=== PATIENT | female | born 1940 | race Caucasian/White ===

== ENCOUNTER 2019-09-14 18:00 | Inpatient (IN) | payer OTHER ==
[~2019-09-14] VITALS: Ht 160 cm; Wt 98.7 kg
[2019-09-14] MEDS ORDERED: PANTOPRAZOLE 40 MG/10 ML VIAL INJ IV ONE (19:00)
[2019-09-14] MEDS ORDERED: SODIUM CHLORIDE 0.9% 1,000 ML IV ONE (19:00)
[2019-09-14] MEDS ORDERED: PANTOPRAZOLE 40mg/50ML NS AE 50 ML IV ONE (19:00)
[2019-09-14 19:06] LABS: Basophils # (auto) 0.1 10 ^3/uL (0-0.2); Basophils % (auto) 0.4 % (0.0-2.0); Eosinophils # (auto) 0.1 10 ^3/uL (0-0.8); Eosinophils % (auto) 0.5 % (0.0-7.0); Hematocrit 44.8 % (36.0-46.0); Lymphocytes # (auto) 1.4 10 ^3/uL (0.4-5.4); Lymphocytes % (auto) 9.2 % (10.0-50.0); Mean Corpuscular Hemoglobin 29.8 pg (28.0-32.0); Mean Corpuscular Hgb Conc. 33.4 g/dL (32.0-36.0); Mean Corpuscular Volume 89.2 fL (80.0-100.0); Monocytes # (auto) 0.9 10 ^3/uL (0-1.3); Monocytes % (auto) 5.8 % (0.0-12.0); Neutrophils # (auto) 13.2 10 ^3/uL (1.6-8.6); Neutrophils % (auto) 84.1 % (37.0-80.0); Nucleated Red Blood Cells % 0.1 %; Platelet Count (auto) 211 10^3/uL (140-450); Red Blood Cells 5.02 10^6/uL (4.0-5.20); Red Cell Distribution Width 13.1 % (11.8-14.3); White Blood Cell 15.7 10^3/uL (4.4-10.8)
[2019-09-14 19:20] LABS: Albumin 3.8 g/dL (3.4-5.0); Calcium 9.3 mg/dL (8.5-10.1); Potassium 3.9 mmol/L (3.5-5.1)
[2019-09-14 19:23] LABS: BUN/Creatinine Ratio 20.3; Bilirubin, Total 2.1 mg/dL (0.2-1.0)
[2019-09-14] MEDS ORDERED: IOHEXOL 300 MG/ML 100ML BOTTLE IJ ONE (21:20)
[2019-09-14 22:22] LABS: INR 1.07 (0.9-1.15); Partial Thromboplastin Time 28.8 sec (23.64-32.05)
[2019-09-15] MEDS ORDERED: MORPHINE SULFATE 4 MG/ML SYR/VIAL IV ONE (08:00)
[2019-09-15] MEDS ORDERED: ONDANSETRON HCL 4 MG/2 ML VIAL IV ONE (08:00)
[2019-09-15 08:46] LABS: Urine Bacteria NONE SEEN /hpf (None Seen); Urine Blood Negative /uL (Negative); Urine Hyaline Cast FEW /lpf (0 - 2); Urine WBC 9 /hpf (0 - 5)
[2019-09-15 08:48] LABS: Urine Specific Gravity > 1.050 (1.001-1.035)
[2019-09-15] MEDS ORDERED: NITROGLYCERIN 0.4 MG SL TAB SL PRN (10:00)
[2019-09-15] MEDS ORDERED: ACETAMINOPHEN 325 MG TAB PO PRN (10:00)
[2019-09-15] MEDS ORDERED: DOCUSATE SOD 100 MG CAP PO PRN (10:00)
[2019-09-15] MEDS ORDERED: MORPHINE SULF INJ 2 MG/ML SYRINGE 1ML IV PRN ×2 (10:00)
[2019-09-15] MEDS ORDERED: LORazepam 0.5 MG TAB PO PRN (10:00)
[2019-09-15] MEDS ORDERED: ONDANSETRON HCL 4 MG/2 ML VIAL IV PRN (10:00)
[2019-09-15] MEDS ORDERED: HYDROcodone-ACET 5/325MG TAB PO PRN (10:00)
[2019-09-15] MEDS: PANTOPRAZOLE 40 MG/10 ML VIAL INJ IV SCH ×2 (10:00→21:02)
[2019-09-15] MEDS ORDERED: ALUM & MAG HYDROX-SIMETH LIQ(MAALOX) 30 ML PO PRN (10:00)
[2019-09-15] MEDS: SOD CHL 0.45% 1,000 ML IV SCH ×2 (10:31→19:55)
[2019-09-15] MEDS ORDERED: metroNIDAZOLE 500MG/100ML 100 ML IV ONE (12:15)
[2019-09-15] MEDS ORDERED: DEXTROSE (50%) 50ML SYRG IV PRN (12:30)
[2019-09-15 12:47] LABS: Cholesterol 145 mg/dL (< 200)
[2019-09-15 12:51] LABS: HDL Cholesterol 34 mg/dL (40-59); LDL Cholesterol 99 mg/dL (< 100); Triglycerides 148 mg/dL (< 150)
[2019-09-15 13:20] VITALS: BP 121/37
[2019-09-15] MEDS ORDERED: metroNIDAZOLE 500MG/100ML 100 ML IV SCH (14:00)
[2019-09-15] MEDS: IPRATROPIUM BROM 0.5 MG/2.5ML INH SOL NEB SCH ×3 (14:56→22:00)
[2019-09-15] MEDS: InsuLIN REG 1unit/0.01ml Soln (100units/ml) SC SCH ×2 (17:00→20:53)
[2019-09-15] MEDS: ACCU-CHEK COMFORT CURVE STRIP VI SCH ×2 (17:28→20:53)
[2019-09-15] MEDS: PYRIDOSTIGMINE BROMIDE 60 MG TAB PO SCH ×2 (18:00→21:19)
--- NOTE | 2019-09-15 18:00 | NUR ---
Respiratory note: SCHED MED NEB TX HELD UNTIL COVID RESULTS ARE AVAILABLE. PT SHOWS NO S/S OF SOB OR RESPIRATORY DISTRESS WILL CONTINUE TO MONITOR.
[2019-09-15] MEDS: FUROSEMIDE 20 MG/2 ML VIAL IV SCH (18:14)
[2019-09-15] MEDS: SOTALOL HCL 80 MG TAB PO SCH (21:10)
[2019-09-15] MEDS ORDERED: APIXABAN 5 MG TAB PO SCH (22:00)
[2019-09-16] MEDS: IPRATROPIUM BROM 0.5 MG/2.5ML INH SOL NEB SCH ×6 (02:00→22:00)
[2019-09-16] MEDS: FUROSEMIDE 20 MG/2 ML VIAL IV SCH (06:00)
[2019-09-16] MEDS: PYRIDOSTIGMINE BROMIDE 60 MG TAB PO SCH ×4 (06:00→22:24)
[2019-09-16] MEDS: ACCU-CHEK COMFORT CURVE STRIP VI SCH ×4 (06:08→22:25)
[2019-09-16] MEDS: SOD CHL 0.45% 1,000 ML IV SCH (06:08)
[2019-09-16] MEDS: InsuLIN REG 1unit/0.01ml Soln (100units/ml) SC SCH ×4 (06:09→22:26)
[2019-09-16 07:17] LABS: INR 1.13 (0.9-1.15); Partial Thromboplastin Time 29.2 sec (23.64-32.05)
[2019-09-16 07:20] LABS: Albumin 3.1 g/dL (3.4-5.0); Anion Gap 5 (5-15); Blood Urea Nitrogen 12 mg/dL (7-18); Calcium 8.7 mg/dL (8.5-10.1); Carbon Dioxide 30 mmol/L (21-32); Chloride 102 mmol/L (98-107); Glucose 114 mg/dL (74-106); Magnesium 2.1 mg/dL (1.6-2.6); Potassium 3.9 mmol/L (3.5-5.1); Sodium 137 mmol/L (136-145)
[2019-09-16 07:28] LABS: Alanine Aminotransferase 23 U/L (13-56); Alkaline Phosphatase 62 U/L (45-117); Aspartate Aminotransferase 20 U/L (15-37); Bilirubin, Total 2.1 mg/dL (0.2-1.0); GFR African American 117 mL/min; GFR Non-African American 97 mL/min; Phosphorus 2.1 mg/dL (2.5-4.90); Total Protein 6.8 g/dL (6.4-8.2)
[2019-09-16 07:32] LABS: Basophils # (auto) 0.1 10 ^3/uL (0-0.2); Basophils % (auto) 0.5 % (0.0-2.0); Eosinophils # (auto) 0.1 10 ^3/uL (0-0.8); Eosinophils % (auto) 1.2 % (0.0-7.0); Hematocrit 39.3 % (36.0-46.0); Hemoglobin 13.1 g/dL (12.2-16.2); Lymphocytes # (auto) 1.8 10 ^3/uL (0.4-5.4); Lymphocytes % (auto) 17.1 % (10.0-50.0); Mean Corpuscular Hemoglobin 30.3 pg (28.0-32.0); Mean Corpuscular Hgb Conc. 33.4 g/dL (32.0-36.0); Mean Corpuscular Volume 90.7 fL (80.0-100.0); Monocytes # (auto) 1.1 10 ^3/uL (0-1.3); Monocytes % (auto) 10.6 % (0.0-12.0); Neutrophils # (auto) 7.6 10 ^3/uL (1.6-8.6); Neutrophils % (auto) 70.6 % (37.0-80.0); Nucleated Red Blood Cells % 0.1 %; Platelet Count (auto) 217 10^3/uL (140-450); Red Blood Cells 4.33 10^6/uL (4.0-5.20); White Blood Cell 10.7 10^3/uL (4.4-10.8)
[2019-09-16] MEDS ORDERED: LIDOCAINE VISCOUS 2% 15ML UD ONE (08:45)
[2019-09-16] MEDS ORDERED: SODIUM CHLORIDE LOCK 10 ML ONE (08:45)
[2019-09-16] MEDS ORDERED: MIDAZOLAM HCL 5 MG/ML-1ML VIAL ONE (08:45)
[2019-09-16] MEDS ORDERED: fentaNYL CITRATE 100 MCG/2 ML VL ONE (08:46)
[2019-09-16] MEDS ORDERED: diphenhdrAMINE HCL 50 MG/1 ML VL ONE (08:46)
--- NOTE | 2019-09-16 08:55 | NUR ---
Telemetry admit from ER [place] admitted to Telemetry unit after SBAR received. Patient oriented to CHANDRIKA SCOTTRN primary RN, unit,277 room,B bed, and unit policies regarding patient care and visiting hours. Patient now on continuous telemetry monitoring, tele box #50 and telemetry reading on arrival to unit is sr 90. Patient placed on bedside oxygen, weighed by bedscale and encouraged to call if they need something. All questions and concerns addressed, patient verbalized understanding. Note:
[2019-09-16] MEDS ORDERED: cefTRIAXone 1GM/50ML D5W 50 ML IV SCH (09:00)
[2019-09-16 09:22] VITALS: BP 94/58
[2019-09-16 09:30] VITALS: BP 128/52
--- NOTE | 2019-09-16 09:35 | NUR ---
Patient taken down to OR. V/S WNL no S/S of distress noted.
[2019-09-16] MEDS: PANTOPRAZOLE 40 MG TAB PO SCH ×2 (10:00→22:24)
--- NOTE | 2019-09-16 10:00 | NUR ---
Respiratory note: Scheduled medneb tx held, pt at procedure at this time. Will return for next scheduled tx.
--- NOTE | 2019-09-16 10:35 | NUR ---
Patient back from OR. V/S taken and WNL. No S/S of distress noted. Patient denies pain at this time. 98.8 temp 128/52 bp, rr 20, 94 hr,93% O2 sats
[2019-09-16] MEDS: SOTALOL HCL 80 MG TAB PO SCH ×2 (11:43→22:24)
--- NOTE | 2019-09-16 11:44 | NUR ---
Patient refusing all po medications at this time. per patient swallowing pills right now hurts to much and doesnt want it at this time. patient educated on importance of medication, patient verbalized understanding, patient still refused.
[2019-09-16 13:00] VITALS: BP 151/58
--- NOTE | 2019-09-16 14:20 | NUR ---
Lagos catheter dc'd Order to discontinue lagos catheter. Lagos dc'd with clean technique following deflation of balloon. Patient tolerated well with no complaints of pain. Continue care. Addendum: 09/16/19 at 1425 by CHANDRIKA SCOTT RN RN wrong patient
[2019-09-16 17:18] VITALS: BP 121/52
--- NOTE | 2019-09-16 18:00 | NUR ---
Medication refused Patient refusing 1800 medication. Per patient "my throat still hurts, I dont want any pills right now". Patient educated on benefits and risk of not taking medication, patient verbalized understanding and patient still refused.
--- NOTE | 2019-09-16 19:30 | NUR ---
Opening Shift Note Assumed care of patient AA&OX4. No S/S of distress/SOB or pain. Pt on 2L NC. Commode at bedside. Bed in lowest locked position, safety precautions in place, call light within reach. Instructed on POC and to call for assist PRN, will continue to monitor for changes Q1hr and PRN. Signed: 09/16/19 at 2123 by CHADD BLANC <Co-Signature Required> Co-Signed: 09/16/19 at 2123 by Joellen Lay RN RN
[2019-09-16 22:00] VITALS: BP 138/67
--- NOTE | 2019-09-16 23:38 | NUR ---
PT REFUSED MED NEB TX AT THIS TIME. PT DENIES ANY RESPIRATORY DISTRESS. NO SHORTNESS OF BREATH NOTED. PT HAD ACCIDENTALLY REMOVED OXYGEN. NC REPLACED AT THIS TIME. SPO2 92% ON 3L NC, HR 100. PT REFUSING 0200 MED NEB TX. WILL RETURN AT 0200 TO CHECK ON PT.
[2019-09-17] MEDS: IPRATROPIUM BROM 0.5 MG/2.5ML INH SOL NEB SCH ×4 (02:00→14:27)
[2019-09-17 05:00] VITALS: BP 138/49
--- NOTE | 2019-09-17 05:15 | NUR ---
PATIENT TEMP ELEVATED 100.0 COOLING MEASURE INITIATED. BLANKETS REMOVED AND ICE PACKS PLACED UNDER ARMS BILATERALLY. WILL RECHECK TEMPERATURE.
--- NOTE | 2019-09-17 05:45 | NUR ---
RECHECKED PATIENT TEMP 98.2 PATIENT RESTING IN BED, WILL CONTINUE TO MONITOR.
[2019-09-17 05:49] LABS: Hematocrit 38.9 % (36.0-46.0); Hemoglobin 13.2 g/dL (12.2-16.2)
[2019-09-17] MEDS: InsuLIN REG 1unit/0.01ml Soln (100units/ml) SC SCH ×3 (06:19→17:00)
[2019-09-17] MEDS: PYRIDOSTIGMINE BROMIDE 60 MG TAB PO SCH ×2 (06:19→14:48)
[2019-09-17] MEDS: ACCU-CHEK COMFORT CURVE STRIP VI SCH ×3 (06:21→17:00)
[2019-09-17 09:00] VITALS: BP 128/87
[2019-09-17] MEDS: SOTALOL HCL 80 MG TAB PO SCH (10:35)
[2019-09-17] MEDS: PANTOPRAZOLE 40 MG TAB PO SCH (10:35)
[2019-09-17] MEDS ORDERED: PANT40TA2 PO (12:39)
[2019-09-17] MEDS ORDERED: SUCR1TAB22 PO (12:39)
[2019-09-17] MEDS ORDERED: SUCRALFATE 1 GM TAB PO ONE (12:45)
--- NOTE | 2019-09-17 16:33 | NUR ---
09/17/19 Faxed to [facility] order for [facility] for safety, Pt, medication management, vitals for when patient is discharged Addendum: 09/18/19 at 1051 by Cara Manuel RN, CM disregard wrong patient Addendum: 09/18/19 at 1056 by Cara Manuel RN, CM disregard addendum above right patient
[2019-09-17 16:45] VITALS: BP 112/88
--- NOTE | 2019-09-17 17:11 | NUR ---
PATIENT DISCHARGING HOME WITH FAMILY. TELEMETRY BOX REMOVED AND RETURNED TO TELEMETRY DEPARTMENT. ALL IV ACCESS DISCONTINUED. ALL DISCHARGE INSTRUCTIONS GIVEN. ALL DISCHARGE PAPERWORK SIGNED.
== END 2019-09-17 17:15 | disposition home health service (06) | DRG 378 ==
LOC: EDBD 18:00 → ER 18:00 → TELE 18:01 → TELE-WESTW 09-16 08:42
PROVIDERS: ADMIT Hospitalist; ATTEND Internal Medicine
PROC: 0DB68ZX Excision of Stomach, Via Natural or Artificial Opening Endoscopic, Diagnostic (ICD-10-PCS; 2019-09-16)
PROC: 0DB98ZX Excision of Duodenum, Via Natural or Artificial Opening Endoscopic, Diagnostic (ICD-10-PCS; principal; 2019-09-16 09:50)
DX: K26.4 Chronic or unspecified duodenal ulcer with hemorrhage (principal); K86.1 Other chronic pancreatitis; R65.10 Systemic inflammatory response syndrome (SIRS) of non-infectious origin without acute organ dysfunction; I48.20 Chronic atrial fibrillation, unspecified; K29.81 Duodenitis with bleeding; I48.91 Unspecified atrial fibrillation; F32.9 Major depressive disorder, single episode, unspecified; G70.00 Myasthenia gravis without (acute) exacerbation; K21.9 Gastro-esophageal reflux disease without esophagitis; K44.9 Diaphragmatic hernia without obstruction or gangrene; K76.0 Fatty (change of) liver, not elsewhere classified; J44.9 Chronic obstructive pulmonary disease, unspecified; R13.10 Dysphagia, unspecified; M41.9 Scoliosis, unspecified; M47.9 Spondylosis, unspecified; E66.9 Obesity, unspecified; E11.40 Type 2 diabetes mellitus with diabetic neuropathy, unspecified; Z88.2 Allergy status to sulfonamides; Z90.49 Acquired absence of other specified parts of digestive tract; Z90.710 Acquired absence of both cervix and uterus; Z79.01 Long term (current) use of anticoagulants; Z98.49 Cataract extraction status, unspecified eye; Z80.8 Family history of malignant neoplasm of other organs or systems; Z82.49 Family history of ischemic heart disease and other diseases of the circulatory system; Z11.59 Encounter for screening for other viral diseases; Z68.36 Body mass index [BMI] 36.0-36.9, adult; K29.71 Gastritis, unspecified, with bleeding
CPT/HCPCS: 36415; 43239; 71045; 74177; 80053; 80061; 81001; 82150; 82962; 83036; 83605; 83690; 83735; 84100; 84443; 84484; 85014; 85018; 85025; 85610; 85730; 87040; 93005; 93306; 94640; 96365; 96375; C9113; G0378; J1815; J2250; J2405; J3490

== ENCOUNTER 2020-05-07 17:54 | Inpatient (IN) | payer OTHER ==
[~2020-05-07] VITALS: Ht 160 cm; Wt 72.0 kg
[~2020-05-07 17:54] MED LIST: PANT40TA2 PO; SUCR1TAB22 PO
[2020-05-07] MEDS ORDERED: DOPamine 1600MCG/ML D5W 250 ML IV SCH (18:30)
[2020-05-07 19:22] LABS: Basophils # (auto) 0.1 10 ^3/uL (0-0.2); Basophils % (auto) 0.6 % (0.0-2.0); Eosinophils # (auto) 0.2 10 ^3/uL (0-0.8); Eosinophils % (auto) 1.7 % (0.0-7.0); Hematocrit 38.2 % (36.0-46.0); Hemoglobin 12.8 g/dL (12.2-16.2); Lymphocytes # (auto) 4.5 10 ^3/uL (0.4-5.4); Lymphocytes % (auto) 47.5 % (10.0-50.0); Mean Corpuscular Hgb Conc. 33.6 g/dL (32.0-36.0); Mean Corpuscular Volume 86.4 fL (80.0-100.0); Monocytes % (auto) 10.3 % (0.0-12.0); Neutrophils # (auto) 3.8 10 ^3/uL (1.6-8.6); Neutrophils % (auto) 39.9 % (37.0-80.0); Platelet Count (auto) 261 10^3/uL (140-450); Red Blood Cells 4.42 10^6/uL (4.0-5.20); Red Cell Distribution Width 14.7 % (11.8-14.3); White Blood Cell 9.5 10^3/uL (4.4-10.8)
[2020-05-07 19:28] LABS: Anion Gap 8 (5-15); Blood Urea Nitrogen 17 mg/dL (7-18); Calcium 8.3 mg/dL (8.5-10.1); Carbon Dioxide 25 mmol/L (21-32); Chloride 107 mmol/L (98-107); Glucose 108 mg/dL (74-106); Magnesium 1.7 mg/dL (1.6-2.6); Potassium 4.7 mmol/L (3.5-5.1); Sodium 140 mmol/L (136-145)
[2020-05-07 19:31] LABS: Alanine Aminotransferase 13 U/L (13-56); Aspartate Aminotransferase 17 U/L (15-37); BUN/Creatinine Ratio 21.8; GFR African American 91 mL/min; GFR Non-African American 75 mL/min
[2020-05-07 19:35] LABS: Alkaline Phosphatase 75 U/L (45-117); Bilirubin, Total 0.7 mg/dL (0.2-1.0); Total Protein 6.9 g/dL (6.4-8.2)
[2020-05-07 19:42] LABS: INR 2.53 (0.9-1.15); Partial Thromboplastin Time 44.5 sec (23.0-31.2)
[2020-05-07] MEDS ORDERED: ONDANSETRON HCL 4 MG/2 ML VIAL ONE (19:42)
[2020-05-07] MEDS ORDERED: ONDANSETRON HCL 4 MG/2 ML VIAL IV ONE (19:45)
[2020-05-07] MEDS ORDERED: SODIUM CHLORIDE 0.9% 1,000 ML IV ONE (21:35)
[2020-05-07] MEDS ORDERED: ATROPINE SULFATE 1 MG/1 ML VIAL ONE (21:42)
[2020-05-07] MEDS ORDERED: ATROPINE SULF 1 MG/10ml SYR IV ONE (21:45)
[2020-05-07] MEDS ORDERED: NOREPINEPHRINE 8 MG/250ML KIT 250 ML IV ONE (21:50)
[2020-05-07] MEDS ORDERED: NOREPINEPHRINE 8 MG/250ML KIT 250 ML IV SCH (22:00)
[2020-05-07] MEDS ORDERED: LIDOCAINE 2%HCL (LOCAL ANESTH.) INJ 20ML MDV ONE (23:01)
[2020-05-07] MEDS ORDERED: phytonadione 1 ML ONE (23:27)
[2020-05-07] MEDS: SOD CHL 0.45% 1,000 ML IV SCH (23:30)
[2020-05-07] MEDS ORDERED: ONDANSETRON HCL 4 MG/2 ML VIAL IV PRN (23:30)
[2020-05-07] MEDS ORDERED: HYDROcodone-ACET 5/325MG TAB PO PRN (23:30)
[2020-05-07] MEDS ORDERED: PHYTONADIONE (VIT K)10 MG/ML 1ML VIAL IV ONE ×2 (23:30)
[2020-05-07] MEDS ORDERED: MORPHINE SULF INJ 2 MG/ML SYRINGE 1ML IV PRN (23:30)
[2020-05-07] MEDS ORDERED: NITROGLYCERIN 0.4 MG SL TAB SL PRN (23:30)
[2020-05-07] MEDS ORDERED: DEXTROSE (50%) 50ML SYRG IV PRN (23:45)
[2020-05-08] VITALS (38 sets, daily range): BP systolic 89–156; BP diastolic 24–73
[2020-05-08] MEDS: ACETAMINOPHEN 325 MG TAB PO PRN ×2 (02:06→21:25)
[2020-05-08 05:28] LABS: Basophils # (auto) 0.1 10 ^3/uL (0-0.2); Basophils % (auto) 0.8 % (0.0-2.0); Eosinophils # (auto) 0 10 ^3/uL (0-0.8); Eosinophils % (auto) 0.4 % (0.0-7.0); Hematocrit 34.8 % (36.0-46.0); Hemoglobin 11.7 g/dL (12.2-16.2); Lymphocytes # (auto) 3.4 10 ^3/uL (0.4-5.4); Lymphocytes % (auto) 48.8 % (10.0-50.0); Mean Corpuscular Hgb Conc. 33.6 g/dL (32.0-36.0); Mean Corpuscular Volume 86.2 fL (80.0-100.0); Monocytes # (auto) 0.8 10 ^3/uL (0-1.3); Monocytes % (auto) 10.8 % (0.0-12.0); Neutrophils # (auto) 2.7 10 ^3/uL (1.6-8.6); Neutrophils % (auto) 39.2 % (37.0-80.0); Platelet Count (auto) 227 10^3/uL (140-450); Red Blood Cells 4.04 10^6/uL (4.0-5.20); Red Cell Distribution Width 14.8 % (11.8-14.3)
[2020-05-08 05:45] LABS: Albumin 2.7 g/dL (3.4-5.0); Calcium 8.3 mg/dL (8.5-10.1); Potassium 4.4 mmol/L (3.5-5.1)
[2020-05-08 05:46] LABS: INR 1.62 (0.9-1.15)
[2020-05-08 05:48] LABS: BUN/Creatinine Ratio 24.7; Bilirubin, Total 1.1 mg/dL (0.2-1.0); Total Protein 6.1 g/dL (6.4-8.2)
[2020-05-08] MEDS: ACCU-CHEK COMFORT CURVE STRIP VI SCH ×4 (07:00→21:26)
[2020-05-08] MEDS: InsuLIN REG 1unit/0.01ml Soln (100units/ml) SC SCH ×4 (07:00→21:25)
[2020-05-08] MEDS ORDERED: ASCORBIC ACID 500 MG TAB PO SCH (10:00)
[2020-05-08] MEDS ORDERED: MULTIPLE VITAMIN TAB PO SCH (10:00)
[2020-05-08] MEDS ORDERED: ZINC SULFATE 220mg CAP or TAB PO SCH (10:00)
[2020-05-08] MEDS: FAMOTIDINE 20 MG TAB PO SCH (10:00)
[2020-05-08] MEDS ORDERED: VANCOMYCIN HCL 1000 MG VL ONE (11:03)
[2020-05-08] MEDS ORDERED: fentaNYL CITRATE 100 MCG/2 ML VL ONE (11:03)
[2020-05-08] MEDS ORDERED: LIDOCAINE 2%HCL (LOCAL ANESTH.) INJ 20ML MDV ONE ×2 (11:03→11:24)
[2020-05-08] MEDS ORDERED: MIDAZOLAM HCL 1MG/1ML-2 ML VIAL ONE (11:03)
[2020-05-08] MEDS ORDERED: VANCOMYCIN 1GM/250ML 250 ML IV ONE (11:04)
[2020-05-08] MEDS ORDERED: IODIXANOL 320MG/ML 100ML BTL IV ONE (11:24)
[2020-05-08] MEDS: SOD CHL 0.45% 1,000 ML IV SCH (12:50)
[2020-05-09] MEDS: SOD CHL 0.45% 1,000 ML IV SCH (02:10)
[2020-05-09 04:59] VITALS: BP 140/73
[2020-05-09] MEDS: ACCU-CHEK COMFORT CURVE STRIP VI SCH ×4 (06:36→21:17)
[2020-05-09] MEDS: InsuLIN REG 1unit/0.01ml Soln (100units/ml) SC SCH ×4 (06:37→21:18)
[2020-05-09 07:46] LABS: INR 1.14 (0.9-1.15)
[2020-05-09 08:00] VITALS: BP 145/78
[2020-05-09] MEDS: FAMOTIDINE 20 MG TAB PO SCH (09:55)
[2020-05-09 12:00] VITALS: BP 119/56
[2020-05-09] MEDS: DOCUSATE SOD 100 MG CAP PO PRN (12:12)
[2020-05-09 16:00] VITALS: BP 109/76
[2020-05-09] MEDS: ACETAMINOPHEN 325 MG TAB PO PRN (21:18)
[2020-05-09 23:20] VITALS: BP 147/62
[2020-05-10 04:56] VITALS: BP 117/62
[2020-05-10 06:33] LABS: INR 1.08 (0.9-1.15)
[2020-05-10] MEDS: ACCU-CHEK COMFORT CURVE STRIP VI SCH ×2 (06:33→11:54)
[2020-05-10] MEDS: InsuLIN REG 1unit/0.01ml Soln (100units/ml) SC SCH ×2 (06:33→11:30)
[2020-05-10 08:30] VITALS: BP 133/76
[2020-05-10] MEDS: FAMOTIDINE 20 MG TAB PO SCH (10:46)
[2020-05-10] MEDS: DOCUSATE SOD 100 MG CAP PO PRN ×2 (10:46→22:38)
[2020-05-10] MEDS ORDERED: METOPROLOL TARTRATE 50 MG TAB PO ONE (12:15)
[2020-05-10] MEDS ORDERED: PYRIDOSTIGMINE BROMIDE 60 MG TAB PO ONE (12:15)
[2020-05-10 12:30] VITALS: BP 113/60
[2020-05-10 14:51] LABS: Urine Bacteria FEW /hpf (None Seen); Urine Blood Negative /uL (Negative); Urine Mucus FEW (None Seen); Urine Specific Gravity 1.017 (1.001-1.035); Urine WBC 22 /hpf (0 - 5)
[2020-05-10 17:00] VITALS: BP 112/51
[2020-05-10] MEDS ORDERED: WARFARIN SODIUM 5 MG TAB PO ONE (17:00)
[2020-05-10] MEDS: PYRIDOSTIGMINE BROMIDE 60 MG TAB PO SCH ×2 (17:52→22:35)
[2020-05-10] MEDS ORDERED: CLOP75TA28 PO (18:09)
[2020-05-10] MEDS ORDERED: WARF2.5T39 PO (18:09)
[2020-05-10] MEDS ORDERED: PYRI30TA PO (18:09)
[2020-05-10] MEDS ORDERED: FAMO20TA10 PO (18:09)
[2020-05-10] MEDS ORDERED: MIRT-66 PO (18:09)
[2020-05-10] MEDS ORDERED: FLE50T PO (18:09)
[2020-05-10 22:00] VITALS: BP 128/66
[2020-05-10] MEDS: METOPROLOL TARTRATE 50 MG TAB PO SCH (22:35)
[2020-05-10] MEDS: ACETAMINOPHEN 325 MG TAB PO PRN (22:39)
[2020-05-11 05:00] VITALS: BP 106/62
[2020-05-11] MEDS: PYRIDOSTIGMINE BROMIDE 60 MG TAB PO SCH ×4 (05:31→22:03)
[2020-05-11 06:28] LABS: INR 1.1 (0.9-1.15)
[2020-05-11 06:32] LABS: Potassium 3.6 mmol/L (3.5-5.1)
[2020-05-11 06:37] LABS: BUN/Creatinine Ratio 18.8; Calcium 8.8 mg/dL (8.5-10.1)
[2020-05-11 07:00] LABS: Hematocrit 40.6 % (36.0-46.0); Hemoglobin 13.2 g/dL (12.2-16.2); Mean Corpuscular Hemoglobin 28.7 pg (28.0-32.0); Mean Corpuscular Hgb Conc. 32.4 g/dL (32.0-36.0); Mean Corpuscular Volume 88.7 fL (80.0-100.0); Platelet Count (auto) 198 10^3/uL (140-450); Red Blood Cells 4.57 10^6/uL (4.0-5.20); Red Cell Distribution Width 14.7 % (11.8-14.3); White Blood Cell 5.9 10^3/uL (4.4-10.8)
[2020-05-11 07:02] LABS: Band Neutrophils % (manual) 0; Basophils % (manual) 0 (0.0-2.0); Blast Cells 0; Metamyelocytes % 0; Myelocytes % 0; Promyelocytes % 0; Reactive Lymphocytes 0
[2020-05-11 08:30] VITALS: BP 144/67
[2020-05-11] MEDS: FAMOTIDINE 20 MG TAB PO SCH (09:13)
[2020-05-11] MEDS: METOPROLOL TARTRATE 50 MG TAB PO SCH ×2 (09:13→21:46)
[2020-05-11 10:25] LABS: Eosinophils % (manual) 4 (0-7); Lymphocytes % (manual) 64 (10.0-50.0); Monocytes % (manual) 5 (0-12)
[2020-05-11] MEDS ORDERED: FLECAINIDE ACETATE 50 MG TAB PO ONE (11:00)
[2020-05-11] MEDS ORDERED: POTASSIUM CHL 20 Meq TABLET PO ONE (11:00)
[2020-05-11] MEDS ORDERED: cefTRIAXone 1GM/50ML D5W 50 ML IV ONE (11:00)
[2020-05-11 12:30] VITALS: BP 124/60
[2020-05-11 16:39] VITALS: BP 107/47
[2020-05-11] MEDS ORDERED: WARFARIN SODIUM 2 MG TAB PO ONE (17:00)
[2020-05-11 22:01] VITALS: BP 117/49
[2020-05-11] MEDS: FLECAINIDE ACETATE 50 MG TAB PO SCH (22:02)
[2020-05-11] MEDS: ACETAMINOPHEN 325 MG TAB PO PRN (22:06)
[2020-05-12 05:18] VITALS: BP 126/64
[2020-05-12 05:56] LABS: INR 1.17 (0.9-1.15); Partial Thromboplastin Time 29.9 sec (23.0-31.2)
[2020-05-12] MEDS: PYRIDOSTIGMINE BROMIDE 60 MG TAB PO SCH ×4 (06:04→22:14)
[2020-05-12 06:09] LABS: Calcium 8.5 mg/dL (8.5-10.1); Potassium 3.7 mmol/L (3.5-5.1)
[2020-05-12] MEDS: cefTRIAXone 1GM/50ML D5W 50 ML IV SCH (08:04)
[2020-05-12 09:00] VITALS: BP 140/52
[2020-05-12] MEDS: FAMOTIDINE 20 MG TAB PO SCH (09:09)
[2020-05-12] MEDS: METOPROLOL TARTRATE 50 MG TAB PO SCH ×2 (09:11→22:14)
[2020-05-12] MEDS: FLECAINIDE ACETATE 50 MG TAB PO SCH ×2 (09:11→22:14)
[2020-05-12 13:00] VITALS: BP 107/59
[2020-05-12 16:48] VITALS: BP 100/65
[2020-05-12] MEDS ORDERED: WARFARIN SODIUM 2 MG TAB PO ONE (17:00)
[2020-05-12 22:00] VITALS: BP 123/55
[2020-05-12] MEDS: ACETAMINOPHEN 325 MG TAB PO PRN (22:18)
[2020-05-13 05:00] VITALS: BP 112/64
[2020-05-13] MEDS: PYRIDOSTIGMINE BROMIDE 60 MG TAB PO SCH ×4 (05:35→22:00)
[2020-05-13 05:54] LABS: Basophils # (auto) 0.1 10 ^3/uL (0-0.2); Basophils % (auto) 1.4 % (0.0-2.0); Eosinophils # (auto) 0.3 10 ^3/uL (0-0.8); Eosinophils % (auto) 5.5 % (0.0-7.0); Hematocrit 37.7 % (36.0-46.0); Hemoglobin 13.1 g/dL (12.2-16.2); Lymphocytes # (auto) 3.2 10 ^3/uL (0.4-5.4); Lymphocytes % (auto) 52.6 % (10.0-50.0); Mean Corpuscular Hemoglobin 29.7 pg (28.0-32.0); Mean Corpuscular Hgb Conc. 34.7 g/dL (32.0-36.0); Mean Corpuscular Volume 85.6 fL (80.0-100.0); Monocytes # (auto) 0.8 10 ^3/uL (0-1.3); Monocytes % (auto) 12.9 % (0.0-12.0); Neutrophils # (auto) 1.7 10 ^3/uL (1.6-8.6); Neutrophils % (auto) 27.6 % (37.0-80.0); Nucleated Red Blood Cells % 0.3 %; Platelet Count (auto) 190 10^3/uL (140-450); Red Cell Distribution Width 14.6 % (11.8-14.3); White Blood Cell 6.1 10^3/uL (4.4-10.8)
[2020-05-13 06:08] LABS: INR 1.26 (0.9-1.15)
[2020-05-13 09:00] VITALS: BP 132/74
[2020-05-13] MEDS: cefTRIAXone 1GM/50ML D5W 50 ML IV SCH (09:52)
[2020-05-13] MEDS: FLECAINIDE ACETATE 50 MG TAB PO SCH ×2 (09:53→22:00)
[2020-05-13] MEDS: FAMOTIDINE 20 MG TAB PO SCH (09:54)
[2020-05-13] MEDS: METOPROLOL TARTRATE 50 MG TAB PO SCH ×3 (09:55→21:57)
[2020-05-13 13:00] VITALS: BP 115/58
[2020-05-13 16:43] VITALS: BP 124/64
[2020-05-13] MEDS ORDERED: WARFARIN SODIUM 2 MG TAB PO ONE (17:00)
[2020-05-13] MEDS: ACETAMINOPHEN 325 MG TAB PO PRN (22:03)
[2020-05-14 00:50] VITALS: BP 128/70
[2020-05-14 01:08] VITALS: BP 113/43
[2020-05-14 01:11] VITALS: BP 113/43
== END 2020-05-14 01:45 | disposition short-term general hospital (02) | DRG 229 ==
LOC: EDBD 17:54 → ER 17:54 → TELE 23:29 → ICU CENTRL 05-08 01:00 → DOU IN ICU 05-08 02:41 → TELE-WESTW 05-08 12:56
PROVIDERS: ADMIT Nurse Practitioner Family; ATTEND Internal Medicine
PROC: 5A1223Z Performance of Cardiac Pacing, Continuous (ICD-10-PCS; principal; 2020-05-07)
PROC: 02PA3NZ Removal of Intracardiac Pacemaker from Heart, Percutaneous Approach (ICD-10-PCS; 2020-05-07)
PROC: 0JH606Z Insertion of Pacemaker, Dual Chamber into Chest Subcutaneous Tissue and Fascia, Open Approach (ICD-10-PCS; 2020-05-07)
PROC: 02H63JZ Insertion of Pacemaker Lead into Right Atrium, Percutaneous Approach (ICD-10-PCS; 2020-05-07)
PROC: 02HK3JZ Insertion of Pacemaker Lead into Right Ventricle, Percutaneous Approach (ICD-10-PCS; 2020-05-07)
PROC: 06HM33Z Insertion of Infusion Device into Right Femoral Vein, Percutaneous Approach (ICD-10-PCS; 2020-05-07)
PROC: B51B1ZA Fluoroscopy of Right Lower Extremity Veins using Low Osmolar Contrast, Guidance (ICD-10-PCS; 2020-05-07)
PROC: B5171ZZ Fluoroscopy of Left Subclavian Vein using Low Osmolar Contrast (ICD-10-PCS; 2020-05-07)
DX: I44.2 Atrioventricular block, complete (principal); D68.69 Other thrombophilia; N39.0 Urinary tract infection, site not specified; I48.0 Paroxysmal atrial fibrillation; G70.00 Myasthenia gravis without (acute) exacerbation; I10 Essential (primary) hypertension; E11.9 Type 2 diabetes mellitus without complications; K21.9 Gastro-esophageal reflux disease without esophagitis; R00.1 Bradycardia, unspecified; R00.0 Tachycardia, unspecified; Z20.822 Contact with and (suspected) exposure to COVID-19; Z80.0 Family history of malignant neoplasm of digestive organs; Z82.49 Family history of ischemic heart disease and other diseases of the circulatory system; Z86.73 Personal history of transient ischemic attack (TIA), and cerebral infarction without residual deficits; Z90.710 Acquired absence of both cervix and uterus; Z95.5 Presence of coronary angioplasty implant and graft; Z90.49 Acquired absence of other specified parts of digestive tract
CPT/HCPCS: 33208; 33210; 36415; 70450; 71045; 75710; 80048; 80053; 81001; 82962; 83036; 83735; 83880; 84443; 84484; 85007; 85025; 85027; 85610; 85730; 86850; 86900; 86901; 87081; 87426; 93005; 93306; 96365; 96366; 96367; 96375; 99152; 99291; C1751; C1785; G0378; J0461; J0696; J2250; J2405; J3430; Q9967

== ENCOUNTER 2022-09-04 10:59 | Emergency (ER) | payer OTHER ==
[~2022-09-04] VITALS: Ht 165.1 cm; Wt 100.0 kg
[~2022-09-04 10:59] MED LIST changes: +CLOP75TA28 PO; +FAMO20TA10 PO; +FLE50T PO; +MIRT-94 PO; +PYRI30TA PO; -SUCR1TAB22 PO; +WARF-110 PO
[2022-09-04 11:39] LABS: Basophils # (auto) 0.1 10 ^3/uL (0-0.2); Basophils % (auto) 0.5 % (0.0-2.0); Eosinophils # (auto) 0 10 ^3/uL (0-0.8); Eosinophils % (auto) 0.3 % (0.0-7.0); Hematocrit 37.7 % (36.0-46.0); Hemoglobin 12.6 g/dL (12.2-16.2); Lymphocytes # (auto) 1.4 10 ^3/uL (0.4-5.4); Lymphocytes % (auto) 12.3 % (10.0-50.0); Mean Corpuscular Hemoglobin 30.1 pg (28.0-32.0); Mean Corpuscular Hgb Conc. 33.5 g/dL (32.0-36.0); Mean Corpuscular Volume 89.8 fL (80.0-100.0); Monocytes # (auto) 1.3 10 ^3/uL (0-1.3); Monocytes % (auto) 11.7 % (0.0-12.0); Neutrophils # (auto) 8.4 10 ^3/uL (1.6-8.6); Neutrophils % (auto) 75.2 % (37.0-80.0); Red Cell Distribution Width 13.2 % (11.8-14.3); White Blood Cell 11.1 10^3/uL (4.4-10.8)
[2022-09-04 11:58] LABS: INR 2.8 (0.9-1.15)
[2022-09-04] MEDS ORDERED: fentaNYL CITRATE 100 MCG/2 ML VL IV ONE (13:30)
[2022-09-04] MEDS ORDERED: levoFLOXacin 500MG 100 ML IV ONE (13:30)
[2022-09-04] MEDS ORDERED: metroNIDAZOLE 500MG/100ML 100 ML IV ONE (13:30)
[2022-09-04] MEDS ORDERED: SODIUM CHLORIDE 0.9% 2,000 ML IV ONE (13:30)
[2022-09-04 15:38] LABS: Potassium 3.7 mmol/L (3.5-5.1); Sodium 141 mmol/L (136-145)
[2022-09-04 15:39] LABS: Alkaline Phosphatase 47 U/L (45-117); Anion Gap 7 (5-15); Aspartate Aminotransferase 17 U/L (15-37); BUN/Creatinine Ratio 14.3 (10.0-20.0); Blood Urea Nitrogen 12 mg/dL (7-18); Carbon Dioxide 25 mmol/L (21-32); Chloride 109 mmol/L (98-107); GFR African American 83 mL/min; GFR Non-African American 69 mL/min; Glucose 131 mg/dL (74-106)
[2022-09-04 15:40] LABS: Alanine Aminotransferase 14 U/L (13-56); Albumin 3.2 g/dL (3.4-5.0); Bilirubin, Total 1.7 mg/dL (0.2-1.0); Calcium 8.5 mg/dL (8.5-10.1); Total Protein 6.5 g/dL (6.4-8.2)
[2022-09-04 21:43] VITALS: BP 140/58
== END 2022-09-04 22:27 | disposition short-term general hospital (02) ==
LOC: ER 10:59 → EDBD 10:59 → ER 22:10
DX: R60.9 Edema, unspecified (principal); K57.92 Diverticulitis of intestine, part unspecified, without perforation or abscess without bleeding; R06.02 Shortness of breath; I10 Essential (primary) hypertension; E11.9 Type 2 diabetes mellitus without complications; K21.9 Gastro-esophageal reflux disease without esophagitis; E78.5 Hyperlipidemia, unspecified; I48.91 Unspecified atrial fibrillation; Z86.73 Personal history of transient ischemic attack (TIA), and cerebral infarction without residual deficits; Z90.710 Acquired absence of both cervix and uterus; Z90.49 Acquired absence of other specified parts of digestive tract; Z90.89 Acquired absence of other organs; Z98.890 Other specified postprocedural states; Z88.2 Allergy status to sulfonamides; Z79.899 Other long term (current) drug therapy
CPT/HCPCS: 36415; 71045; 72100; 74176; 80053; 83880; 84484; 85025; 85610; 85730; 93005

== ENCOUNTER 2023-06-24 23:10 | Emergency (ER) | payer OTHER ==
[~2023-06-24] VITALS: Ht 157.5 cm; Wt 77.2 kg
[2023-06-24 23:33] LABS: Basophils # (auto) 0.1 10 ^3/uL (0-0.2); Basophils % (auto) 1.4 % (0.0-2.0); Eosinophils # (auto) 0.3 10 ^3/uL (0-0.8); Eosinophils % (auto) 3.1 % (0.0-7.0); Hematocrit 39.7 % (36.0-46.0); Hemoglobin 12.7 g/dL (12.2-16.2); Lymphocytes # (auto) 2.4 10 ^3/uL (0.4-5.4); Lymphocytes % (auto) 28.8 % (10.0-50.0); Mean Corpuscular Hemoglobin 28.3 pg (28.0-32.0); Mean Corpuscular Hgb Conc. 31.9 g/dL (32.0-36.0); Mean Corpuscular Volume 88.8 fL (80.0-100.0); Monocytes # (auto) 0.8 10 ^3/uL (0-1.3); Monocytes % (auto) 9.4 % (0.0-12.0); Neutrophils # (auto) 4.7 10 ^3/uL (1.6-8.6); Neutrophils % (auto) 57.3 % (37.0-80.0); Red Blood Cells 4.48 10^6/uL (4.0-5.20); Red Cell Distribution Width 13.9 % (11.8-14.3); White Blood Cell 8.2 10^3/uL (4.4-10.8)
[2023-06-24 23:51] LABS: Alanine Aminotransferase 13 U/L (7-40); Alkaline Phosphatase 82 U/L (46-116); Anion Gap 5 (5-15); Aspartate Aminotransferase 24 U/L (13-40); BUN/Creatinine Ratio 12.5 (10.0-20.0); Blood Urea Nitrogen 11 mg/dL (9-23); Calcium 9.8 mg/dL (8.7-10.4); Carbon Dioxide 28 mmol/L (20-30); Chloride 106 mmol/L (98-107); Glucose 114 mg/dL (74-106); Potassium 4.1 mmol/L (3.5-5.1); Sodium 139 mmol/L (136-145)
[2023-06-24 23:52] LABS: Albumin 4.5 g/dL (3.2-4.8); Total Protein 7.4 g/dL (5.7-8.2)
[2023-06-25] MEDS: NITROGLYCERIN 2% OINT 1GM PKG TD ONE (03:34)
[2023-06-25] MEDS: FUROSEMIDE 40 MG/4 ML VIAL IV ONE (04:04)
[2023-06-25 08:29] VITALS: BP 124/71; TEMP 97.8
[2023-06-25 08:36] VITALS: PULSE 102; RESP 18; O2SAT 95
== END 2023-06-25 09:00 | disposition short-term general hospital (02) ==
LOC: ER 23:10
DX: I11.0 Hypertensive heart disease with heart failure (principal); I50.9 Heart failure, unspecified; K21.9 Gastro-esophageal reflux disease without esophagitis; E78.5 Hyperlipidemia, unspecified; Z86.73 Personal history of transient ischemic attack (TIA), and cerebral infarction without residual deficits; Z88.2 Allergy status to sulfonamides
CPT/HCPCS: 36415; 71045; 80053; 83880; 84484; 85025; 93005; 96374; 99285; J1940

== ENCOUNTER 2023-12-19 02:23 | Emergency (ER) | payer OTHER ==
[~2023-12-19] VITALS: Ht 165.1 cm; Wt 190.0 kg
[2023-12-19 03:04] LABS: Basophils # (auto) 0.1 10 ^3/uL (0-0.2); Basophils % (auto) 0.9 % (0.0-2.0); Eosinophils # (auto) 0.3 10 ^3/uL (0-0.8); Eosinophils % (auto) 4.3 % (0.0-7.0); Hematocrit 30.7 % (36.0-46.0); Hemoglobin 10.2 g/dL (12.2-16.2); Lymphocytes # (auto) 2.3 10 ^3/uL (0.4-5.4); Lymphocytes % (auto) 31.9 % (10.0-50.0); Mean Corpuscular Hemoglobin 29.8 pg (28.0-32.0); Mean Corpuscular Hgb Conc. 33.2 g/dL (32.0-36.0); Mean Corpuscular Volume 89.8 fL (80.0-100.0); Monocytes # (auto) 0.8 10 ^3/uL (0-1.3); Monocytes % (auto) 11.4 % (0.0-12.0); Neutrophils # (auto) 3.6 10 ^3/uL (1.6-8.6); Neutrophils % (auto) 51.5 % (37.0-80.0); Platelet Count (auto) 232 10^3/uL (140-450); Red Blood Cells 3.42 10^6/uL (4.0-5.20); Red Cell Distribution Width 14.7 % (11.8-14.3); White Blood Cell 7.1 10^3/uL (4.4-10.8)
[2023-12-19 03:06] LABS: Alanine Aminotransferase 12 U/L (7-40); Albumin 4.3 g/dL (3.2-4.8); Alkaline Phosphatase 82 U/L (46-116); Anion Gap 4 (5-15); Aspartate Aminotransferase 13 U/L (13-40); BUN/Creatinine Ratio 16.7 (10.0-20.0); Blood Urea Nitrogen 15 mg/dL (9-23); Calcium 9.7 mg/dL (8.7-10.4); Carbon Dioxide 26 mmol/L (20-31); Chloride 111 mmol/L (98-107); Glucose 164 mg/dL (74-106); Potassium 4.1 mmol/L (3.5-5.1); Sodium 141 mmol/L (136-145)
[2023-12-19 03:07] LABS: Bilirubin, Total 0.6 mg/dL (0.2-1.0); Total Protein 6.8 g/dL (5.7-8.2)
[2023-12-19 03:36] VITALS: TEMP 97.6
[2023-12-19 03:59] LABS: Urine Bacteria None Seen /hpf (None Seen)
[2023-12-19 04:17] VITALS: PULSE 82; RESP 14; O2SAT 98
[2023-12-19 04:20] LABS: Urine Blood Negative /uL (Negative); Urine Clarity Clear (Clear); Urine Color Light-Yellow (Yellow); Urine Protein, UAD Negative (Negative); Urine Specific Gravity 1.013 (1.001-1.035); Urine Urobilinogen Normal (Negative); Urine WBC 20 /hpf (0 - 5)
[2023-12-19] MEDS ORDERED: LEVO500T91 PO (05:17)
[2023-12-19 07:39] VITALS: BP 124/39; PULSE 78; RESP 17; O2SAT 92
== END 2023-12-19 09:01 | disposition home or self-care (01) ==
LOC: ER 02:23 → EDBD 02:23 → ER 09:01
DX: R07.9 Chest pain, unspecified (principal); N39.0 Urinary tract infection, site not specified; R00.2 Palpitations; K21.9 Gastro-esophageal reflux disease without esophagitis; E11.9 Type 2 diabetes mellitus without complications; E78.5 Hyperlipidemia, unspecified; I10 Essential (primary) hypertension; I48.91 Unspecified atrial fibrillation; Z86.73 Personal history of transient ischemic attack (TIA), and cerebral infarction without residual deficits; Z79.01 Long term (current) use of anticoagulants; Z79.02 Long term (current) use of antithrombotics/antiplatelets; Z88.2 Allergy status to sulfonamides; Z90.49 Acquired absence of other specified parts of digestive tract; Z90.710 Acquired absence of both cervix and uterus; Z95.0 Presence of cardiac pacemaker
CPT/HCPCS: 36415; 71045; 80053; 81001; 83735; 83880; 84484; 85025; 93005

== ENCOUNTER 2024-07-21 14:57 | Emergency (ER) | payer OTHER ==
[~2024-07-21] VITALS: Ht 160 cm; Wt 75.0 kg
[~2024-07-21 14:57] MED LIST changes: +LEVO500T91 PO
--- NOTE | 2024-07-21 15:14 | ECG ---
[facility] Test Date: 2024-07-21 Test Time: 15:09:20 Pat Name: MORENA LANE Department: ED Room: Gender: F Aquatic Instructor: NIRAJ : 1940 Requested By: MEEK SALGUERO Order Number: [id number] Reading MD: Measurements Intervals [place] Rate: 70 P: 43 SC: 204 QRS: -61 QRSD: 184 T: 93 QT: 522 QTc: 564 Interpretive Statements Atrial-ventricular dual-paced complexes No further analysis attempted due to paced rhythm Please click the below link to view image of tracing.
[2024-07-21] MEDS: SODIUM CHLORIDE 0.9% 500 ML IV ONE (15:30)
--- NOTE | 2024-07-21 15:37 | ED.PDOC ---
History of Present Illness HPI Comments This is an 83-year-old female who comes in with chief complaint of generalized weakness over the past two weeks. The patient has had a decreased appetite and has been having a significant amount of diarrhea. She is also complaining of some epigastric pain which she rates as a 6/10. There has been no fever or chills. The patient went to the [facility] and at the clinic her blood pressure was low so they called 911. The blood pressure was 88 systolic so the patient had an IV Hep-Lock established and was given normal saline at a 500 cc bolus. EN route, the patient had an Accu-Chek of 127. She denies any chest pain with the abdominal pain. For the nausea, the patient was given Zofran 4 mg IV push. When she arrived, she is stating that the nausea has resolved. Chief Complaint: General Weakness Time Seen by MD: 15:01 Primary Care Provider: FERN Reviewed Notes: Nurses Notes, Aging Box Hand Notes, Medications, Allergies (Allergies listed above) Allergies: Coded Allergies: Sulfa Antibiotics (Verified Allergy, Unknown, 09/04/22) Home Meds Active Scripts Levofloxacin Hemihydrate (LEVAQUIN 500 MG) 500 Mg Tab, 1 TAB PO DAILY, #7 TAB Prov:SAMANTHA NAVAS MD 12/19/23 Pantoprazole Sodium Sesquihydr (Protonix) 40 Mg Tab, 40 MG PO BID, #60 TAB Prov:USMAN UNDERWOOD MD 09/17/19 Reported Medications Pyridostigmine Cushing (Pyridostigmine Cushing) 30 Mg Tab, 60 MG PO 4 TIMES A DAY, TAB 05/10/20 Flecainide Acetate (TAMBOCOR TABLET) 50 Mg Tb, 50 MG PO BID, TAB 05/10/20 Warfarin Sodium (Warfarin Sodium) 2.5 Mg Tab, 2.5 MG PO DAILY for 30 Days, MG 05/10/20 Mirtazapine (REMERON) 30 Mg Tab, 15 MG PO HS, TAB 05/10/20 Clopidogrel Bisulfate (Plavix) 75 Mg Tab, 75 MG PO DAILY, TAB 05/10/20 Famotidine (PEPCID TABLET) 20 Mg Tb, 20 MG PO BID, TAB 05/10/20 Information Source: Patient, Emergency Med Personnel Mode of Arrival: EMS Severity: Moderate Timing: Days Duration: Since onset Prehospital treatment: 12 Lead EKG, Accucheck (127), Security Support Analyst, IVF, Other (Normal saline bolus. Zofran 4 mg IV push) Location: Epigastric type abdominal pain with the diarrhea nausea Past Medical History PAST MEDICAL HISTORY: AFIB, Cancer (Previous history of cervical cancer), CVA, DM, GERD, High Lipids, HTN, IL, UTI'S Past Medical History (Other): Myasthenia gravis, neuropathy Surgical History: Cholecystectomy, Hysterectomy, Pacemaker, PTCA, Thyroidectomy Surgical History (Other): Surgery of the thymus gland TOWER AIR TRAFFIC CONTROL SPECIALIST History: No Pertinent TOWER AIR TRAFFIC CONTROL SPECIALIST History Family History Family History: Reviewed,noncontributory to illness Social History Smoker: Non-Smoker Alcohol: Denies ETOH Use Drugs: Denies Drug Use Lives In: Home Constitutional: reports: weakness; denies: chills, diaphoresis, fatigue, fever, malaise, sweats, others EENTM: denies: blurred vision, double vision, ear bleeding, ear discharge, ear drainage, ear pain, ear ringing, eye pain, eye redness, hearing loss, mouth pain, mouth swelling, nasal discharge, nose bleeding, nose congestion, nose pain, photophobia, tearing, throat pain, throat swelling, voice changes, others Respiratory: denies: cough, hemoptysis, orthopnea, SOB at rest, shortness of breath, SOB with excertion, stridor, wheezing, others Cardiovascular: denies: chest pain, dizzy spells, diaphoresis, Dyspnea on exertion, edema, irregular heart beat, left arm pain, lightheadedness, palpitations, PND, syncope, others Gastrointestinal: reports: abdominal pain, diarrhea, nausea, poor appetite; denies: abdomen distended, blood streaked bowels, constipated, dysphagia, difficulty swallowing, hematemesis, melena, poor fluid intake, rectal bleeding, rectal pain, vomiting, others Genitourinary: denies: abnormal vagina bleeding, burning, dyspareunia, dysuria, flank pain, frequency, hematuria, incontinence, pain, , vagina discharge, urgency, others Neurological: denies: dizziness, fainting, headache, left sided numbness, left sided weakness, numbness, paresthesia, pre-existing deficit, right sided numbness, right sided weakness, seizure, speech problems, tingling, tremors, weakness, others Musculoskeletal: denies: back pain, gout, joint pain, joint swelling, muscle pain, muscle stiffness, neck pain, others Integumetry: denies: bruises, change in color, change in hair/nails, dryness, laceration, lesions, lumps, rash, wounds, others Allergic/Immunocompromised: denies: Difficulty Healing, Frequent Infections, Hives, Itching, others Hematologic/Lymphatic: denies: anemia, blood clots, easy bleeding, easy bruising, swollen glands, others Endocrine: denies: excessive hunger, excessive sweating, excessive thirst, excessive urination, flushing, intolerance to cold, intolerance to heat, unexplained weight gain, unexplained weight loss, others Psychiatric: denies: anxiety, bipolar disorder, depression, hopeless, panic disorder, schizophrenia, sleepless, suicidal, others Physical Exam General Appearance: Moderate Distress, Obese HEENT: Pale Conjuntivae (L), Pale Conjuntivae (R), Pharynx Normal, TMs Normal Neck: Full Range of Motion, Non-Tender, Normal, Normal Inspection Respiratory: Chest Non-Tender, Lungs Clear, No Accessory Muscle Use, No Respiratory Distress, Normal Breath Sounds Cardiovascular: No Edema, No JVD, No Murmur, No Gallop, Normal Peripheral Pulses, Regular Rate/Rhythm Breast Exam: Deferred Gastrointestinal: Epigastric, No Organomegaly, No Pulsatile Mass, Normal Bowel Sounds, Soft, Tenderness Genitalia: Deferred Pelvic: Deferred Rectal: Deferred Extremities: No calf tenderness, Normal capillary refill, Normal inspection, Normal range of motion, Non-tender, No pedal edema Musculoskeletal : Apperance: Normal Neurologic: Alert, propeller mechanic II-XII nml as Tested, Motor Weakness, Normal Affect, Normal Mood, No Sensory Deficits Cerebellar Function: Normal Reflexes: Normal Skin: Dry, Normal Color, Warm Lymphatic: No Adenopathy Was a procedure done? Was a procedure done?: No EKG EKG : Pulse Rate (adult): 70 Cardiac Rhythm: Paced Block: None Differential Dx Considerations may include: Generalized weakness, electrolyte imbalance, dehydration X-Ray, Labs, Meds, VS Vital Signs Date Time Temp Pulse Resp B/P (MAP) Pulse Ox O2 Delivery O2 Flow Rate FiO2 07/21/24 18:00 80 16 138/42 (74) 96 07/21/24 16:08 82 16 96 Nasal Cannula* 2 28 07/21/24 16:08 98.7 82 16 125/36 (65) 96 98.7 07/21/24 15:37 70 07/21/24 15:12 98.7 73 16 118/49 (72) 96 98.7 07/21/24 15:09 70 07/21/24 14:57 98.7 73 16 118/49 (72) 93 98.7 Lab Test 07/21/24 17:08 07/21/24 15:50 Range/Units Troponin I High Sensitivity 4 4 </=34 ng/L White Blood Count 6.8 4.4-10.8 10^3/uL Red Blood Count 4.61 4.0-5.20 10^6/uL Hemoglobin 10.9 L 12.2-16.2 g/dL Hematocrit 34.5 L 36.0-46.0 % Mean Corpuscular Volume 74.7 L 80.0-100.0 fL Mean Corpuscular Hemoglobin 23.6 L 28.0-32.0 pg Mean Corpuscular Hemoglobin Concent 31.6 L 32.0-36.0 g/dL Red Cell Distribution Width 18.1 H 11.8-14.3 % Platelet Count 288 140-450 10^3/uL Mean Platelet Volume 7.5 6.9-10.8 fL Neutrophils (%) (Auto) 37.0-80.0 % Lymphocytes (%) (Auto) 10.0-50.0 % Monocytes (%) (Auto) 0.0-12.0 % Basophils (%) (Auto) 0.0-2.0 % Neutrophils # (Auto) 1.6-8.6 10 ^3/uL Lymphocytes # (Auto) 0.4-5.4 10 ^3/uL Monocytes # (Auto) 0-1.3 10 ^3/uL Differential Total Cells Counted 100.0 100 Neutrophils % (Manual) 51 37.0-80.0 Band Neutrophils % (Manual) 15 Lymphocytes % (Manual) 25 10.0-50.0 Monocytes % (Manual) 8 0-12 Eosinophils % (Manual) 1 0-7 Basophils % (Manual) 0 0.0-2.0 Metamyelocytes % (manual) 0 Myelocytes % (Manual) 0 Promyelocytes % (Manual) 0 Blast Cells % (Manual) 0 Reactive Lymphocytes 0 Platelet Estimate Adequate Microcytosis Slight Sodium Level 141 136-145 mmol/L Potassium Level 4.5 3.5-5.1 mmol/L Chloride Level 107 98-107 mmol/L Carbon Dioxide Level 25 20-31 mmol/L Anion Gap 9 5-15 Blood Urea Nitrogen 17 9-23 mg/dL Creatinine 0.97 0.550-1.02 mg/dL Glomerular Filtration Rate Calc 57 >90 mL/min BUN/Creatinine Ratio 17.5 10.0-20.0 Serum Glucose 146 H 74-106 mg/dL Lactic Acid Level 1.5 0.4-2.0 mmol/L Calcium Level 8.9 8.7-10.4 mg/dL Current Medications Medications (Trade) Dose Ordered Sig/Lesly Route Start Time Stop Time Status Last Admin Sodium Chloride 500 ml @ 500 mls/hr Q1H ONCE IV 07/21/24 15:15 07/21/24 16:14 DC 07/21/24 15:30 IV Hep-Lock was established. The patient is being bolused with normal saline The patient's CBC shows a hemoglobin of 10.9 and hematocrit of 34.5 The chemistry panel is within normal limits except for mild hyperglycemia at 146 The lactic acid level is negative The CAT scan of the abdomen and pelvis is within normal limits The chest x-ray is negative We did contact [facility] because the patient remained symptomatic They are going to transfer the patient to their facility The patient was deemed stable for transfer The authorization #[id number] Images Reviewed?: Images reviewed and evaluated by me Time of 1ST Reevaluation: 15:35 Reevaluation 1ST: Unchanged Patient Education/Counseling: Diagnosis, Treatment, Prognosis Family Education/Counseling: No Family Present Sepsis Sepsis Reasesment Focused Exam Orders: Laboratory Tests 07/21/24 15:50: Lactic Acid Level 1.5 Departure 1 Departure Time of Disposition: 19:49 Impression: Primary Impression: Generalized weakness Additional Impression: Dehydration Disposition: 51 HOSPICE/MEDICAL FACILITY Condition: Fair Critical Care Note Critical Care Time?: Yes (35 min-critical care time only) Stability Stability form required: Yes Stable for transfer: Intended for transfer (Health plan request transfer), To designated facility Heart Score Heart Score: Heart Score Response (Comments) Value History Moderate Suspicious 1 EKG Normal 0 Age >65 2 Risk Factors >3 or Hx ASHD 2 Troponin N/A 0 Total 5 MEEK SALGUERO MD July 21, 2024 15:37
--- NOTE | 2024-07-21 15:56 | DVH ---
INDICATION: weakness TECHNIQUE: Frontal view of the chest. COMPARISON: XY CHEST PORTABLE on DOS: 12/19/23, XY CHEST PORTABLE on DOS: 06/24/23, XY CHEST PORTABLE on DOS: 09/04/22, CHEST PORTABLE on DOS: 05/10/20, CHEST PORTABLE on DOS: 05/07/20 FINDINGS: Findings. The heart and mediastinal contours are grossly unremarkable. Left-sided pacemaker with lead s in right atrium and right ventricle. Sternal wires seen median sternotomy. Surgical clips in the nicole perior mediastinal region. There is no evidence of pleural disease. The lungs are clear. The bony structures of the chest are intact without fracture. IMPRESSION: 1. No evidence of acute disease. 2. Status post median sternotomy 3. Unchanged from prior study
[2024-07-21 16:07] LABS: Hemoglobin 10.9 g/dL (12.2-16.2); White Blood Cell 6.8 10^3/uL (4.4-10.8)
[2024-07-21 16:08] VITALS: PULSE 82; RESP 16; O2SAT 96
[2024-07-21 16:08] LABS: Hematocrit 34.5 % (36.0-46.0); Mean Corpuscular Hemoglobin 23.6 pg (28.0-32.0); Mean Corpuscular Hgb Conc. 31.6 g/dL (32.0-36.0); Mean Corpuscular Volume 74.7 fL (80.0-100.0); Platelet Count (auto) 288 10^3/uL (140-450); Red Blood Cells 4.61 10^6/uL (4.0-5.20); Red Cell Distribution Width 18.1 % (11.8-14.3)
--- NOTE | 2024-07-21 16:08 | DVH ---
Exam: CT CT AB PEL WO CON-NO ORAL OR IV History: pain Comparison Study: CT CT AB PEL WO CON-NO ORAL OR IV on DOS: 09/04/22 TECHNIQUE: Multidetector CT of the abdomen was performed from lung bases to pubic symphysis. Imaging was performed without IV contrast. Axial, coronal and sagittal multiplanar reformats were obtained fr om the axial data set by the technologist. Radiation Dose Information: CT Dose: CTDI volume is 14.96 mGy. Dose-length product is 796.26 mGy*cm FINDINGS: Evaluation of solid organs is limited due to lack of intravenous contrast use. Findings: Lung Bases: No acute or significant lung base finding. Normal heart size. No pleural or pericardial effusion. Liver: The liver is normal in size. No focal lesions. Gallbladder and Biliary Tree: Gallbladder has been surgically removed. Spleen: Unremarkable Pancreas: The pancreas is grossly normal in appearance. Adrenal Glands: Unremarkable Kidneys: Kidneys are grossly normal without calculi or hydronephrosis. Bladder: Grossly unremarkable for degree of distention. Bowel: The stomach is grossly normal in appearance. Small bowel and colon are normal in caliber and d istribution. The appendix is not visualized; however, no secondary findings of acute appendicitis id entified. Ascites: Absent Lymphadenopathy: No mesenteric, retroperitoneal or periportal lymphadenopathy. Abdominal Wall and Mesentery: Unremarkable. Vasculature: The visualized abdominal aorta is normal in size and caliber. Evaluation of abdominal a nd pelvic vessels is limited due to lack of intravenous contrast. Pelvic Organs: Unremarkable Musculoskeletal: No aggressive focal bony lesions, acute fractures or dislocation. Soft tissues: Unremarkable IMPRESSION: 1. No infiltrates or effusions. 2. Bilateral renal cysts 3. Gallbladder has been surgically removed. 4. Bony spondylosis and degenerative disc changes throughout the lumbar spine with a levoscoliosis in the lumbar spine dextroscoliosis in the thoracic spine. Radiation optimization: All CT scans at this facility use at least one of these dose optimization alisha hniques: automated exposure control mA and/or kV adjustment per patient size (includes targeted exam s where dose is matched to clinical indication) or iterative reconstruction.
[2024-07-21 16:12] LABS: Basophils % (manual) 0 (0.0-2.0); Blast Cells 0; Metamyelocytes % 0; Myelocytes % 0; Promyelocytes % 0; Reactive Lymphocytes 0
[2024-07-21 16:14] LABS: Potassium 4.5 mmol/L (3.5-5.1); Sodium 141 mmol/L (136-145)
[2024-07-21 16:15] LABS: Anion Gap 9 (5-15); Carbon Dioxide 25 mmol/L (20-31)
[2024-07-21 16:16] LABS: Calcium 8.9 mg/dL (8.7-10.4)
[2024-07-21 16:18] LABS: Chloride 107 mmol/L (98-107)
[2024-07-21 16:21] LABS: BUN/Creatinine Ratio 17.5 (10.0-20.0); Blood Urea Nitrogen 17 mg/dL (9-23); Glucose 146 mg/dL (74-106)
[2024-07-21 16:24] LABS: Band Neutrophils % (manual) 15; Eosinophils % (manual) 1 (0-7); Lymphocytes % (manual) 25 (10.0-50.0); Monocytes % (manual) 8 (0-12); Platelet Estimate Adequate
[2024-07-21 19:44] VITALS: PULSE 78; RESP 18; O2SAT 96
[2024-07-21 21:19] VITALS: BP 139/37; PULSE 71; RESP 24; TEMP 98.8; O2SAT 99
== END 2024-07-21 21:19 | disposition short-term general hospital (02) ==
LOC: EDBD 14:57 → ER 15:06
DX: R53.1 Weakness (principal); E86.0 Dehydration; I48.91 Unspecified atrial fibrillation; I10 Essential (primary) hypertension; E11.9 Type 2 diabetes mellitus without complications; Z79.899 Other long term (current) drug therapy; Z86.73 Personal history of transient ischemic attack (TIA), and cerebral infarction without residual deficits; Z88.2 Allergy status to sulfonamides; Z98.890 Other specified postprocedural states; Z95.0 Presence of cardiac pacemaker; Z90.710 Acquired absence of both cervix and uterus
CPT/HCPCS: 36415; 71045; 74176; 80048; 82947; 83605; 84484; 85007; 85027; 87040; 93005

== ENCOUNTER 2024-08-14 19:46 | Emergency (ER) | payer OTHER ==
[~2024-08-14] VITALS: Ht 157.5 cm; Wt 86.2 kg
--- NOTE | 2024-08-14 20:08 | ED.PDOC ---
History of Present Illness HPI Comments 83-year-old female who came to ER via EMS for generalized weakness. Patient has history of hypertension, diabetes, AFib, mi, CHF, myasthenia gravis. Has been having episodes of generalized weakness for the past few weeks. Was seen here 3 weeks ago for similar complaints, and was transferred to [facility]. Discharged after revealing unremarkable results. Patient still with episodes of weakness. Ambulates with a walker. Earlier today, her legs felt weak and it gave way, as she fell on her buttocks. Denies any head trauma or loss of consciousn ess. Denies any acute chest pains. Chief Complaint: General Weakness Time Seen by MD: 20:07 Primary Care Provider: BANNOCK Khadijah Notes: Pump Technician Notes Allergies: Coded Allergies: Sulfa Antibiotics (Verified Allergy, Unknown, 09/04/22) Home Meds Active Scripts Levofloxacin Hemihydrate (LEVAQUIN 500 MG) 500 Mg Tab, 1 TAB PO DAILY, #7 TAB Prov:SAMANTHA NAVAS MD 12/19/23 Pantoprazole Sodium Sesquihydr (Protonix) 40 Mg Tab, 40 MG PO BID, #60 TAB Prov:USMAN UNDERWOOD MD 09/17/19 Reported Medications Pyridostigmine [place] (Pyridostigmine [place]) 30 Mg Tab, 60 MG PO 4 TIMES A D AY, TAB 05/10/20 Flecainide Acetate (TAMBOCOR TABLET) 50 Mg Tb, 50 MG PO BID, TAB 05/10/20 Warfarin Sodium (Warfarin Sodium) 2.5 Mg Tab, 2.5 MG PO DAILY for 30 Days, MG 05/10/20 Mirtazapine (REMERON) 30 Mg Tab, 15 MG PO HS, TAB 05/10/20 Clopidogrel Bisulfate (Plavix) 75 Mg Tab, 75 MG PO DAILY, TAB 05/10/20 Famotidine (PEPCID TABLET) 20 Mg Tb, 20 MG PO BID, TAB 05/10/20 Information Source: Patient Mode of Arrival: EMS Severity: Moderate Timing: Weeks Duration: Intermittent Review of Systems REVIEW OF SYSTEMS: No fever, no chills, or fatigue HEENT: No sore throat, no earache, no congestion, no neck pain. Cardiac: No chest pain. No palpitations. Lungs: No shortness of breath, no cough. GI: No nausea, no vomiting, no diarrhea, no constipation, no abdominal pain : No dysuria, frequency, or urgency. No hematuria. Musculoskeletal: No joint pain , no joint swelling, no extremity edema. Skin: No rash, no itching. Neuro: No headache, no dizziness, (+) leg weakness Vital Signs Vital Signs Date Time Temp Pulse Resp B/P (MAP) Pulse Ox O2 Delivery O2 Flow Rate FiO2 08/15/24 01:51 98.4 87 16 158/64 (95) 95 98.4 08/15/24 01:40 Room Air* 0 21 Physical Exam General: Awake, alert and oriented. No acute distress. Skin: Skin in warm, dry and intact. Appropriate color for ethnicity. Nailbeds pink with no cyanosis. HEENT: The head is normocephalic and atraumatic. Conjunctivae are clear without exudates or hemorrhage. Sclera is non-icteric. EOM are intact. No signs of nystagmus. Eyelids are normal in appearance without swelling or lesions. Oral mucosa is pink and moist Neck: The neck is supple with normal range of motion. No JVD. Cardiac: Heart rate and rhythm are normal. Respiratory: No signs of respiratory distress. Abdominal: Abdomen is soft, non-tender without distention. Bowel sounds are present and normoactive in all four quadrants. Extremities: 2+ pitting bilateral lower extremity edema Neurological: The patient is awake, alert and oriented to person, place, and time with normal speech. Speech is clear. There is no facial asymmetry. Patient is unable to lift either leg on the exam bed. Psychiatric: Appropriate mood and affect. Good judgement and insight. No visual or auditory hallucinations. Past Medical History PAST MEDICAL HISTORY: AFIB, Cancer (cervical), CVA, DM, GERD, High Lipids, HTN, NC, UTI'S Past Medical History (Other): Myasthenia gravis Surgical History: CABG, Cholecystectomy, Hysterectomy, Pacemaker, PTCA, Thyroidectomy EP TECHNOLOGIST History: No Pertinent EP TECHNOLOGIST History Family History Family History: Reviewed,noncontributory to illness Social History Smoker: Non-Smoker Alcohol: Denies ETOH Use Drugs: Denies Drug Use Lives In: Home Was a procedure done? Was a procedure done?: No Differential Dx Considerations may include: Anemia, electrolyte imbalance, weakness, congestive heart failure X-Ray, Labs, Meds, VS Vital Signs Date Time Temp Pulse Resp B/P (MAP) Pulse Ox O2 Delivery O2 Flow Rate FiO2 08/15/24 01:51 98.4 87 16 158/64 (95) 95 98.4 08/15/24 01:40 95 Room Air* 0 21 08/14/24 20:00 98.7 75 14 117/65 (82) 98 98.7 Lab Test 08/15/24 00:18 08/14/24 21:06 08/14/24 20:13 Range/Units Prothrombin Time 50.1 H 9.3-11.8 sec Prothrombin Time INR 5.61 *H 0.9-1.15 Troponin I High Sensitivity 4 < 3 L </=34 ng/L White Blood Count 10.6 4.4-10.8 10^3/uL Red Blood Count 4.47 4.0-5.20 10^6/uL Hemoglobin 10.7 L 12.2-16.2 g/dL Hematocrit 33.2 L 36.0-46.0 % Mean Corpuscular Volume 74.3 L 80.0-100.0 fL Mean Corpuscular Hemoglobin 23.9 L 28.0-32.0 pg Mean Corpuscular Hemoglobin Concent 32.2 32.0-36.0 g/dL Red Cell Distribution Width 18.7 H 11.8-14.3 % Platelet Count 356 140-450 10^3/uL Mean Platelet Volume 7.2 6.9-10.8 fL Neutrophils (%) (Auto) 76.9 37.0-80.0 % Lymphocytes (%) (Auto) 9.8 L 10.0-50.0 % Monocytes (%) (Auto) 12.6 H 0.0-12.0 % Eosinophils (%) (Auto) 0.3 0.0-7.0 % Basophils (%) (Auto) 0.4 0.0-2.0 % Neutrophils # (Auto) 8.1 1.6-8.6 10 ^3/uL Lymphocytes # (Auto) 1.0 0.4-5.4 10 ^3/uL Monocytes # (Auto) 1.3 0-1.3 10 ^3/uL Eosinophils # (Auto) 0 0-0.8 10 ^3/uL Basophils # (Auto) 0 0-0.2 10 ^3/uL Nucleated Red Blood Cells 0.0 % Sodium Level 138 136-145 mmol/L Potassium Level 4.3 3.5-5.1 mmol/L Chloride Level 103 98-107 mmol/L Carbon Dioxide Level 26 20-31 mmol/L Anion Gap 9 5-15 Blood Urea Nitrogen 9 9-23 mg/dL Creatinine 1.01 0.550-1.02 mg/dL Glomerular Filtration Rate Calc 55 >90 mL/min BUN/Creatinine Ratio 8.9 L 10.0-20.0 Serum Glucose 131 H 74-106 mg/dL Lactic Acid Level 1.7 0.4-2.0 mmol/L Calcium Level 8.4 L 8.7-10.4 mg/dL Magnesium Level 1.7 1.6-2.6 mg/dL Creatine Kinase 27 L 34-145 U/L B-Type Natriuretic Peptide 161.19 0-100 pg/mL Lipase 39 12-53 U/L Thyroid Stimulating Hormone (TSH) 0.37 L 0.55-4.78 uIU/mL Time of 1ST Reevaluation: 20:01 Reevaluation 1ST: Unchanged Patient Education/Counseling: Other (Need for transfer) Family Education/Counseling: No Family Present SEPSIS Sepsis Screen Physician Orders Rapid Influenza A&B (08/14/24 19:57) Urinalysis (08/14/24 19:57) Imaging Transfer Request (08/15/24 00:12) Electrocardigram (08/15/24 00:12) Chest Xray 1 View (08/15/24 00:13) Vital Signs Date Time Temp Pulse Resp B/P (MAP) Pulse Ox O2 Delivery O2 Flow Rate FiO2 08/15/24 01:51 98.4 87 16 158/64 (95) 95 98.4 08/15/24 01:40 95 Room Air* 0 21 08/14/24 20:00 98.7 75 14 117/65 (82) 98 98.7 Laboratory Tests Test 08/14/24 20:13 Lactic Acid Level 1.7 mmol/L (0.4-2.0) White Blood Count 10.6 10^3/uL (4.4-10.8) Departure 1 Departure Time of Disposition: 01:54 Impression: Primary Impression: Generalized weakness Additional Impressions: Inability to walk Supratherapeutic INR Disposition: 02 SHORT TERM HOSPITAL Condition: Stable Comments Patient transferred to [place] for further treatment, evaluation and monitoring. Critical Care Note Critical Care Time?: No Stability Stability form required: No Heart Score Heart Score: Heart Score Response (Comments) Value History N/A 0 EKG N/A 0 Age N/A 0 Risk Factors N/A 0 Troponin N/A 0 Total 0 I personally scribed for WOJCIECH ABDI MD ([email or web address]) on 08/14/24 at 20:08. Electronically submitted by Rei Valdez ([email or web address]). WOJCIECH ABDI MD Aug 14, 2024 20:08
[2024-08-14 20:27] LABS: Basophils # (auto) 0 10 ^3/uL (0-0.2); Basophils % (auto) 0.4 % (0.0-2.0); Eosinophils # (auto) 0 10 ^3/uL (0-0.8); Eosinophils % (auto) 0.3 % (0.0-7.0); Hemoglobin 10.7 g/dL (12.2-16.2); Lymphocytes % (auto) 9.8 % (10.0-50.0)
[2024-08-14 20:30] LABS: Hematocrit 33.2 % (36.0-46.0); Mean Corpuscular Hemoglobin 23.9 pg (28.0-32.0); Mean Corpuscular Hgb Conc. 32.2 g/dL (32.0-36.0); Mean Corpuscular Volume 74.3 fL (80.0-100.0); Monocytes # (auto) 1.3 10 ^3/uL (0-1.3); Monocytes % (auto) 12.6 % (0.0-12.0); Neutrophils # (auto) 8.1 10 ^3/uL (1.6-8.6); Neutrophils % (auto) 76.9 % (37.0-80.0); Platelet Count (auto) 356 10^3/uL (140-450); Red Blood Cells 4.47 10^6/uL (4.0-5.20); Red Cell Distribution Width 18.7 % (11.8-14.3); White Blood Cell 10.6 10^3/uL (4.4-10.8)
[2024-08-14 20:43] LABS: Chloride 103 mmol/L (98-107); Potassium 4.3 mmol/L (3.5-5.1); Sodium 138 mmol/L (136-145)
[2024-08-14 20:44] LABS: Anion Gap 9 (5-15); Carbon Dioxide 26 mmol/L (20-31)
[2024-08-14 20:49] LABS: BUN/Creatinine Ratio 8.9 (10.0-20.0); Blood Urea Nitrogen 9 mg/dL (9-23); Lipase 39 U/L (12-53)
[2024-08-14 20:50] LABS: Magnesium 1.7 mg/dL (1.6-2.6)
[2024-08-14 20:54] LABS: Calcium 8.4 mg/dL (8.7-10.4); Creatine Kinase IFCC 27 U/L (34-145); Glucose 131 mg/dL (74-106)
[2024-08-15 00:49] LABS: Prothrombin Time 50.1 sec (9.3-11.8)
[2024-08-15 00:53] LABS: INR 5.61 (0.9-1.15)
[2024-08-15 01:40] VITALS: O2SAT 95
[2024-08-15 01:51] VITALS: BP 158/64; PULSE 87; RESP 16; TEMP 98.4; O2SAT 95
== END 2024-08-15 00:29 | disposition short-term general hospital (02) ==
LOC: ER 19:46 → EDBD 19:46 → ER 08-15 00:29
DX: R53.1 Weakness (principal); R26.2 Difficulty in walking, not elsewhere classified; R79.1 Abnormal coagulation profile; G70.00 Myasthenia gravis without (acute) exacerbation; E11.9 Type 2 diabetes mellitus without complications; I11.0 Hypertensive heart disease with heart failure; I25.2 Old myocardial infarction; I48.91 Unspecified atrial fibrillation; I50.9 Heart failure, unspecified; Z79.01 Long term (current) use of anticoagulants; Z79.02 Long term (current) use of antithrombotics/antiplatelets; Z79.899 Other long term (current) drug therapy; Z86.73 Personal history of transient ischemic attack (TIA), and cerebral infarction without residual deficits; Z87.440 Personal history of urinary (tract) infections; Z88.2 Allergy status to sulfonamides; Z90.49 Acquired absence of other specified parts of digestive tract; Z90.710 Acquired absence of both cervix and uterus; Z95.0 Presence of cardiac pacemaker; Z95.1 Presence of aortocoronary bypass graft
CPT/HCPCS: 36415; 80048; 82550; 83605; 83690; 83735; 83880; 84443; 84484; 85025; 85610

== ENCOUNTER 2024-12-28 15:07 | Inpatient (IN) | payer OTHER ==
[~2024-12-28] VITALS: Ht 152.4 cm; Wt 74.5 kg
--- NOTE | 2024-12-28 15:20 | ECG ---
[facility] Test Date: 2024-12-28 Test Time: 15:13:44 Pat Name: MORENA LANE Department: [facility] ED Room: 0277T Gender: F Roller [place]: kendall : 1940 Requested By: MEEK SALGUERO Order Number: [id number] Reading MD: Dre Lowe Measurements Intervals Binger Rate: 75 P: 52 ME: 53 QRS: -47 QRSD: 170 T: 98 QT: 499 QTc: 558 Interpretive Statements Atrial-sensed ventricular-paced complexes No further analysis attempted due to paced rhythm Electronically Signed On 12-30-2024 13:37:09 PST by Dre Lowe Please click the below link to view image of tracing.
[2024-12-28] MEDS: methylPREDNISolone SOD SUCC 125 MG/2 ML VL IV ONE (15:30)
[2024-12-28 15:48] VITALS: PULSE 87; RESP 22; O2SAT 92
[2024-12-28 15:54] LABS: Hematocrit 40.7 % (36.0-46.0); Hemoglobin 13.6 g/dL (12.2-16.2); Mean Corpuscular Hemoglobin 29.2 pg (28.0-32.0); Mean Corpuscular Volume 87.6 fL (80.0-100.0); Nucleated Red Blood Cells % 0.2 %
--- NOTE | 2024-12-28 15:54 | DVH ---
CHEST RADIOGRAPH Indication: sob Technique: Single frontal view of the chest was obtained Comparison: XY CHEST PORTABLE on DOS: 07/21/24, XY CHEST PORTABLE on DOS: 12/19/23, XY CHEST PORTABLE on DOS: 06/24/23 FINDINGS: Lines and Tubes: Dual-chamber pacemaker in place with pulse generator over the left chest unchanged f rom 07/21/2024. Lungs: Increased airspace disease right lower lobe suggesting pneumonia. Pleura: No effusion. No pneumothorax. Cardiomediastinal contours: Stable in size. Calcified mitral annulus. Bones: No acute osseous abnormality. IMPRESSION: 1. Interval development of a interstitial Airspace disease right lower lobe. May represent pneumonia correlate clinically
--- NOTE | 2024-12-28 16:01 | ED.PDOC ---
SOB-HPI HPI Comments This is an 84-year-old female who comes in with chief complaint of shortness for breath. Patient has had a cough for the past five days with green phlegm. The patient states that she has also had a fever somewhat off and on. She has had chest pain which she describes as aching in nature and rated as a 6/10. She d enies any nausea, vomiting or diarrhea. The patient went to the local urgent care at [place] and they went ahead and called 911. The patient was given a hand-held nebulizer x1 by the paramedics with some improvement. The patient's oxygen saturation at the clinic was 87% on room air. The patient was then placed on 2 L nasal cannula and transported to our facility. The rhythm was a paced rhythm because the patient does have a history of pacemaker. Upon arrival, the patient is able to give us her medical history and is speaking in full sentences after receiving the oxygen. Chief Complaint: Shortness of Breath Time Seen by MD: 15:18 Primary Care Provider: OLIVEBRIDGE Reviewed notes: Nurses Notes, Material Damage Appraiser Notes, Medications, Allergies (Allergies to sulfa) Information Source: Patient, Emergency Med Personnel Mode of Arrival: EMS Severity: Moderate Timing: Days (Cough started five days ago) Duration: Since onset Context: At Rest PE Risk Factors: None History of: None Prehospital treatment: None Modifying Factors: Inhaler Associated Signs and Symptoms: Fever, Cough, Chest Pain, Leg Swelling Quality: Aching Radiation: No Radiation If cough with SOB: Productive, Green Past Medical History PAST MEDICAL HISTORY: AFIB, Cancer, CVA, DM, GERD, High Lipids, HTN, SC, UTI'S Surgical History: Appendectomy, CABG, Cholecystectomy, Hysterectomy, Pacemaker, PTCA, Thyroidectomy, Tonsillectomy Surgical History (Other): Cataract surgery, thymus surgery CORPORATE DEVELOPMENT ASSOCIATE History: No Pertinent CORPORATE DEVELOPMENT ASSOCIATE History Family History Family History: Reviewed,noncontributory to illness Social History Smoker: Non-Smoker Alcohol: Denies ETOH Use Drugs: Denies Drug Use Lives In: Home Constitutional: reports: fever; denies: chills, diaphoresis, fatigue, malaise, sweats, weakness, others EENTM: denies: blurred vision, double vision, ear bleeding, ear discharge, ear drainage, ear pain, ear ringing, eye pain, eye redness, hearing loss, mouth pain, mouth swelling, nasal discharge, nose bleeding, nose congestion, nose pain, photophobia, tearing, throat pain, throat swelling, voice changes, others Respiratory: reports: cough; denies: hemoptysis, orthopnea, SOB at rest, shortness of breath, SOB with excertion, stridor, wheezing, others Cardiovascular: reports: chest pain; denies: dizzy spells, diaphoresis, Dyspnea on exertion, edema, irregular heart beat, left arm pain, lightheadedness, palpitations, PND, syncope, others Gastrointestinal: denies: abdomen distended, abdominal pain, blood streaked bowels, constipated, diarrhea, dysphagia, difficulty swallowing, hematemesis, melena, nausea, poor appetite, poor fluid intake, rectal bleeding, rectal pain, vomiting, others Genitourinary: denies: abnormal vagina bleeding, burning, dyspareunia, dysuria, flank pain, frequency, hematuria, incontinence, pain, , vagina discharge, urgency, others Neurological: denies: dizziness, fainting, headache, left sided numbness, left sided weakness, numbness, paresthesia, pre-existing deficit, right sided numbness, right sided weakness, seizure, speech problems, tingling, tremors, weakness, others Musculoskeletal: denies: back pain, gout, joint pain, joint swelling, muscle pain, muscle stiffness, neck pain, others Integumetry: denies: bruises, change in color, change in hair/nails, dryness, laceration, lesions, lumps, rash, wounds, others Allergic/Immunocompromised: denies: Difficulty Healing, Frequent Infections, Hives, Itching, others Hematologic/Lymphatic: denies: anemia, blood clots, easy bleeding, easy bruising, swollen glands, others Endocrine: denies: excessive hunger, excessive sweating, excessive thirst, excessive urination, flushing, intolerance to cold, intolerance to heat, unexplained weight gain, unexplained weight loss, others Psychiatric: denies: anxiety, bipolar disorder, depression, hopeless, panic disorder, schizophrenia, sleepless, suicidal, others Physical Exam General Appearance: Moderate Distress HEENT: Normal ENT Inspection, Pharynx Normal, TMs Normal Neck: Full Range of Motion, Non-Tender, Normal, Normal Inspection Respiratory: Chest Non-Tender, Decreased Breath Sounds, No Accessory Muscle Use, Respiratory Distress Cardiovascular: No Edema, No JVD, No Murmur, No Gallop, Other (Pacemaker to the left chest) Breast Exam: Deferred Gastrointestinal: No Organomegaly, Non Tender, No Pulsatile Mass, Normal Bowel Sounds, Soft Genitalia: Deferred Pelvic: Deferred Rectal: Deferred Extremities: No calf tenderness, Normal capillary refill, Pedal edema Musculoskeletal : Apperance: Normal Neurologic: Alert, geriatric nursing assistant II-XII nml as Tested, Motor Weakness, Normal Affect, Normal Mood, No Sensory Deficits Cerebellar Function: Normal Reflexes: Normal Skin: Dry, Normal Color, Warm Lymphatic: No Adenopathy EKG EKG : Pulse Rate (adult): 75 Cardiac Rhythm: Paced Block: None ST: Nonsp Was a procedure done? Was a procedure done?: No Differential Dx Differential Diagnosis: Asthma, Bronchitis, CHF, COPD, Pneumonia X-Ray, Labs, Meds, VS Vital Signs Date Time Temp Pulse Resp B/P (MAP) Pulse Ox O2 Delivery O2 Flow Rate FiO2 12/28/24 18:00 100.1 83 20 137/57 (83) 94 100.1 12/28/24 16:01 75 12/28/24 16:00 88 12/28/24 15:48 100.9 83 20 118/75 (89) 91 100.9 12/28/24 15:48 87 22 92 Nasal Cannula* 2 28 12/28/24 15:13 75 12/28/24 15:10 99.5 69 18 143/68 97 99.5 Lab Test 12/28/24 16:44 12/28/24 15:40 Range/Units Troponin I High Sensitivity 8 6 </=34 ng/L White Blood Count 7.8 4.4-10.8 10^3/uL Red Blood Count 4.65 4.0-5.20 10^6/uL Hemoglobin 13.6 12.2-16.2 g/dL Hematocrit 40.7 36.0-46.0 % Mean Corpuscular Volume 87.6 80.0-100.0 fL Mean Corpuscular Hemoglobin 29.2 28.0-32.0 pg Mean Corpuscular Hemoglobin Concent 33.3 32.0-36.0 g/dL Red Cell Distribution Width 15.4 H 11.8-14.3 % Platelet Count 190 140-450 10^3/uL Mean Platelet Volume 7.7 6.9-10.8 fL Neutrophils (%) (Auto) 55.8 37.0-80.0 % Lymphocytes (%) (Auto) 29.9 10.0-50.0 % Monocytes (%) (Auto) 13.1 H 0.0-12.0 % Eosinophils (%) (Auto) 0.9 0.0-7.0 % Basophils (%) (Auto) 0.3 0.0-2.0 % Neutrophils # (Auto) 4.3 1.6-8.6 10 ^3/uL Lymphocytes # (Auto) 2.3 0.4-5.4 10 ^3/uL Monocytes # (Auto) 1.0 0-1.3 10 ^3/uL Eosinophils # (Auto) 0.1 0-0.8 10 ^3/uL Basophils # (Auto) 0 0-0.2 10 ^3/uL Nucleated Red Blood Cells 0.2 % Sodium Level 142 136-145 mmol/L Potassium Level 3.7 3.5-5.1 mmol/L Chloride Level 105 98-107 mmol/L Carbon Dioxide Level 26 20-31 mmol/L Anion Gap 11 5-15 Blood Urea Nitrogen 14 9-23 mg/dL Creatinine 0.83 0.550-1.02 mg/dL Glomerular Filtration Rate Calc 69 >90 mL/min BUN/Creatinine Ratio 16.9 10.0-20.0 Serum Glucose 100 74-106 mg/dL Lactic Acid Level 1.8 0.4-2.0 mmol/L Calcium Level 9.2 8.7-10.4 mg/dL B-Type Natriuretic Peptide 313.50 0-100 pg/mL Current Medications Medications (Trade) Dose Ordered Sig/Lesly Route Start Time Stop Time Status Last Admin Methylprednisolone Sodium Succinate (Solu Medrol) 125 mg ONCE ONCE IV 12/28/24 15:30 12/28/24 15:31 DC 12/28/24 15:30 IV Hep-Lock was established. Chest XR indicates: 1. Interval development of a interstitial Airspace disease right lower lobe. May represent pneumonia correlate clinically At this time the patient was given Solu-Medrol 125 mg IV push The patient had blood cultures x2 drawn. The patient has a lactic acid of 1.8 After blood cultures, the patient was started on vancomycin and Rocephin The patient's CBC is within normal limits The chemistry panel is within normal limits The patient is being admitted to the hospitalist at this time The patient is being given a breathing treatment of albuterol and Atrovent. Images Reviewed?: Images reviewed and evaluated by me Time of 1ST Reevaluation: 16:01 Reevaluation 1ST: Unchanged Patient Education/Counseling: Diagnosis, Treatment, Prognosis Family Education/Counseling: No Family Present SEPSIS Sepsis Screen Date sepsis recognized/suspect: Dec 28, 2024 Time Sepsis recognized/suspect: 1509 Recent Procedure: No On Antibiotic Therapy: No Respiratory Rate >20: No Heart Rate >90: No Temp<36 C (96.8 F) or >38.3 C: No SBP <90 or MAP <65 mmHG: No New Acute Mental Status Change: No Is the patient on CPAP, BIPAP,: No Physician Orders Urinalysis (12/28/24 15:19) Chest Portable (12/28/24 15:19) Heplock Iv (12/28/24 15:19) Pulse Oximetry (12/28/24 15:19) Oxygen (12/28/24 15:19) Manager Policy (12/28/24 15:19) Blood Pressure (12/28/24 15:19) Blood Culture (12/28/24 15:19) Troponin-I Hs (12/28/24 18:19) Med Neb Initial Treatment (12/28/24 18:43) Atrovent (12/28/24 18:45) Albuterol Medneb (Ventolin Medneb) (12/28/24 18:45) Vancomycin (12/28/24 18:45) Ceftriaxone Ivpb Rocephin (12/28/24 18:45) Vital Signs Date Time Temp Pulse Resp B/P (MAP) Pulse Ox O2 Delivery O2 Flow Rate FiO2 12/28/24 18:00 100.1 83 20 137/57 (83) 94 100.1 12/28/24 16:01 75 12/28/24 16:00 88 12/28/24 15:48 100.9 83 20 118/75 (89) 91 100.9 12/28/24 15:48 87 22 92 Nasal Cannula* 2 28 12/28/24 15:13 75 12/28/24 15:10 99.5 69 18 143/68 97 99.5 Laboratory Tests Test 12/28/24 15:40 Lactic Acid Level 1.8 mmol/L (0.4-2.0) White Blood Count 7.8 10^3/uL (4.4-10.8) Medications Medications Dose Ordered Sig/Lesly Route Start Time Stop Time Status Last Admin Dose Admin Methylprednisolone Sodium Succinate 125 mg ONCE ONCE IV 12/28/24 15:30 12/28/24 15:31 DC 12/28/24 15:30 Departure 1 Departure Time of Disposition: 18:54 Impression: Primary Impression: Myasthenia gravis Additional Impression: Right lower lobe pneumonia Qualified Codes: J18.9 - Pneumonia, unspecified organism Disposition: ADMITTED INPATIENT Admit to: Tele Condition: Fair Critical Care Note Critical Care Time?: Yes (45 min-critical care time only) Stability Stability form required: Yes Unstable for transfer: Telemetry monitoring (Telemetry monitoring required), ED Physician Assesment (Clinical assesment) Heart Score Heart Score: Heart Score Response (Comments) Value History N/A 0 EKG N/A 0 Age N/A 0 Risk Factors N/A 0 Troponin N/A 0 Total 0 I personally scribed for MEEK SALGUERO MD ([email or web address]) on 12/28/24 at 16:17. Electronically submitted by Aureliano Aguilar ([email or web address]). MEEK SALGUERO MD Dec 28, 2024 16:01
[2024-12-28 16:10] LABS: Anion Gap 11 (5-15); Calcium 9.2 mg/dL (8.7-10.4); Carbon Dioxide 26 mmol/L (20-31)
[2024-12-28 16:15] LABS: BUN/Creatinine Ratio 16.9 (10.0-20.0); Blood Urea Nitrogen 14 mg/dL (9-23); Glucose 100 mg/dL (74-106)
[2024-12-28 16:16] LABS: Chloride 105 mmol/L (98-107); Potassium 3.7 mmol/L (3.5-5.1); Sodium 142 mmol/L (136-145)
[2024-12-28] MEDS: VANCOMYCIN 1GM/250ML KIT 250 ML IV ONE (18:45)
[2024-12-28] MEDS: ALBUTEROL SULF 2.5 MG/0.5ML(0.5%) NEB SOLN HHN ONE (19:04)
[2024-12-28] MEDS: IPRATROPIUM BROM 0.5 MG/2.5ML INH SOL HHN ONE (19:04)
[2024-12-28] MEDS: ACETAMINOPHEN 325 MG TAB PO ONE (19:36)
[2024-12-28 19:40] LABS: Base Excess -1.5 mmol/L (-2.0-3.0)
[2024-12-28] MEDS: FUROSEMIDE 40 MG/4 ML VIAL IV ONE (21:00)
[2024-12-28] MEDS ORDERED: VANCOMYCIN PER PHARMACY 0 MG IV SCH (21:00)
--- NOTE | 2024-12-28 21:29 | DVHHPRES ---
History of Present Illness Resident Creating Document: DENYS BARNEY History of Present Illness Patient is a 84-year-old female with past medical history of MG, AFIB, uterine cancer, CVA, DM, GERD, High Lipids, HTN, MN, UTI, presented to [facility] ED with complaint of chest pain and shortness breath. Patient states that 4 days ago, she developed a severe cough with green sputum and associated chest pain. The chest pain is described as a constant, aching pain, substernal, rated 8/10 in intensity. Coughing exacerbates the chest pain, which radiates to her back with no relieving factors. The symptoms are associated with shortness of breath and fever. She reports coughing up green and black-colored sputum today morning. She has been taking Tylenol and cough syrup for cough and chest pain, and using a nebulizer for shortness of breath, but reports that these have not been effective. The patient went to the local urgent care at [place] and they went ahead and called 911. The patient's oxygen saturation at the clinic was 87% on room air. The patient was then placed on 2 L nasal cannula and transported to our facility. On evaluation in the ED, patient is febrile, tachycardic, tachypnea, hypotensive (125/49 mmHg), with an oxygen saturation of 94% on 2 L nasal cannula. Initial labs show troponin 6, lactic acid 1.8 and BNP 313.50. Chest X-ray shows interval development of a interstitial airspace disease right lower lobe. The patient was placed Gonsalves catheter, started on breathing treatment, IV antibiotics and IV fluids. Patient is admitted for further evaluation and management. Past Medical History MG, AFIB, uterine cancer, CVA, DM, GERD, High Lipids, HTN, MN, UTI Past Surgical History Appendectomy, CABG, Cholecystectomy, Hysterectomy, Pacemaker, PTCA, Thyroidectomy, Tonsillectomy, Cataract surgery, thymus surgery Family History: None Past Social History Smoke: > 25 years, 1.5 pack a day. quick 35 years ago. Alcohol: Denies. Drugs: Denies. Review of Systems Review of Systems Eyes: No Pain, No Vision change, No Conjunctivae inflammation, No Eyelid inflammation, No Other, No Redness ENT: No Ear pain, No Ear discharge, No Nose pain, No Nose discharge, No Nose congestion, No Mouth pain, No Mouth swelling, No Throat pain, No Throat swelling, No Other Cardiovascular: Chest Pain, No Palpitations, No Orthopnea, No Paroxysmal No Dyspnea, Edema, No Lt Headedness, No Other Respiratory: Cough, No Dry, Shortness of breath, No SOB with exertion, No Wheezing, No Hemoptysis, No Pleuritic Pain, Sputum, No Other Gastrointestinal: No Nausea, No Vomiting, No Abdominal Pain, No Diarrhea, No Constipation, No Melena, No Hematochezia, No Other Genitourinary: No Dysuria, No Frequency, Urinary Incontinence, No Hematuria, No Retention, No Other Musculoskeletal: No other, No neck pain, No shoulder pain, No arm pain, back pain, No hand pain, No leg pain, No foot pain Skin: No Rash, No Lesions, No Jaundice, No Bruising, No Other Allergies: Coded Allergies: Carisoprodol (Verified Allergy, Unknown, 12/28/24) Ciprofloxacin (Verified Allergy, Unknown, 12/28/24) Codeine (Verified Allergy, Unknown, 12/28/24) Diazepam (Verified Allergy, Unknown, 12/28/24) Hydrochlorothiazide/Triamterene (Verified Allergy, Unknown, 12/28/24) Iodine (Verified Allergy, Unknown, 12/28/24) NSAIDs (Verified Allergy, Unknown, 12/28/24) Statins (Verified Allergy, Unknown, 12/28/24) Sulfa Antibiotics (Verified Allergy, Unknown, 09/04/22) Trazodone (Verified Allergy, Unknown, 12/28/24) Exam Vital Signs Vital Signs Date Time Temp Pulse Resp B/P (MAP) Pulse Ox O2 Delivery O2 Flow Rate FiO2 12/28/24 20:00 99.3 101 17 125/49 (74) 95 99.3 12/28/24 19:05 Nasal Cannula* 4 36 Exam General Appearance: Cooperative. Well developed. Well nourished. NAD Head Exam: Normal inspection Neck Exam: Normal inspection. Non-tender. Normal alignment Pulmonary/Respiratory: Chest non-tender. decreased bilateral breath sounds, bilateral crackles, no wheezing. Cardiovascular/Chest: Regular rate and rhythm. No murmurs. No JVD. Peripheral Pulses: 2+ Radial (R). 2+ Radial (L). 2+ Pedal (R). 2+ Pedal (L) Abdominal Exam: Normal bowel sounds. Soft. normal abdomen, no visible veins, Nontender. No hepatospenomegaly. No masses Genitourinary Exam: Gonsalves catheter in place, draining clear yellow urine. No signs of urethral irritation or discharge. Ankle Exam: Negative ankle edema Lower extremities: Lower extremity +2 pitting edema Neuro/Mental Status: A&O x4. Coherent. Thoughts/Psych: Normal thought pattern. Appropriate mood and affect. Good judgement and insight Skin Exam: Normal inspection. Normal color. Warm. Dry Labs/Xrays Labs Test 12/28/24 19:26 12/28/24 18:50 12/28/24 15:40 Range/Units Blood Gas Specimen Type Arterial Blood Gas Sample Site Left radial Blood Gas Patient Temperature 37.0 Arterial Blood Date Drawn [id number] Arterial Blood pH 7.460 H 7.350-7.450 Arterial Blood Partial Pressure CO2 30.7 L 32.0-45.0 mmHg Arterial Blood Partial Pressure O2 87.6 83.0-108.0 mmHg Arterial Blood HCO3 21.3 21.0-28.0 mmol/L Arterial Blood Oxygen Saturation 96.1 94.0-98.0 % Arterial Blood Base Excess -1.5 -2.0-3.0 mmol/L Arterial Blood Oxyhemoglobin 94.8 94.0-98.0 % Arterial Blood Carboxyhemoglobin 1.1 0.5-1.5 % Arterial Blood Methemoglobin 0.3 0.0-1.5 % Kevin Test Modified Blood Gas Total Hemoglobin 13.30 12.0-16.0 g/dL Blood Gas Modality Nasal cannula FiO2 % 36.0 Troponin I High Sensitivity 8 </=34 ng/L White Blood Count 7.8 4.4-10.8 10^3/uL Red Blood Count 4.65 4.0-5.20 10^6/uL Hemoglobin 13.6 12.2-16.2 g/dL Hematocrit 40.7 36.0-46.0 % Mean Corpuscular Volume 87.6 80.0-100.0 fL Mean Corpuscular Hemoglobin 29.2 28.0-32.0 pg Mean Corpuscular Hemoglobin Concent 33.3 32.0-36.0 g/dL Red Cell Distribution Width 15.4 H 11.8-14.3 % Platelet Count 190 140-450 10^3/uL Mean Platelet Volume 7.7 6.9-10.8 fL Neutrophils (%) (Auto) 55.8 37.0-80.0 % Lymphocytes (%) (Auto) 29.9 10.0-50.0 % Monocytes (%) (Auto) 13.1 H 0.0-12.0 % Eosinophils (%) (Auto) 0.9 0.0-7.0 % Basophils (%) (Auto) 0.3 0.0-2.0 % Neutrophils # (Auto) 4.3 1.6-8.6 10 ^3/uL Lymphocytes # (Auto) 2.3 0.4-5.4 10 ^3/uL Monocytes # (Auto) 1.0 0-1.3 10 ^3/uL Eosinophils # (Auto) 0.1 0-0.8 10 ^3/uL Basophils # (Auto) 0 0-0.2 10 ^3/uL Nucleated Red Blood Cells 0.2 % Sodium Level 142 136-145 mmol/L Potassium Level 3.7 3.5-5.1 mmol/L Chloride Level 105 98-107 mmol/L Carbon Dioxide Level 26 20-31 mmol/L Anion Gap 11 5-15 Blood Urea Nitrogen 14 9-23 mg/dL Creatinine 0.83 0.550-1.02 mg/dL Glomerular Filtration Rate Calc 69 >90 mL/min BUN/Creatinine Ratio 16.9 10.0-20.0 Serum Glucose 100 74-106 mg/dL Lactic Acid Level 1.8 0.4-2.0 mmol/L Calcium Level 9.2 8.7-10.4 mg/dL B-Type Natriuretic Peptide 313.50 0-100 pg/mL SEPSIS Sepsis Screen Date sepsis recognized/suspect: Dec 28, 2024 Time Sepsis recognized/suspect: 1533 Recent Procedure: No On Antibiotic Therapy: No Respiratory Rate >20: Yes Heart Rate >90: No Temp<36 C (96.8 F) or >38.3 C: No SBP <90 or MAP <65 mmHG: No New Acute Mental Status Change: No Is the patient on CPAP, BIPAP,: No Physician Orders Urinalysis (12/28/24 15:19) Chest Portable (12/28/24 15:19) Heplock Iv (12/28/24 15:19) Pulse Oximetry (12/28/24 15:19) Oxygen (12/28/24 15:19) Storeroom Keeper (12/28/24 15:19) Blood Pressure (12/28/24 15:19) Blood Culture (12/28/24 15:19) Med Neb Initial Treatment (12/28/24 18:43) Abg W/ Co-Ox (12/28/24 19:10) Admit (12/28/24 20:51) Allergies (12/28/24 20:51) Code Status (12/28/24:51) Sodium Chloride Lock (Saline Lock Ns) (12/28/24 22:00) Oxygen Per Hour (12/28/24 20:51) Hydrocodone-Acet 5/325mg Tab ([place] 5/32 (12/28/24 21:00) Complete Blood Count (12/29/24 04:00) Comprehensive Metabolic Panel (12/29/24 04:00) Cardiac Diet-2gna,Lofat,Lochol (12/29/24 Breakfast) Condition: Fair (12/28/24 20:51) Oxygen By Nasal Cannula (12/28/24 20:51) Stat Ekg For Chest Pain (12/28/24 20:51) Notify Md Of Changes From Base (12/28/24 20:51) Front Office Clerk For 24 Hours (12/28/24 20:51) Emergency Dysrhythmia Protocol (12/28/24 20:51) Rhythm Strips Once Every Shift (12/28/24 20:51) Levalbuterol Hcl (Xopenex Medneb) (12/28/24 22:00) Ipratropium Medneb (Atrovent Medneb) (12/28/24 22:00) Med Neb Initial Treatment (12/28/24 20:51) Respiratory Culture W/ Gs (12/28/24 20:51) Magnesium (12/28/24 20:51) Hepatic Panel (12/28/24 20:51) Thyroid Stimulating Hormone (12/28/24 20:51) Lactic Acid W/ Reflex Order (12/29/24 04:00) Covid19 Antigen Tayler (12/28/24 ) Rapid Influenza A&B (12/28/24 20:51) Echo 2d Mode Cardiac Dop (12/28/24 20:51) Vancomycin (12/28/24 21:00) Clopidogrel Bisulfate (Plavix) (12/29/24 10:00) Pantoprazole Tablet (Protonix Tablet) (12/28/24 22:00) PTPTT (12/28/24 20:51) Lactic Acid W/ Reflex Order (12/28/24 20:51) Warfarin Per Rx Protocol (Coumadin Per R (12/28/24 21:00) Cefepime 1 Gm (12/28/24 22:00) Furosemide Injection (Lasix Injection) (12/28/24 21:00) Maintain Fluid Restrictions QSHIFT (12/28/24 20:51) Strict I & O QSHIFT (12/28/24 20:51) Vital Signs Date Time Temp Pulse Resp B/P (MAP) Pulse Ox O2 Delivery O2 Flow Rate FiO2 12/28/24 20:00 99.3 101 17 125/49 (74) 95 99.3 12/28/24 19:05 21 94 Nasal Cannula* 4 36 12/28/24 18:00 100.1 83 20 137/57 (83) 94 100.1 12/28/24 16:01 75 12/28/24 16:00 88 12/28/24 15:48 100.9 83 20 118/75 (89) 91 100.9 12/28/24 15:48 87 22 92 Nasal Cannula* 2 28 12/28/24 15:13 75 12/28/24 15:10 99.5 69 18 143/68 97 99.5 Laboratory Tests Test 12/28/24 15:40 Lactic Acid Level 1.8 mmol/L (0.4-2.0) White Blood Count 7.8 10^3/uL (4.4-10.8) Medications Medications Dose Ordered Sig/Lesly Route Start Time Stop Time Status Last Admin Dose Admin Acetaminophen 325 mg ONCE ONCE PO 12/28/24 19:30 12/28/24 19:31 DC 12/28/24 19:36 325 MG Albuterol 10 mg ONCE ONCE HHN 12/28/24 18:45 12/28/24 18:46 DC 12/28/24 19:04 10 MG Ceftriaxone Sodium 50 ml @ 100 mls/hr ONCE ONCE IV 12/28/24 18:45 12/28/24 19:14 DC 12/28/24 18:52 100 MLS/HR Ipratropium [place] 1 mg ONCE ONCE N 12/28/24 18:45 12/28/24 18:46 DC 12/28/24 19:04 1 MG Methylprednisolone Sodium Succinate 125 mg ONCE ONCE IV 12/28/24 15:30 12/28/24 15:31 DC 12/28/24 15:30 125 MG Vancomycin HCl 250 ml @ 250 mls/hr ONCE ONCE IV 12/28/24 18:45 12/28/24 19:44 DC 12/28/24 18:45 250 MLS/HR Assessment/Plan Assessment/Plan Sepsis due to pneumonia Right lower lobe pneumonia likely due to Gram +/- bacteria acute on chronic Diastolic CHF exacerbation Respiratory alkalosis, partially compensated Lactic acid: 1.8 > 2.9 > 3.5 BNP 313.50 Chest X-ray: Interval development of a interstitial Airspace disease right lower lobe. May represent pneumonia correlate clinically Echocardiogram ordered Echocardiogram (09/15/19): Left ventricular systolic function appears to be preserved. EF is about 60% with normal RV function. COVID 19 Antigen tayler -tive Rapid influenza A & B -tive Blood culture TSH 0.68 IV NS 250 MLS/HR ONE Lasix 40 MG IV once (patient refused, educated on risks and benefit) Cefepime 1 GM IV q8h Levalbuterol 1.25 MG NEB q4h Ipratropium Medneb 0.5 MG NEB q3h Vancomycin IV per pharmacy pain management with [place] 1 TAB PO q4h PRN Myasthenia gravis Severe urinary incontinence like due to above Gonsalves catheter Pyridostigmine 60 mg PO q6h History of AFib on Warfarin per pharmacy PT/PTT, INR elevated History of CVA On Plavix Diet: Cardiac PUD prophylaxis: protonix 40mg Goals of care: Full code, discussed for >30 minutes on 12/28/24 Plan discussed with patient Plan discussed with Dr. Mckay Plan discussed with: Patient My Orders Orders - DENYS BARNEY Procedure Category Date Status Time Admit ADMIT 12/28/24 Verified 20:51 Allergies ROSENDO 12/28/24 Verified 20:51 Code Status CODE 12/28/24 Verified 20:51 Sodium Chloride Lock PHA 12/28/24 Verified (Saline Lock Ns) 22:00 Oxygen Per Hour RT 12/28/24 Verified 20:51 Hydrocodone-Acet PHA 12/28/24 Verified 5/325mg Tab ([place] 21:00 Complete Blood Count LAB 12/29/24 Verified 04:00 Comprehensive LAB 12/29/24 Verified Metabolic Panel 04:00 Cardiac DIET 12/29/24 Verified Diet-2gna,Lofat,Lochol Breakfast Condition: Fair [facility] 12/28/24 Verified 20:51 Oxygen By Nasal RT 12/28/24 Verified Cannula 20:51 Stat Ekg For Chest ROSENDO 12/28/24 Verified Pain 20:51 Notify Md Of Changes [facility] 12/28/24 Verified From Base 20:51 Front Office Clerk For [facility] 12/28/24 Verified 24 Hours 20:51 Emergency Dysrhythmia [facility] 12/28/24 Verified Protocol 20:51 Rhythm Strips Once [facility] 12/28/24 Verified Every Shift 20:51 Levalbuterol Hcl PHA 12/28/24 Verified (Xopenex Medneb) 22:00 Ipratropium Medneb PHA 12/28/24 Verified (Atrovent Medneb) 22:00 Med Neb Initial RT 12/28/24 Verified Treatment 20:51 Respiratory Culture RUDY 12/28/24 Verified W/ Gs 20:51 Magnesium LAB 12/28/24 Verified 20:51 Hepatic Panel LAB 12/28/24 Verified 20:51 Thyroid Stimulating LAB 12/28/24 Verified Hormone 20:51 Lactic Acid W/ Reflex LAB 12/29/24 Verified Order 04:00 Covid19 Antigen [place]ler LAB 12/28/24 Verified Rapid Influenza A&B LAB 12/28/24 Verified 20:51 Echo 2d Mode Cardiac US 12/28/24 Verified DOP 20:51 Vancomycin PHA 12/28/24 Verified 21:00 Clopidogrel Bisulfate PHA 12/29/24 Verified (Plavix) 10:00 Pantoprazole Tablet PHA 12/28/24 Verified (Protonix Tablet) 22:00 PTPTT LAB 12/28/24 Verified 20:51 Lactic Acid W/ Reflex LAB 12/28/24 Verified Order 20:51 Warfarin Per Rx PHA 12/28/24 Verified Protocol (Coumadin 21:00 Cefepime 1 Gm PHA 12/28/24 Verified 22:00 Furosemide Injection PHA 12/28/24 Verified (Lasix Injection) 21:00 Maintain Fluid ROSENDO 12/28/24 Verified Restrictions 20:51 Strict I & O [facility] 12/28/24 Verified 20:51 Date of Service: Dec 28, 2024 Billing Provider: PANCHO MCKAY MD Common Visit Codes: [id number] INP/OBS CARE (HIGH) Secondary Visit Codes: [id number] CARE PLAN 30 MINUTES DENYS BARNEY RESIDENT Dec 28, 2024 21:29 MARY TAYLOR RESIDENT Dec 29, 2024 06:05
[2024-12-28 21:36] VITALS: BP 125/49; PULSE 101; RESP 17; TEMP 99.3; O2SAT 95
[2024-12-28 21:56] LABS: Albumin 4.6 g/dL (3.2-4.8); Alkaline Phosphatase 70.0 U/L (46-116); Magnesium 2.0 mg/dL (1.6-2.6); Total Protein 8.1 g/dL (5.7-8.2)
[2024-12-28 21:57] LABS: Alanine Aminotransferase 88.0 U/L (7-40); Bilirubin, Total 1.4 mg/dL (0.2-1.0)
[2024-12-28 21:59] VITALS: O2SAT 94
[2024-12-28 22:09] LABS: COVID19 ANTIGEN SOFIA FIA NEGATIVE (NEGATIVE)
[2024-12-28] MEDS: SODIUM CHLOR 0.9% PF (SALINE LOCK) 10ML VIAL/SYR IV SCH (22:10)
[2024-12-28] MEDS: PANTOPRAZOLE 40 MG TAB PO SCH (22:16)
[2024-12-28] MEDS: CEFEPIME 1GM/50ML 50 ML IV SCH (22:16)
[2024-12-28 22:27] LABS: INR 2.94 (0.9-1.15); Partial Thromboplastin Time 47.8 SEC (24.5-34.5); Prothrombin Time 28.0 sec (9.3-11.8)
[2024-12-28] MEDS: LEVALBUTEROL HCL 1.25 MG/3 ML NEB NEB SCH (22:27)
[2024-12-28] MEDS: IPRATROPIUM BROM 0.5 MG/2.5ML INH SOL NEB SCH (22:27)
[2024-12-28 22:28] VITALS: PULSE 89; RESP 14; O2SAT 91
[2024-12-28 22:28] LABS: Bilirubin, Direct 0.6 mg/dL (<0.3)
[2024-12-28 22:29] LABS: Lactic Acid w/Reflex 2.9 mmol/L (0.4-2.0)
[2024-12-28 22:36] VITALS: PULSE 89; RESP 22; O2SAT 98
[2024-12-29] VITALS (20 sets, daily range): BP systolic 130–149; BP diastolic 62–79; PULSE 74–96; RESP 14–20; TEMP 96.8–98.1; O2SAT 89–100
[2024-12-29] MEDS: SODIUM CHLORIDE 0.9% 250 ML IV ONE (00:45)
[2024-12-29] MEDS: HYDROcodone-ACET 5/325MG TAB PO PRN (04:08)
[2024-12-29] MEDS: FUROSEMIDE 40 MG/4 ML VIAL IV ONE (06:33)
[2024-12-29 06:51] LABS: Hematocrit 37.3 % (36.0-46.0); Hemoglobin 12.3 g/dL (12.2-16.2); Mean Corpuscular Hemoglobin 28.8 pg (28.0-32.0); Mean Corpuscular Volume 87.0 fL (80.0-100.0); Nucleated Red Blood Cells % 0.1 %
[2024-12-29 07:02] LABS: Lactic Acid w/Reflex 2.4 mmol/L (0.4-2.0)
[2024-12-29 07:22] LABS: Albumin 3.8 g/dL (3.2-4.8); Alkaline Phosphatase 57 U/L (46-116); Anion Gap 11 (5-15); BUN/Creatinine Ratio 14.5 (10.0-20.0); Bilirubin, Total 0.9 mg/dL (0.2-1.0); Blood Urea Nitrogen 11 mg/dL (9-23); Calcium 8.8 mg/dL (8.7-10.4); Carbon Dioxide 25 mmol/L (20-31); Chloride 107 mmol/L (98-107); Potassium 3.7 mmol/L (3.5-5.1); Sodium 143 mmol/L (136-145); Total Protein 6.8 g/dL (5.7-8.2)
[2024-12-29 07:24] LABS: Alanine Aminotransferase 98 U/L (7-40); Glucose 163 mg/dL (74-106)
[2024-12-29] MEDS: CLOPIDOGREL BISULFATE 75 MG TAB PO SCH (10:39)
--- NOTE | 2024-12-29 11:41 | DVHPN2 ---
Progress Note Date Seen: Dec 29, 2024 Medical Necessity Reason Pt with a Central, PICC or Fol: No Subjective Patient reports: No new complaints Review of Systems: HEENT:Normal, CVS:Normal, RESPIRATORY:Normal, GI:Normal, :Normal, MSK:Normal, NEURO:Normal Objective vital signs Vital Sign Date Time Temp Pulse Resp B/P (MAP) Pulse Ox O2 Delivery O2 Flow Rate FiO2 12/29/24 11: 85 18 100 12/29/24 11:26 Nasal Cannula 2.0 12/29/24 11:26 28 12/29/24 09:00 96.8 134/64 (87) 96.8 Total Intake and Output 12/28/24 12/28/24 12/29/24 15:00 23:00 07:00 Intake Total 300 ml 1050 ml Output Total 260 ml Balance 300 ml 790 ml medications Current Medications Medications Dose Ordered Sig/Lesly Route Start Time Stop Time Status Last Admin Dose Admin Sodium Chloride 10 ml Q8HR IV 12/28/24 22:00 12/29/24 06:33 10 ML Acetaminophen/ Hydrocodone Bitart 1 tab Q4HP PRN PO 12/28/24 21:00 12/29/24 04:08 1 TAB Levalbuterol HCl 1.25 mg Q4HWA [facility] 12/28/24 22:00 12/29/24 11:20 1.25 MG Ipratropium [place] 0.5 mg Q4HWA [facility] 12/28/24 22:00 12/29/24 11:20 0.5 MG Vancomycin HCl 0 ml @ 0 mls/hr PER PHARMACY IV 12/28/24 21:00 Clopidogrel Bisulfate 75 mg DAILY PO 12/29/24 10:00 12/29/24 10:39 75 MG Pantoprazole Sodium 40 mg BID PO 12/28/24 22:00 12/29/24 10:39 40 MG Warfarin Sodium RX PROTOCOL PER PHARMACY PO 12/28/24 21:00 Cefepime HCl 50 ml @ 12.5 mls/hr Q8HR IV 12/28/24 22:00 12/29/24 06:33 12.5 MLS/HR Pyridostigmine [place] 60 mg Q6HR PO 12/29/24 06:00 Vancomycin HCl 100 ml @ 200 mls/hr Q12H IV 12/29/24 12:00 Examination: GENERAL:Normal, HEENT:Normal, NECK:Normal, LUNGS:Normal, LUNGS:Abnormal (on oxygen), CVS:Normal, ABDOMEN:Normal, MSK:Normal, MSK:Abnormal (edema+), SKIN:Normal, NEURO:Normal, :Normal laboratory and microbiology Laboratory Tests 12/29/24 05:26 Test 12/29/24 05:26 Range/Units Serum Glucose 163 H 74-106 mg/dL Problem List/Assessment/Plan Problem List/Assessment/Plan #1 acute resp failure: cont oxygen #2 right pneumonia- gram positive/neg with sepsis: iv antibiotics #3 myasthenia gravis s/p thymectomy: cont meds #4 a fib with secondary hypercoagulable state: cont meds, coumadin #5 copd with exacerbation: cont meds, bronchodilators #6 s/p pacer #7 ? acute systolic/diastolic heart failure: echo #8 transaminitis #9 htn #10 cad s/p stent advance care planning- full code- time spent 18 mins Plan discussed with: Patient My Orders My Orders Orders - JENNIFER DANIELSON MD Procedure Category Date Status Time Ceftriaxone Ivpb PHA 12/30/24 Verified Rocephin 09:00 Date of Service: Dec 29, 2024 Billing Provider: JENNIFER DANIELSON MD Common Visit Codes: [id number] INP/OBS CARE(HIGH) Secondary Visit Codes: [id number] CARE PLAN 30 MINUTES JENNIFER DANIELSON MD Dec 29, 2024 11:41
[2024-12-29 11:48] LABS: Urine Protein, UAD Negative (Negative)
[2024-12-29 11:53] LABS: INR 3.09 (0.9-1.15); Partial Thromboplastin Time 48.2 SEC (24.5-34.5); Prothrombin Time 29.3 sec (9.3-11.8)
[2024-12-29] MEDS: VANCOMYCIN 500mg/100mL 100 ML IV SCH (14:34)
[2024-12-29] MEDS: THROAT LOZENGES(CEPASTAT) MT PRN (18:10)
--- NOTE | 2024-12-29 18:40 | DVHSR ---
APPROVED REPORT EXAM: Two-dimensional and M-mode echocardiogram with Doppler and color Doppler. Blood Pressure: 149/70 mmHg INDICATION Chest Pain RISK FACTORS Height: 5'0, Weight: 130 DIMENSIONS LVDd4.6 (3.8-5.7cm)LA (2D)6.2 (1.9-4.0cm)Aortic Root2.0 (2.0-3.7cm) LVDs2.7 (2.5-4.0cm)LA (MM) (1.9-4.0cm)Aortic Cusp Exc0.7 (1.5-2.0cm) EF (%) 72.0 (55-70%)Rt. Atrium4.3 (1.9-4.0cm)Asc. Aorta cm IVSd1.8 (0.7-1.1cm)RV (D) (1.8-2.4cm) PWd1.4 (0.7-1.1cm) Mitral Valve MitralMitral Stenosis E wavem/sMV Mean GR.11mmHg A wavem/sMV Peak GR.18mmHg E/A ratio0.02D MVAcm2 DECEL [employer] 1/2 [id number] IVRTmsDop MVA2.33cm2 Aortic Valve Aortic ValveAortic Stenosis LVOT Diameter1.7 (1.8-2.4cm)Doppler AVAcm2 Pulmonic Valve V20.98m/s Tricuspid Valve TR Velocity2.72m/s [id number] Other Information Quality : Technically LimitedRhythm : Technically limited study due to body habitus. Conclusion MODERATE DEGREE LVH AND MODERATE DEGREE LV DIASTOLIC DYSFUNCTION LV EF IS 70% MODERATELY DILATED LA MODERATELY DILATED RV AND RA VERY HEAVILY CALCIFIED MITRAL LEAFLETS HEAVILY CALCFIED AORTIC LEAFLETS MILD PULMONARY HYPERTENSION RVSP IS 38 MM OF HG NO EFFUSION
[2024-12-29] MEDS: FLECAINIDE ACETATE 50 MG TAB PO SCH (22:41)
[2024-12-29] MEDS: MIRTAZAPINE 30 MG TAB PO SCH (22:41)
[2024-12-30] VITALS (18 sets, daily range): BP systolic 119–165; BP diastolic 55–69; PULSE 59–104; RESP 16–24; TEMP 97.1–98.4; O2SAT 90–100
[2024-12-30] MEDS: ACETAMINOPHEN 325 MG TAB PO ONE (02:00)
--- NOTE | 2024-12-30 05:59 | DVH ---
CHEST RADIOGRAPH Indication: right pneumonia Technique: Single frontal view of the chest was obtained COMPARISON: XY CHEST PORTABLE on DOS: 12/28/24, XY CHEST PORTABLE on DOS: 07/21/24, XY CHEST PORTABLE on DOS: 12/19/23, XY CHEST PORTABLE on DOS: 06/24/23, XY CHEST PORTABLE on DOS: 09/04/22 FINDINGS: Lines and Tubes: Left chest wall pacemaker. Lungs: Increased multifocal airspace disease. Pleura: No effusion. No pneumothorax. Cardiomediastinal contours: Cardiomegaly. Bones: Unremarkable IMPRESSION: Increased multifocal airspace disease.
[2024-12-30 06:30] LABS: Hematocrit 39.0 % (36.0-46.0); Hemoglobin 12.9 g/dL (12.2-16.2); Mean Corpuscular Hemoglobin 28.7 pg (28.0-32.0); Mean Corpuscular Volume 87.0 fL (80.0-100.0); Nucleated Red Blood Cells % 0.1 %
[2024-12-30 06:43] LABS: Albumin 3.8 g/dL (3.2-4.8); Alkaline Phosphatase 60 U/L (46-116); Anion Gap 11 (5-15); BUN/Creatinine Ratio 12.0 (10.0-20.0); Blood Urea Nitrogen 10 mg/dL (9-23); Calcium 9.0 mg/dL (8.7-10.4); Carbon Dioxide 26 mmol/L (20-31); Chloride 105 mmol/L (98-107); Sodium 142 mmol/L (136-145); Total Protein 6.9 g/dL (5.7-8.2)
[2024-12-30 06:44] LABS: Bilirubin, Total 1.2 mg/dL (0.2-1.0)
[2024-12-30 06:52] LABS: Alanine Aminotransferase 106 U/L (7-40); Glucose 127 mg/dL (74-106); Potassium 3.3 mmol/L (3.5-5.1)
[2024-12-30 06:57] LABS: INR 3.22 (0.9-1.15); Partial Thromboplastin Time 43.3 SEC (24.5-34.5); Prothrombin Time 30.4 sec (9.3-11.8)
--- NOTE | 2024-12-30 11:12 | DVHPN2 ---
Progress Note Date Seen: Dec 30, 2024 Medical Necessity Reason Pt with a Central, PICC or Fol: No Subjective Patient reports: No new complaints Review of Systems: HEENT:Normal, CVS:Normal, RESPIRATORY:Normal, GI:Normal, :Normal, MSK:Normal, NEURO:Normal Objective vital signs Vital Sign Date Time Temp Pulse Resp B/P (MAP) Pulse Ox O2 Delivery O2 Flow Rate FiO2 12/30/24 10:12 64 20 100 12/30/24 09:00 98.2 149/66 (93) 98.2 12/30/24 06:20 Nasal Cannula 4.0 12/30/24 06:20 36 Total Intake and Output 12/29/24 12/29/24 12/30/24 15:00 23:00 07:00 Intake Total 600 ml 600 ml Output Total 2100 ml 400 ml Balance -1500 ml 200 ml medications Current Medications Medications Dose Ordered Sig/Lesly Route Start Time Stop Time Status Last Admin Dose Admin Sodium Chloride 10 ml Q8HR IV 12/28/24 22:00 12/30/24 06:28 10 ML Acetaminophen/ Hydrocodone Bitart 1 tab Q4HP PRN PO 12/28/24 21:00 12/30/24 00:17 1 TAB Levalbuterol HCl 1.25 mg Q4HWA [facility] 12/28/24 22:00 12/30/24 09:59 1.25 MG Ipratropium [place] 0.5 mg Q4HWA [facility] 12/28/24 22:00 12/30/24 10:00 0.5 MG Vancomycin HCl 0 ml @ 0 mls/hr PER PHARMACY IV 12/28/24 21:00 Clopidogrel Bisulfate 75 mg DAILY PO 12/29/24 10:00 12/30/24 08:42 75 MG Pantoprazole Sodium 40 mg BID PO 12/28/24 22:00 12/30/24 08:42 40 MG Warfarin Sodium RX PROTOCOL PER PHARMACY PO 12/28/24 21:00 Pyridostigmine [place] 60 mg Q6HR PO 12/29/24 06:00 12/30/24 06:28 60 MG Vancomycin HCl 100 ml @ 200 mls/hr Q12H IV 12/29/24 12:00 12/30/24 00:10 200 MLS/HR Ceftriaxone Sodium 50 ml @ 100 mls/hr DAILY@09 IV 12/30/24 09:00 12/30/24 08:42 100 MLS/HR Flecainide Acetate 50 mg Q12HR PO 12/29/24 22:00 12/30/24 08:43 50 MG Mirtazapine 15 mg HS PO 12/29/24 22:00 12/29/24 22:41 15 MG Throat Lozenges 1 yuli Q2HP PRN MT 12/29/24 16:30 12/30/24 06:29 1 YULI Examination: GENERAL:Normal, HEENT:Normal, NECK:Normal, LUNGS:Normal, LUNGS:Abnormal (on oxygen), CVS:Normal, ABDOMEN:Normal, MSK:Normal, MSK:Abnormal (edema++), SKIN:Normal, NEURO:Normal, :Normal laboratory and microbiology Laboratory Tests 12/30/24 05:47 Test 12/30/24 05:47 Range/Units Serum Glucose 127 H 74-106 mg/dL Microbiology Date/Time Source Procedure Growth Status 12/29/24 11:52 Sputum Gram Stain - Final Resulted 12/29/24 11:52 Sputum Respiratory Culture - Preliminary Resulted 12/28/24 16:44 Blood Blood Culture - Preliminary NO GROWTH AFTER 24 HOURS OF INCUBATION. Resulted Problem List/Assessment/Plan Problem List/Assessment/Plan #1 acute resp failure: cont oxygen #2 right pneumonia- gram positive/neg with sepsis: iv antibiotics #3 myasthenia gravis s/p thymectomy: cont meds #4 a fib with secondary hypercoagulable state: cont meds, coumadin #5 copd with exacerbation: cont meds, bronchodilators #6 s/p pacer #7 acute diastolic heart failure: echo, lasix iv #8 transaminitis #9 htn #10 cad s/p stent advance care planning- full code- time spent 18 mins Plan discussed with: Patient My Orders My Orders Orders - JENNIFER DANIELSON MD Procedure Category Date Status Time Ceftriaxone 1gm/50ml PHA 12/30/24 In Process (Rocephin) 09:00 Flecainide Tablet PHA 12/29/24 In Process (Tambocor Tablet) 22:00 Pt Request For Service PT 12/29/24 Logged 11:34 Mirtazapine Tablet PHA 12/29/24 In Process (Remeron Tablet) 22:00 Chest Portable XY 11/4/25 Resulted 06:00 Throat Lozenges PHA 12/29/24 In Process (Cepastat Lozenges) 16:30 Furosemide Injection PHA 12/30/24 Verified (Lasix Injection) 11:15 Furosemide Injection PHA 12/31/24 Verified (Lasix Injection) 10:00 Azithromycin Tablet PHA 12/31/24 Verified (Zithromax Tablet) 10:00 Potassium Er Tablet PHA 12/30/24 Verified (Klor-Con Tablet) 11:15 Basic Metabolic Panel LAB 12/31/24 Verified 06:00 Magnesium LAB 12/31/24 Verified 05:00 Date of Service: Dec 30, 2024 Billing Provider: JENNIFER DANIELSON MD Common Visit Codes: [id number] INP/OBS CARE(HIGH) JENNIFER DANIELSON MD Dec 30, 2024 11:12
[2024-12-30] MEDS: FUROSEMIDE 20 MG/2 ML VIAL IV ONE (11:15)
[2024-12-30] MEDS: FUROSEMIDE 20 MG TAB PO ONE (12:25)
[2024-12-30] MEDS: POTASSIUM CHL 20 Meq TABLET PO ONE (12:25)
[2024-12-30] MEDS: LEVALBUTEROL HCL 1.25 MG/3 ML NEB NEB SCH (18:09)
[2024-12-30] MEDS: IPRATROPIUM BROM 0.5 MG/2.5ML INH SOL NEB SCH (18:10)
[2024-12-30] MEDS: DOXYCYCLINE 100 MG TAB/CAP PO SCH (21:22)
[2024-12-31] VITALS (18 sets, daily range): BP systolic 113–168; BP diastolic 56–82; PULSE 60–105; RESP 17–22; TEMP 98–100.7; O2SAT 90–99
[2024-12-31 05:33] LABS: Chloride 105 mmol/L (98-107); Potassium 3.7 mmol/L (3.5-5.1); Sodium 143 mmol/L (136-145)
[2024-12-31 05:35] LABS: Calcium 9.2 mg/dL (8.7-10.4)
[2024-12-31 05:40] LABS: BUN/Creatinine Ratio 18.8 (10.0-20.0); Blood Urea Nitrogen 16 mg/dL (9-23); Magnesium 1.8 mg/dL (1.6-2.6)
[2024-12-31 05:43] LABS: Glucose 120 mg/dL (74-106)
[2024-12-31 05:45] LABS: INR 2.5 (0.9-1.15); Partial Thromboplastin Time 45.9 SEC (24.5-34.5); Prothrombin Time 24.2 sec (9.3-11.8)
[2024-12-31 06:18] LABS: Anion Gap 8 (5-15); Carbon Dioxide 30 mmol/L (20-31)
[2024-12-31] MEDS: FUROSEMIDE 20 MG/2 ML VIAL IV SCH (09:08)
[2024-12-31] MEDS ORDERED: AZITHROMYCIN 250 MG TAB PO SCH (10:00)
[2024-12-31] MEDS: ACETAMINOPHEN 325 MG TAB PO PRN (12:30)
[2024-12-31] MEDS: PIPERACILLIN-TAZOB 3.375GM 100 ML IV ONE (12:30)
[2024-12-31] MEDS: ACETYLCYSTEINE 20%(200MG/ML) SOL 4ML NEB SCH (14:21)
[2024-12-31] MEDS: PIPERACILLIN-TAZOB 3.375GM 100 ML IV SCH (17:00)
[2024-12-31] MEDS: WARFARIN SODIUM 2.5 MG TAB PO ONE (17:01)
[2025-01-01] VITALS (21 sets, daily range): BP systolic 112–138; BP diastolic 50–74; PULSE 56–106; RESP 16–26; TEMP 96.8–99.8; O2SAT 80–100
[2025-01-01 06:40] LABS: Hematocrit 36.1 % (36.0-46.0); Hemoglobin 12.2 g/dL (12.2-16.2); Mean Corpuscular Hemoglobin 29.2 pg (28.0-32.0); Mean Corpuscular Volume 86.4 fL (80.0-100.0); Nucleated Red Blood Cells % 0.0 %
[2025-01-01 06:49] LABS: INR 3.1 (0.9-1.15); Partial Thromboplastin Time 53.5 SEC (24.5-34.5); Prothrombin Time 29.4 sec (9.3-11.8)
[2025-01-01 06:58] LABS: Albumin 3.5 g/dL (3.2-4.8); Alkaline Phosphatase 61 U/L (46-116); Anion Gap 9 (5-15); BUN/Creatinine Ratio 22.0 (10.0-20.0); Blood Urea Nitrogen 20 mg/dL (9-23); Calcium 9.0 mg/dL (8.7-10.4); Chloride 102 mmol/L (98-107); Sodium 143 mmol/L (136-145); Total Protein 6.5 g/dL (5.7-8.2)
[2025-01-01 07:09] LABS: Potassium 3.0 mmol/L (3.5-5.1)
[2025-01-01 07:10] LABS: Alanine Aminotransferase 48 U/L (7-40); Bilirubin, Total 2.1 mg/dL (0.2-1.0); Carbon Dioxide 32 mmol/L (20-31); Glucose 154 mg/dL (74-106)
--- NOTE | 2025-01-01 12:02 | DVH ---
INDICATION: pneumonia TECHNIQUE: Single frontal view of the chest was obtained COMPARISON: XY CHEST PORTABLE on DOS: 12/30/24, US ECHO 2D MODE CARDIAC DOP on DOS: 12/29/24, XY CHEST PORTABLE on DOS: 12/28/24, XY CHEST PORTABLE on DOS: 07/21/24, XY CHEST PORTABLE on DOS: 12/19/23, XY CHEST PORTABLE on DOS: 12/30/24 FINDINGS: Lines and Tubes: Left chest wall pacemaker. Lungs: Increased multifocal airspace disease. Pleura: No effusion. No pneumothorax. Cardiomediastinal contours: Cardiomegaly. Bones: Unremarkable IMPRESSION: Increased multifocal airspace disease.
--- NOTE | 2025-01-01 15:08 | DVHPN2 ---
Progress Note Date Seen: Jan 01, 2025 Medical Necessity Reason Pt with a Central, PICC or Fol: No Subjective Patient reports: No new complaints Review of Systems: HEENT:Normal, CVS:Normal, RESPIRATORY:Normal, GI:Normal, :Normal, MSK:Normal, NEURO:Normal Objective vital signs Vital Sign Date Time Temp Pulse Resp B/P (MAP) Pulse Ox O2 Delivery O2 Flow Rate FiO2 01/01/25 14:56 62 17 97 01/01/25 14:48 Nasal Cannula 3.0 01/01/25 14:48 32 01/01/25 12:31 98.0 112/50 (70) 98.0 Total Intake and Output 12/31/24 12/31/24 01/01/25 15:00 23:00 07:00 Intake Total 150 ml 1000 ml 400 ml Output Total 2175 ml 150 ml Balance 150 ml -1175 ml 250 ml medications Current Medications Medications Dose Ordered Sig/Lesly Route Start Time Stop Time Status Last Admin Dose Admin Sodium Chloride 10 ml Q8HR IV 12/28/24 22:00 01/01/25 10:20 10 ML Acetaminophen/ Hydrocodone Bitart 1 tab Q4HP PRN PO 12/28/24 21:00 12/30/24 00:17 1 TAB Clopidogrel Bisulfate 75 mg DAILY PO 12/29/24 10:00 01/01/25 10:17 75 MG Pantoprazole Sodium 40 mg BID PO 12/28/24 22:00 01/01/25 10:16 40 MG Warfarin Sodium RX PROTOCOL PER PHARMACY PO 12/28/24 21:00 Pyridostigmine [place] 60 mg Q6HR PO 12/29/24 06:00 01/01/25 12:43 60 MG Flecainide Acet[place] 50 mg Q12HR PO 12/29/24 22:00 01/01/25 10:17 50 MG Mirtazapine 15 mg HS PO 12/29/24 22:00 12/31/24 21:34 15 MG Throat Lozenges 1 yuli Q2HP PRN MT 12/29/24 16:30 12/30/24 06:29 1 YULI Furosemide 20 mg DAILY IV 12/31/24 10:00 01/01/25 10:16 20 MG Azithromycin 500 mg DAILY PO 12/31/24 10:00 UNV Doxycycline Monohydrate 100 mg BID PO 12/30/24 22:00 01/01/25 10:16 100 MG Ipratropium [place] 0.5 mg Q4HR NEB 12/30/24 18:00 01/01/25 14:48 0.5 MG Levalbuterol HCl 1.25 mg Q4HR NEB 12/30/24 18:00 01/01/25 14:48 1.25 MG Piperacillin Sod/ Tazobactam Sod 100 ml @ 25 mls/hr Q8H IV 12/31/24 18:00 01/01/25 10:20 25 MLS/HR Guaifenesin 200 mg Q4HP PRN PO 12/31/24 11:45 01/01/25 01:59 200 MG Acetylcysteine 200 mg Q8HR NEB 12/31/24 14:00 01/01/25 14:48 200 MG Acetaminophen 650 mg Q4HP PRN PO 12/31/24 12:30 01/01/25 10:28 650 MG Examination: GENERAL:Normal, HEENT:Normal, NECK:Normal, LUNGS:Normal, LUNGS:Abnormal (on oxygen, rales), CVS:Normal, ABDOMEN:Normal, MSK:Normal, SKIN:Normal, NEURO:Normal, :Normal laboratory and microbiology Laboratory Tests 01/01/25 05:48 Test 01/01/25 05:48 Range/Units Serum Glucose 154 H 74-106 mg/dL Microbiology Date/Time Source Procedure Growth Status 12/30/24 01:36 Stool Clostridium difficile Toxin Assay - Final Complete 12/29/24 11:52 Sputum Gram Stain - Final Complete 12/29/24 11:52 Sputum Respiratory Culture - Final Complete 12/28/24 16:44 Blood Blood Culture - Preliminary NO GROWTH AFTER 72 HOURS OF INCUBATION. Resulted Problem List/Assessment/Plan Problem List/Assessment/Plan #1 acute resp failure: cont oxygen #2 right pneumonia- gram positive/neg with sepsis: iv antibiotics, ct chest #3 myasthenia gravis s/p thymectomy: cont meds #4 a fib with secondary hypercoagulable state: cont meds, coumadin #5 copd with exacerbation: cont meds, bronchodilators #6 s/p pacer #7 acute diastolic heart failure: echo, dc lasix iv #8 transaminitis #9 htn #10 cad s/p stent advance care planning- full code- time spent 18 mins Plan discussed with: Patient Dietary Evaluation Review Comments: Follow Cardiac diet, Check A1C Encourage high protein food, Monitor PO intake to meet at least 75% of her needs Wt management upon d/C Expected Outcomes/Goals: Recover from PNA, and sepsis, gradual wt loss Date of Service: Jan 01, 2025 Billing Provider: JENNIFER DANIELSON MD Common Visit Codes: [id number] INP/OBS CARE(HIGH) JENNIFER DANIELSON MD Jan 01, 2025 15:08
[2025-01-01] MEDS ORDERED: VANCOMYCIN PER PHARMACY 0 MG IV SCH (15:15)
[2025-01-01] MEDS: POTASSIUM CHL 20 Meq TABLET PO ONE (15:48)
[2025-01-01] MEDS: VANCOMYCIN 500mg/100mL 100 ML IV SCH (16:33)
--- NOTE | 2025-01-01 16:48 | DVH ---
EXAM: CT CHEST WITHOUT CONTRAST INDICATION: pneumonia TECHNIQUE: Noncontrast axial images of the chest have been obtained along with coronal and sagittal reformatted images. All CT scans at this facility use dose modulation, iterative reconstruction, and/or weight based dosing when appropriate to reduce radiation dose to as low as reasonably achievable. COMPARISON: XY CHEST PORTABLE on DOS: 01/01/25 FINDINGS: LOWER NECK: r dominant left thyroid lobe hypoattenuating lesion measuring 2.7 cm. Consider nonemergent ultrasound of the thyroid. LYMPH NODES/MEDIASTINUM: No abnormal lymph nodes by CT size criteria CARDIOVASCULAR: Normal cardiac size. No pericardial effusion. No aneurysmal dilatation of the great vessels. Coronary artery calcifications. UPPER ABDOMEN: Small incompletely characterized hypodensities within the liver, which are too small to characterize. MUSCULOSKELETAL: No acute fracture or aggressive focal osseous lesion. Multilevel degenerative change of the visualized spine. CHEST WALL: Left anterior chest cardiac device. LUNG PARENCHYMA/PLEURAL SPACE: Small right-sided pleural effusion with atelectasis. Significant areas of ground-glass of the centrilobular units with the appearance of crazy paving of bilateral upper lobes. Patchy areas of ground-glass in the right lower lobe and left lower lobe with inconspicuous per ibronchial thickening. No bronchiectasis. Cysts along change in bilateral upper lobes. IMPRESSION: 1. Significant areas of ground-glass of the centrilobular units with the appearance of crazy paving of bilateral upper lobes. 2. Patchy areas of ground-glass in the right lower lobe and left lower lobe with inconspicuous peribronchial thickening. 3. Small right-sided pleural effusion with atelectasis. 4. Overall imaging findings are nonspecific and may be seen in the setting of pulmonary alveolar proteinosis, pulmonary hemorrhage, and/or atypical infection.
[2025-01-02] VITALS (20 sets, daily range): BP systolic 114–148; BP diastolic 59–73; PULSE 60–110; RESP 16–26; TEMP 97.9–99.9; O2SAT 93–99
[2025-01-02 07:17] LABS: Hematocrit 34.7 % (36.0-46.0); Hemoglobin 11.7 g/dL (12.2-16.2); Mean Corpuscular Hemoglobin 29.5 pg (28.0-32.0); Mean Corpuscular Volume 87.3 fL (80.0-100.0); Nucleated Red Blood Cells % 0.1 %
[2025-01-02 07:24] LABS: INR 3.68 (0.9-1.15); Partial Thromboplastin Time 62.6 SEC (24.5-34.5); Prothrombin Time 34.3 sec (9.3-11.8)
[2025-01-02 07:27] LABS: Anion Gap 10 (5-15); Calcium 8.8 mg/dL (8.7-10.4); Carbon Dioxide 30 mmol/L (20-31); Chloride 102 mmol/L (98-107); Sodium 142 mmol/L (136-145)
[2025-01-02 07:28] LABS: Potassium 3.3 mmol/L (3.5-5.1)
[2025-01-02 07:33] LABS: BUN/Creatinine Ratio 24.3 (10.0-20.0); Blood Urea Nitrogen 18 mg/dL (9-23)
[2025-01-02 07:35] LABS: Glucose 114 mg/dL (74-106)
[2025-01-02] MEDS: POTASSIUM EFFERVESENT TAB 25 MEQ PO ONE (10:07)
--- NOTE | 2025-01-02 12:32 | DVHPN2 ---
Progress Note Date Seen: Jan 02, 2025 Medical Necessity Reason Pt with a Central, PICC or Fol: No Subjective Patient reports: No new complaints (Patient remained nasal cannula saturating well. Not using accessory muscle) Changes from previous H/P or p: No Changes Objective vital signs Vital Sign Date Time Temp Pulse Resp B/P (MAP) Pulse Ox O2 Delivery O2 Flow Rate FiO2 01/02/25 10:29 97 24 94 01/02/25 10:29 Nasal Cannula* 3 32 01/02/25 09:11 98.4 132/59 (83) 98.4 Total Intake and Output 01/01/25 01/01/25 01/02/25 15:00 23:00 07:00 Intake Total 100 ml 550 ml 620 ml Output Total 300 ml 250 ml Balance 100 ml 250 ml 370 ml medications Current Medications Medications Dose Ordered Sig/Lesly Route Start Time Stop Time Status Last Admin Dose Admin Sodium Chloride 10 ml Q8HR IV 12/28/24 22:00 01/02/25 05:48 10 ML Acetaminophen/ Hydrocodone Bitart 1 tab Q4HP PRN PO 12/28/24 21:00 01/02/25 04:44 1 TAB Clopidogrel Bisulfate 75 mg DAILY PO 12/29/24 10:00 01/02/25 10:07 75 MG Pantoprazole Sodium 40 mg BID PO 12/28/24 22:00 01/02/25 10:07 40 MG Warfarin Sodium RX PROTOCOL PER PHARMACY PO 12/28/24 21:00 Pyridostigmine [place] 60 mg Q6HR PO 12/29/24 06:00 01/02/25 12:24 60 MG Flecainide Acetate 50 mg Q12HR PO 12/29/24 22:00 01/02/25 10:07 50 MG Mirtazapine 15 mg HS PO 12/29/24 22:00 01/01/25 21:46 15 MG Throat Lozenges 1 yuli Q2HP PRN MT 12/29/24 16:30 12/30/24 06:29 1 YULI Azithromycin 500 mg DAILY PO 12/31/24 10:00 UNV Ipratropium [place] 0.5 mg Q4HR NEB 12/30/24 18:00 01/02/25 10:25 0.5 MG Levalbuterol HCl 1.25 mg Q4HR NEB 12/30/24 18:00 01/02/25 10:25 1.25 MG Piperacillin Sod/ Tazobactam Sod 100 ml @ 25 mls/hr Q8H IV 12/31/24 18:00 01/02/25 10:07 25 MLS/HR Guaifenesin 200 mg Q4HP PRN PO 12/31/24 11:45 01/01/25 20:41 200 MG Acetylcysteine 200 mg Q8HR NEB 12/31/24 14:00 01/02/25 07:01 200 MG Acetaminophen 650 mg Q4HP PRN PO 12/31/24 12:30 01/01/25 10:28 650 MG Vancomycin HCl 0 ml @ 0 mls/hr PER PHARMACY IV 01/01/25 15:15 Vancomycin HCl 100 ml @ 200 mls/hr Q12H IV 01/01/25 16:00 01/02/25 03:41 200 MLS/HR Examination: GENERAL:Normal, HEENT:Normal, NECK:Normal, LUNGS:Abnormal (Coarse breath sounds), CVS:Normal, ABDOMEN:Normal, MSK:Normal, SKIN:Normal, NEURO:Normal laboratory and microbiology Laboratory Tests 01/02/25 06:08 Test 01/02/25 06:08 Range/Units Serum Glucose 114 H 74-106 mg/dL Microbiology Date/Time Source Procedure Growth Status 12/30/24 01:36 Stool Clostridium difficile Toxin Assay - Final Complete 12/29/24 11:52 Sputum Gram Stain - Final Complete 12/29/24 11:52 Sputum Respiratory Culture - Final Complete 12/28/24 16:44 Blood Blood Culture - Preliminary NO GROWTH AFTER 72 HOURS OF INCUBATION. Resulted Labs and/or images reviewed: Labs reviewed by me, Image(s) reviewed by me Problem List/Assessment/Plan Problem List/Assessment/Plan #1 acute resp failure: cont oxygen #2 right pneumonia- gram positive/neg with sepsis: iv antibiotics, ct chest shows multifocal pneumonia #3 myasthenia gravis s/p thymectomy: cont meds #4 a fib with secondary hypercoagulable state: cont meds, coumadin #5 copd with exacerbation: cont meds, bronchodilators #6 s/p pacer #7 acute diastolic heart failure: echo, dc lasix iv #8 transaminitis #9 htn #10 cad s/p stent Plan discussed with: Patient My Orders My Orders Orders - CITLALY RO MD Procedure Category Date Status Time Respiratory Culture RUDY 01/02/25 Logged W/ Gs 09:42 Dietary Evaluation Review Comments: Follow Cardiac diet, Check A1C Encourage high protein food, Monitor PO intake to meet at least 75% of her needs Wt management upon d/C Expected Outcomes/Goals: Recover from PNA, and sepsis, gradual wt loss Date of Service: Jan 02, 2025 Billing Provider: CITLALY RO MD Common Visit Codes: [id number] SAME DATE (HIGH) CITLALY RO MD Jan 02, 2025 12:32
[2025-01-02] MEDS: Ensure HIGH Protein Chocolate 8oz Bottle PO SCH (18:00)
[2025-01-03] VITALS (22 sets, daily range): BP systolic 120–143; BP diastolic 59–69; PULSE 83–105; RESP 16–24; TEMP 97.5–99.1; O2SAT 87–99
[2025-01-03 03:26] LABS: Hematocrit 33.2 % (36.0-46.0); Hemoglobin 11.0 g/dL (12.2-16.2); Mean Corpuscular Hemoglobin 28.9 pg (28.0-32.0); Mean Corpuscular Volume 86.8 fL (80.0-100.0); Nucleated Red Blood Cells % 0.0 %
[2025-01-03 03:48] LABS: Chloride 101 mmol/L (98-107); Potassium 3.7 mmol/L (3.5-5.1); Sodium 141 mmol/L (136-145)
[2025-01-03 03:49] LABS: Anion Gap 9 (5-15)
[2025-01-03 03:54] LABS: BUN/Creatinine Ratio 40.6 (10.0-20.0)
[2025-01-03 03:58] LABS: Blood Urea Nitrogen 26 mg/dL (9-23); Calcium 8.6 mg/dL (8.7-10.4); Carbon Dioxide 31 mmol/L (20-31); Glucose 115 mg/dL (74-106)
--- NOTE | 2025-01-03 11:24 | DVHPN2 ---
Reviewed: H&P Changes from previous H/P or p: No Changes General: Per HPI Objective Vitals Vital Signs Date Time Temp Pulse Resp B/P (MAP) Pulse Ox O2 Delivery O2 Flow Rate FiO2 01/03/25 10:44 95 18 95 01/03/25 10:36 Nasal Cannula 3.0 01/03/25 10:36 32 01/03/25 08:35 98.0 136/68 (90) 98.0 Intake/Output Intake and Output 01/03/25 07:00 Intake Total 1740 ml Output Total 1500 ml Balance 240 ml Intake Oral 1340 ml IV Total 400 ml Output Urine Total 1500 ml # Bowel Movements 2 Exam GENERAL:Normal, HEENT:Normal, NECK:Normal, LUNGS:Abnormal (Coarse breath sounds), CVS:Normal, ABDOMEN:Normal, MSK:Normal, SKIN:Normal, NEURO:Normal Medications Current Medications Medications Dose Ordered Sig/Lesly Route Start Time Stop Time Status Last Admin Dose Admin Sodium Chloride 10 ml Q8HR IV 12/28/24 22:00 01/03/25 06:00 10 ML Acetaminophen/ Hydrocodone Bitart 1 tab Q4HP PRN PO 12/28/24 21:00 01/02/25 23:59 1 TAB Clopidogrel Bisulfate 75 mg DAILY PO 12/29/24 10:00 01/03/25 09:27 75 MG Pantoprazole Sodium 40 mg BID PO 12/28/24 22:00 01/03/25 09:28 40 MG Warfarin Sodium RX PROTOCOL PER PHARMACY PO 12/28/24 21:00 Pyridostigmine [place] 60 mg Q6HR PO 12/29/24 06:00 01/03/25 05:00 60 MG Flecainide Acetate 50 mg Q12HR PO 12/29/24 22:00 01/03/25 09:28 50 MG Mirtazapine 15 mg HS PO 12/29/24 22:00 01/02/25 21:06 15 MG Throat Lozenges 1 yuli Q2HP PRN MT 12/29/24 16:30 12/30/24 06:29 1 YULI Azithromycin 500 mg DAILY PO 12/31/24 10:00 UNV Ipratropium [place] 0.5 mg Q4HR NEB 12/30/24 18:00 01/03/25 10:36 0.5 MG Levalbuterol HCl 1.25 mg Q4HR NEB 12/30/24 18:00 01/03/25 10:36 1.25 MG Piperacillin Sod/ Tazobactam Sod 100 ml @ 25 mls/hr Q8H IV 12/31/24 18:00 01/03/25 09:35 25 MLS/HR Guaifenesin 200 mg Q4HP PRN PO 12/31/24 11:45 01/01/25 20:41 200 MG Acetylcysteine 200 mg Q8HR NEB 12/31/24 14:00 01/03/25 07:11 200 MG Acetaminophen 650 mg Q4HP PRN PO 12/31/24 12:30 01/01/25 10:28 650 MG Vancomycin HCl 0 ml @ 0 mls/hr PER PHARMACY IV 01/01/25 15:15 Vancomycin HCl 100 ml @ 200 mls/hr Q12H IV 01/01/25 16:00 01/03/25 04:00 200 MLS/HR Enteral Nutritional Formula 240 ml TIDWM PO 01/02/25 18:00 01/03/25 08:00 240 ML Laboratory Results Laboratory Tests 01/03/25 03:00 Chemistry Test 01/03/25 03:00 Calcium Level 8.6 mg/dL (8.7-10.4) L Urinalysis Test 12/29/24 11:10 Urine Color Light-yellow (Yellow) Urine Clarity Clear (Clear) Urine pH 5.0 (5.0-9.0) Urine Specific [place] 1.011 (1.001-1.035) Urine Protein Negative (Negative) Urine Ketones Negative (Negative) Urine Blood 2+ /uL (Negative) H Urine Nitrite Negative (Negative) Urine Bilirubin Negative (Negative) Urine Urobilinogen Normal mg/dL (Negative) Urine Leukocyte Esterase Negative /uL (Negative) Urine RBC 56 /hpf (0 - 4) Urine Microscopic WBC 3 /HPF (0-5) Urine Squamous Epithelial Cells None seen /hpf (<5) Urine Bacteria None seen /hpf (None Seen) Urine Mucus Few (None Seen) Urine Glucose Normal mg/dL (Normal) Microbiology Microbiology Date/Time Source Procedure Growth Status 12/30/24 01:36 Stool Clostridium difficile Toxin Assay - Final Complete 12/29/24 11:52 Sputum Gram Stain - Final Complete 12/29/24 11:52 Sputum Respiratory Culture - Final Complete 12/28/24 16:44 Blood Blood Culture - Final NO GROWTH AFTER 5 DAYS OF INCUBATION. Complete Labs and/or images reviewed: Labs reviewed by me, Image(s) reviewed by me Assessment/Plan Assessment/Plan 01/03: Patient continues to have rhonchi bilaterally, continuing vancomycin Zosyn. We will continue slow IV fluids. Continuing home meds patient has myasthenia gravis severely weak. We will continue physical therapy while she is here., We may need to add doxycycline to cover atypicals. We will continue to wait for nasal MRSA. - I had code status discussion with the patient's she wants to be DNR DNI. - this is [facility] patient she is on 6 L oxygen stable for transfer. #1 acute resp failure: cont oxygen #2 right pneumonia- gram positive/neg with sepsis: iv antibiotics, ct chest shows multifocal pneumonia #3 myasthenia gravis s/p thymectomy: cont meds #4 a fib with secondary hypercoagulable state: cont meds, coumadin #5 copd with exacerbation: cont meds, bronchodilators #6 s/p pacer #7 acute diastolic heart failure: echo, dc lasix iv #8 transaminitis #9 htn #10 cad s/p stent Tele DNR DNI Plan discussed with: Patient Date of Service: Jan 03, 2025 Billing Provider: KIRSTIN WITT MD Common Visit Codes: [id number] INP/OBS CARE(HIGH) KIRSTIN WITT MD Jan 03, 2025 11:24
[2025-01-03] MEDS: VANCOMYCIN 750MG KIT 100 ML IV SCH (16:19)
[2025-01-03 18:29] LABS: INR 3.29 (0.9-1.15); Partial Thromboplastin Time 62.0 SEC (24.5-34.5); Prothrombin Time 31.0 sec (9.3-11.8)
[2025-01-03] MEDS: methylPREDNISolone SOD SUCC 125 MG/2 ML VL IV ONE (23:25)
[2025-01-04] VITALS (21 sets, daily range): BP systolic 112–148; BP diastolic 62–85; PULSE 75–96; RESP 14–32; TEMP 97.4–99.6; O2SAT 92–99
[2025-01-04] MEDS ORDERED: methylPREDNISolone SOD SUCC 40 MG/ML VL IV ONE (06:00)
[2025-01-04 07:17] LABS: Hematocrit 36.6 % (36.0-46.0); Hemoglobin 12.2 g/dL (12.2-16.2); Mean Corpuscular Hemoglobin 29.7 pg (28.0-32.0); Mean Corpuscular Volume 89.1 fL (80.0-100.0); Nucleated Red Blood Cells % 0.1 %
[2025-01-04 08:17] LABS: Alanine Aminotransferase 34 U/L (7-40); Alkaline Phosphatase 75 U/L (46-116); BUN/Creatinine Ratio 24.2 (10.0-20.0); Blood Urea Nitrogen 16 mg/dL (9-23); Calcium 9.4 mg/dL (8.7-10.4); Carbon Dioxide 27 mmol/L (20-31); Total Protein 6.9 g/dL (5.7-8.2)
[2025-01-04 08:18] LABS: Albumin 3.5 g/dL (3.2-4.8)
[2025-01-04 08:21] LABS: Glucose 193 mg/dL (74-106)
[2025-01-04 08:22] LABS: Bilirubin, Total 1.4 mg/dL (0.2-1.0)
[2025-01-04 08:51] LABS: Anion Gap 13 (5-15); Chloride 100 mmol/L (98-107); Potassium 4.5 mmol/L (3.5-5.1); Sodium 140 mmol/L (136-145)
[2025-01-04] MEDS ORDERED: FAMOTIDINE (10MG/ML) 2ML VL IV SCH ×2 (10:00)
--- NOTE | 2025-01-04 14:45 | DVHPN2 ---
Reviewed: H&P Changes from previous H/P or p: No Changes General: Per HPI Objective Vitals Vital Signs Date Time Temp Pulse Resp B/P (MAP) Pulse Ox O2 Delivery O2 Flow Rate FiO2 01/04/25 13:00 97.7 87 16 137/75 (95) 94 97.7 01/04/25 10:00 Nasal Cannula 6.0 01/04/25 10:00 44 Intake/Output Intake and Output 01/04/25 07:00 Intake Total 800 ml Output Total 575 ml Balance 225 ml Intake Oral 400 ml IV Total 400 ml Output Urine Total 575 ml Exam GENERAL:Normal, HEENT:Normal, NECK:Normal, LUNGS:Abnormal (Coarse breath sounds), CVS:Normal, ABDOMEN:Normal, MSK:Normal, SKIN:Normal, NEURO:Normal Medications Current Medications Medications Dose Ordered Sig/Lesly Route Start Time Stop Time Status Last Admin Dose Admin Sodium Chloride 10 ml Q8HR IV 12/28/24 22:00 01/04/25 06:10 10 ML Acetaminophen/ Hydrocodone Bitart 1 tab Q4HP PRN PO 12/28/24 21:00 01/03/25 11:58 1 TAB Clopidogrel Bisulfate 75 mg DAILY PO 12/29/24 10:00 01/04/25 09:08 75 MG Pantoprazole Sodium 40 mg BID PO 12/28/24 22:00 01/04/25 09:09 40 MG Warfarin Sodium RX PROTOCOL PER PHARMACY PO 12/28/24 21:00 Pyridostigmine [place] 60 mg Q6HR PO 12/29/24 06:00 01/04/25 11:52 60 MG Flecainide Acetate 50 mg Q12HR PO 12/29/24 22:00 01/04/25 09:09 50 MG Mirtazapine 15 mg HS PO 12/29/24 22:00 01/03/25 21:27 15 MG Throat Lozenges 1 yuli Q2HP PRN MT 12/29/24 16:30 01/04/25 09:39 1 YULI Azithromycin 500 mg DAILY PO 12/31/24 10:00 UNV Ipratropium [place] 0.5 mg Q4HR NEB 12/30/24 18:00 01/04/25 14:39 0.5 MG Levalbuterol HCl 1.25 mg Q4HR NEB 12/30/24 18:00 01/04/25 14:39 1.25 MG Piperacillin Sod/ Tazobactam Sod 100 ml @ 25 mls/hr Q8H IV 12/31/24 18:00 01/04/25 09:38 25 MLS/HR Guaifenesin 200 mg Q4HP PRN PO 12/31/24 11:45 01/04/25 09:11 200 MG Acetylcysteine 200 mg Q8HR NEB 12/31/24 14:00 01/04/25 14:40 200 MG Acetaminophen 650 mg Q4HP PRN PO 12/31/24 12:30 01/01/25 10:28 650 MG Vancomycin HCl 0 ml @ 0 mls/hr PER PHARMACY IV 01/01/25 15:15 Enteral Nutritional Formula 240 ml TIDWM PO 01/02/25 18:00 01/04/25 11:57 240 ML Vancomycin HCl 100 ml @ 100 mls/hr Q12H IV 01/03/25 16:00 01/04/25 04:52 100 MLS/HR Methylprednisolone Sodium Succinate 40 mg BID IV 01/04/25 22:00 Famotidine 20 mg DAILY IV 01/04/25 10:00 Hold Laboratory Results Laboratory Tests 01/04/25 06:46 Chemistry Test 01/04/25 06:46 Albumin 3.5 g/dL (3.2-4.8) Calcium Level 9.4 mg/dL (8.7-10.4) Total Protein 6.9 g/dL (5.7-8.2) Coagulation Test 01/03/25 17:29 Prothrombin Time 31.0 sec (9.3-11.8) H Prothrombin Time INR 3.29 (0.9-1.15) H Activated Partial Thromboplast Time 62.0 SEC (24.5-34.5) H LFT Test 01/04/25 06:46 Alanine Aminotransferase (ALT) 34 U/L (7-40) Alkaline Phosphatase 75 U/L (46-116) Aspartate Amino Transferase (AST) 43 U/L (13-40) H Total Bilirubin 1.4 mg/dL (0.2-1.0) H Urinalysis Test 12/29/24 11:10 Urine Color Light-yellow (Yellow) Urine Clarity Clear (Clear) Urine pH 5.0 (5.0-9.0) Urine Specific [place] 1.011 (1.001-1.035) Urine Protein Negative (Negative) Urine Ketones Negative (Negative) Urine Blood 2+ /uL (Negative) H Urine Nitrite Negative (Negative) Urine Bilirubin Negative (Negative) Urine Urobilinogen Normal mg/dL (Negative) Urine Leukocyte Esterase Negative /uL (Negative) Urine RBC 56 /hpf (0 - 4) Urine Microscopic WBC 3 /HPF (0-5) Urine Squamous Epithelial Cells None seen /hpf (<5) Urine Bacteria None seen /hpf (None Seen) Urine Mucus Few (None Seen) Urine Glucose Normal mg/dL (Normal) Microbiology Microbiology Date/Time Source Procedure Growth Status 01/03/25 11:30 Nose MRSA Screen - Final Complete 12/30/24 01:36 Stool Clostridium difficile Toxin Assay - Final Complete 12/29/24 11:52 Sputum Gram Stain - Final Complete 12/29/24 11:52 Sputum Respiratory Culture - Final Complete 12/28/24 16:44 Blood Blood Culture - Final NO GROWTH AFTER 5 DAYS OF INCUBATION. Complete Labs and/or images reviewed: Labs reviewed by me, Image(s) reviewed by me Assessment/Plan Assessment/Plan HPI: 84-year-old female with past medical history of MG, AFIB, uterine cancer, CVA, DM, GERD, High Lipids, HTN, CO, UTI, presented to [facility] ED with complaint of chest pain and shortness breath. Patient states that 4 days ago, she developed a severe cough with green sputum and associated chest pain. The chest pain is described as a constant, aching pain, substernal, rated 8/10 in intensity. Coughing exacerbates the chest pain, which radiates to her back with no relieving factors. The symptoms are associated with shortness of breath and fever. She reports coughing up green and black-colored sputum today morning. She has been taking Tylenol and cough syrup for cough and chest pain, and using a nebulizer for shortness of breath, but reports that these have not been effective. The patient went to the local urgent care at [place] and they went ahead and called 911. The patient's oxygen saturation at the clinic was 87% on room air. The patient was then placed on 2 L nasal cannula and transported to our facility. On evaluation in the ED, patient is febrile, tachycardic, tachypnea, hypotensive (125/49 mmHg), with an oxygen saturation of 94% on 2 L nasal cannula. Initial labs show troponin 6, lactic acid 1.8 and BNP 313.50. Chest X-ray shows interval development of a interstitial airspace disease right lower lobe. The patient was placed Gonsalves catheter, started on breathing treatment, IV antibiotics and IV fluids. Patient is admitted for further evaluation and management. 01/03: Patient continues to have rhonchi bilaterally, continuing vancomycin Zosyn. We will continue slow IV fluids. Continuing home meds patient has myasthenia gravis severely weak. We will continue physical therapy while she is here., We may need to add doxycycline to cover atypicals. We will continue to wait for nasal MRSA. - I had code status discussion with the patient's she wants to be DNR DNI. - this is [facility] patient she is on 6 L oxygen stable for transfer. 01/04: Patient continues to have rhonchi right significantly more, left mostly clear. Continuing on IV antibiotics, vancomycin, Zosyn, doxycycline. Checking up on nasal MRSA. DNI DNI. Cc oxygen remains stable. Today as patient is not improving we will try incentive spirometry during daytime, and BiPAP 12/5 during all night or at least 1-2 hours nightly. Otherwise continue present management plan. Stop vancomycin as nasal MRSA is negative. #1 acute resp failure: cont oxygen #2 right pneumonia- gram positive/neg with sepsis: iv antibiotics, ct chest shows multifocal pneumonia #3 myasthenia gravis s/p thymectomy: cont meds #4 a fib with secondary hypercoagulable state: cont meds, coumadin #5 copd with exacerbation: cont meds, bronchodilators #6 s/p pacer #7 acute diastolic heart failure: echo, dc lasix iv #8 transaminitis #9 htn #10 cad s/p stent Tele DNR DNI Plan discussed with: Patient My Orders Orders - KIRSTIN WITT MD Procedure Category Date Status Time * Service Restorer Emergency CONS 01/03/25 Transmitted Consult Date of Service: Jan 04, 2025 Billing Provider: KIRSTIN WITT MD Common Visit Codes: [id number] INP/OBS CARE(HIGH) KIRSTIN WITT MD Jan 04, 2025 14:45
[2025-01-04] MEDS: methylPREDNISolone SOD SUCC 40 MG/ML VL IV SCH (21:00)
[2025-01-05] VITALS (21 sets, daily range): BP systolic 103–138; BP diastolic 50–97; PULSE 77–101; RESP 16–20; TEMP 97.1–98.5; O2SAT 94–100
[2025-01-05 06:58] LABS: Hematocrit 34.1 % (36.0-46.0); Hemoglobin 11.3 g/dL (12.2-16.2); Mean Corpuscular Hemoglobin 29.0 pg (28.0-32.0); Mean Corpuscular Volume 87.7 fL (80.0-100.0); Nucleated Red Blood Cells % 0.1 %
[2025-01-05 07:21] LABS: Alanine Aminotransferase 37 U/L (7-40); Anion Gap 10 (5-15); BUN/Creatinine Ratio 35.8 (10.0-20.0); Calcium 9.3 mg/dL (8.7-10.4); Chloride 100 mmol/L (98-107); Potassium 3.7 mmol/L (3.5-5.1); Sodium 142 mmol/L (136-145)
[2025-01-05 07:22] LABS: Total Protein 6.5 g/dL (5.7-8.2)
[2025-01-05 07:23] LABS: Albumin 3.3 g/dL (3.2-4.8)
[2025-01-05 07:28] LABS: Bilirubin, Total 1.3 mg/dL (0.2-1.0); Blood Urea Nitrogen 24 mg/dL (9-23); Carbon Dioxide 32 mmol/L (20-31); Glucose 178 mg/dL (74-106)
[2025-01-05 07:33] LABS: Alkaline Phosphatase 72 U/L (46-116)
--- NOTE | 2025-01-05 12:03 | DVHPN2 ---
Progress Note Date Seen: Jan 05, 2025 Medical Necessity Reason Pt with a Central, PICC or Fol: No Subjective Patient reports: No new complaints Review of Systems: HEENT:Normal, CVS:Normal, RESPIRATORY:Normal, GI:Normal, :Normal, MSK:Normal, NEURO:Normal Objective vital signs Vital Sign Date Time Temp Pulse Resp B/P (MAP) Pulse Ox O2 Delivery O2 Flow Rate FiO2 01/05/25 10:33 81 16 100 01/05/25 10:27 Nasal Cannula 4.0 01/05/25 10:27 36 01/05/25 09:00 97.1 103/50 (67) 97.1 Total Intake and Output 01/04/25 01/04/25 01/05/25 14:59 22:59 06:59 Intake Total 100 ml 325 ml 600 ml Output Total 220 ml 155 ml Balance 100 ml 105 ml 445 ml medications Current Medications Medications Dose Ordered Sig/Lesly Route Start Time Stop Time Status Last Admin Dose Admin Sodium Chloride 10 ml Q8HR IV 12/28/24 22:00 01/05/25 05:01 10 ML Acetaminophen/ Hydrocodone Bitart 1 tab Q4HP PRN PO 12/28/24 21:00 01/05/25 03:14 1 TAB Clopidogrel Bisulfate 75 mg DAILY PO 12/29/24 10:00 01/05/25 10:17 75 MG Pantoprazole Sodium 40 mg BID PO 12/28/24 22:00 01/05/25 10:17 40 MG Warfarin Sodium RX PROTOCOL PER PHARMACY PO 12/28/24 21:00 Pyridostigmine [place] 60 mg Q6HR PO 12/29/24 06:00 01/05/25 05:01 60 MG Flecainide Acetate 50 mg Q12HR PO 12/29/24 22:00 01/05/25 10:17 50 MG Mirtazapine 15 mg HS PO 12/29/24 22:00 01/04/25 21:00 15 MG Throat Lozenges 1 yuli Q2HP PRN MT 12/29/24 16:30 01/04/25 09:39 1 YULI Azithromycin 500 mg DAILY PO 12/31/24 10:00 UNV Ipratropium [place] 0.5 mg Q4HR NEB 12/30/24 18:00 01/05/25 10:25 0.5 MG Levalbuterol HCl 1.25 mg Q4HR NEB 12/30/24 18:00 01/05/25 10:25 1.25 MG Piperacillin Sod/ Tazobactam Sod 100 ml @ 25 mls/hr Q8H IV 12/31/24 18:00 01/05/25 10:16 25 MLS/HR Guaifenesin 200 mg Q4HP PRN PO 12/31/24 11:45 01/04/25 09:11 200 MG Acetylcysteine 200 mg Q8HR NEB 12/31/24 14:00 01/05/25 05:56 200 MG Acetaminophen 650 mg Q4HP PRN PO 12/31/24 12:30 01/01/25 10:28 650 MG Enteral Nutritional Formula 240 ml TIDWM PO 01/02/25 18:00 01/05/25 09:56 240 ML Methylprednisolone Sodium Succinate 40 mg BID IV 01/04/25 22:00 01/05/25 10:16 40 MG Famotidine 20 mg DAILY IV 01/04/25 10:00 Hold Examination: GENERAL:Normal, HEENT:Normal, NECK:Normal, LUNGS:Normal, LUNGS:Abnormal (ON OXYGEN), CVS:Normal, ABDOMEN:Normal, MSK:Normal, SKIN:Normal, NEURO:Normal, :Normal laboratory and microbiology Laboratory Tests 01/05/25 06:24 Test 01/05/25 06:24 Range/Units Serum Glucose 178 H 74-106 mg/dL Microbiology Date/Time Source Procedure Growth Status 01/03/25 11:30 Nose MRSA Screen - Final Complete 12/30/24 01:36 Stool Clostridium difficile Toxin Assay - Final Complete 12/29/24 11:52 Sputum Gram Stain - Final Complete 12/29/24 11:52 Sputum Respiratory Culture - Final Complete 12/28/24 16:44 Blood Blood Culture - Final NO GROWTH AFTER 5 DAYS OF INCUBATION. Complete Problem List/Assessment/Plan Problem List/Assessment/Plan #1 acute resp failure: cont oxygen #2 right pneumonia- gram positive/neg with sepsis: iv antibiotics, ct chest #3 myasthenia gravis s/p thymectomy: cont meds #4 a fib with secondary hypercoagulable state: cont meds, coumadin #5 copd with exacerbation: cont meds, bronchodilators #6 s/p pacer #7 acute diastolic heart failure: echo, dc lasix iv #8 transaminitis #9 htn #10 cad s/p stent advance care planning- full code- time spent 18 mins Plan discussed with: Patient My Orders My Orders Orders - JENNIFER DANIELSON MD Procedure Category Date Status Time Pantoprazole Tablet PHA 01/06/25 Verified (Protonix Tablet) 06:00 Chest Portable XY 01/06/25 Verified 06:00 Dietary Evaluation Review Comments: Follow Cardiac diet, Check A1C Encourage high protein food, Monitor PO intake to meet at least 75% of her needs Wt management upon d/C Expected Outcomes/Goals: Recover from PNA, and sepsis, gradual wt loss Date of Service: Jan 05, 2025 Billing Provider: JENNIFER DANIELSON MD Common Visit Codes: [id number] INP/OBS CARE(HIGH) JENNIFER DANIELSON MD Jan 05, 2025 12:03
[2025-01-05 16:18] LABS: INR 2.14 (0.9-1.15); Prothrombin Time 21.0 sec (9.3-11.8)
[2025-01-05] MEDS: WARFARIN SODIUM 2.5 MG TAB PO ONE (17:21)
[2025-01-06] VITALS (22 sets, daily range): BP systolic 127–147; BP diastolic 54–87; PULSE 72–91; RESP 14–20; TEMP 97.5–98.4; O2SAT 91–100
[2025-01-06] MEDS: PANTOPRAZOLE 40 MG TAB PO SCH (05:48)
--- NOTE | 2025-01-06 06:15 | DVH ---
CHEST RADIOGRAPH Indication: Reassess pneumonia Technique: Single frontal view of the chest was obtained COMPARISON: CT CHEST WITHOUT CONTRAST on DOS: 01/01/25, XY CHEST PORTABLE on DOS: 01/01/25, XY CHEST PORTABLE on DOS: 12/30/24, XY CHEST PORTABLE on DOS: 12/28/24, XY CHEST PORTABLE on DOS: 07/21/24 FINDINGS: Airspace disease within the right upper lung is less dense although persists. Cardiac silhouette is enlarged. Diffuse prominence of the pulmonary vasculature and interstitium with mild hazy ground-glass opacity throughout both lungs that appears slightly worse. IMPRESSION: Worsening pulmonary edema. Right upper lobe airspace disease appears less dense.
[2025-01-06 06:32] LABS: INR 2.18 (0.9-1.15); Prothrombin Time 21.4 sec (9.3-11.8)
--- NOTE | 2025-01-06 11:29 | DVHPN2 ---
Progress Note Date Seen: Jan 06, 2025 Medical Necessity Reason Pt with a Central, PICC or Fol: No Subjective Patient reports: No new complaints Review of Systems: HEENT:Normal, CVS:Normal, RESPIRATORY:Normal, GI:Normal, :Normal, MSK:Normal, NEURO:Normal Objective vital signs Vital Sign Date Time Temp Pulse Resp B/P (MAP) Pulse Ox O2 Delivery O2 Flow Rate FiO2 01/06/25 09:36 82 18 98 01/06/25 09:30 Nasal Cannula* 4 36 01/06/25 09:00 97.7 136/75 (95) 97.7 Total Intake and Output 01/05/25 01/05/25 01/06/25 15:00 23:00 07:00 Intake Total 480 ml 200 ml Output Total 600 ml 500 ml Balance -120 ml -300 ml medications Current Medications Medications Dose Ordered Sig/Lesly Route Start Time Stop Time Status Last Admin Dose Admin Sodium Chloride 10 ml Q8HR IV 12/28/24 22:00 01/06/25 05:49 10 ML Acetaminophen/ Hydrocodone Bitart 1 tab Q4HP PRN PO 12/28/24 21:00 01/06/25 00:11 1 TAB Clopidogrel Bisulfate 75 mg DAILY PO 12/29/24 10:00 01/06/25 10:06 75 MG Warfarin Sodium RX PROTOCOL PER PHARMACY PO 12/28/24 21:00 Pyridostigmine [place] 60 mg Q6HR PO 12/29/24 06:00 01/06/25 05:48 60 MG Flecainide Acetate 50 mg Q12HR PO 12/29/24 22:00 01/06/25 10:06 50 MG Mirtazapine 15 mg HS PO 12/29/24 22:00 01/05/25 21:14 15 MG Throat Lozenges 1 yuli Q2HP PRN MT 12/29/24 16:30 01/04/25 09:39 1 YULI Azithromycin 500 mg DAILY PO 12/31/24 10:00 UNV Ipratropium [place] 0.5 mg Q4HR NEB 12/30/24 18:00 01/06/25 09:29 0.5 MG Levalbuterol HCl 1.25 mg Q4HR NEB 12/30/24 18:00 01/06/25 09:29 1.25 MG Piperacillin Sod/ Tazobactam Sod 100 ml @ 25 mls/hr Q8H IV 12/31/24 18:00 01/06/25 10:06 25 MLS/HR Guaifenesin 200 mg Q4HP PRN PO 12/31/24 11:45 01/04/25 09:11 200 MG Acetylcysteine 200 mg Q8HR NEB 12/31/24 14:00 01/06/25 07:09 200 MG Acetaminophen 650 mg Q4HP PRN PO 12/31/24 12:30 01/01/25 10:28 650 MG Enteral Nutritional Formula 240 ml TIDWM PO 01/02/25 18:00 01/06/25 08:00 240 ML Methylprednisolone Sodium Succinate 40 mg BID IV 01/04/25 22:00 01/06/25 10:06 40 MG Pantoprazole Sodium 40 mg DAILY@0600 PO 01/06/25 06:00 01/06/25 05:48 40 MG Furosemide 40 mg DAILY PO 01/07/25 10:00 UNV Examination: GENERAL:Normal, HEENT:Normal, NECK:Normal, LUNGS:Normal, LUNGS:Abnormal (on oxygen), CVS:Normal, ABDOMEN:Normal, MSK:Normal, SKIN:Normal, NEURO:Normal, :Normal laboratory and microbiology Laboratory Tests 01/05/25 06:24 Test 01/05/25 06:24 Range/Units Serum Glucose 178 H 74-106 mg/dL Microbiology Date/Time Source Procedure Growth Status 01/03/25 11:30 Nose MRSA Screen - Final Complete 01/02/25 10:45 Sputum Gram Stain - Final Resulted 01/02/25 10:45 Sputum Respiratory Culture - Preliminary Resulted 12/30/24 01:36 Stool Clostridium difficile Toxin Assay - Final Complete 12/28/24 16:44 Blood Blood Culture - Final NO GROWTH AFTER 5 DAYS OF INCUBATION. Complete Problem List/Assessment/Plan Problem List/Assessment/Plan #1 acute resp failure: cont oxygen #2 right pneumonia- gram positive/neg with sepsis: iv antibiotics, #3 myasthenia gravis s/p thymectomy: cont meds #4 a fib with secondary hypercoagulable state: cont meds, coumadin #5 copd with exacerbation: cont meds, bronchodilators #6 s/p pacer #7 acute diastolic heart failure: echo, lasix #8 transaminitis #9 htn #10 cad s/p stent advance care planning- full code- time spent 18 mins Plan discussed with: Patient My Orders My Orders Orders - JENNIFER DANIELSON MD Procedure Category Date Status Time Pantoprazole Tablet PHA 01/06/25 In Process (Protonix Tablet) 06:00 Chest Portable XY 01/06/25 Resulted 06:00 Furosemide Tablet PHA 01/06/25 Transmitted (Lasix Tablet) 11:30 Furosemide Tablet PHA 01/07/25 Transmitted (Lasix Tablet) 10:00 Potassium Er Tablet PHA 01/06/25 Transmitted (Klor-Con Tablet) 11:30 Potassium Er Tablet PHA 01/07/25 Transmitted (Klor-Con Tablet) 10:00 Basic Metabolic Panel LAB 01/07/25 Verified 06:00 Magnesium LAB 01/07/25 Verified 05:00 Dietary Evaluation Review Comments: Follow Cardiac diet, Check A1C Encourage high protein food, Monitor PO intake to meet at least 75% of her needs Wt management upon d/C Expected Outcomes/Goals: Recover from PNA, and sepsis, gradual wt loss Date of Service: Jan 06, 2025 Billing Provider: JENNIFER DANIELSON MD Common Visit Codes: [id number] INP/OBS CARE(HIGH) JENNIFER DANIELSON MD Jan 06, 2025 11:29
[2025-01-06] MEDS: POTASSIUM CHL 20 Meq TABLET PO ONE (11:52)
[2025-01-06] MEDS: FUROSEMIDE 40 MG TAB PO ONE (11:56)
[2025-01-06] MEDS: WARFARIN SODIUM 2.5 MG TAB PO ONE (17:22)
[2025-01-06] MEDS: ACETYLCYSTEINE 20%(200MG/ML) SOL 4ML ONE (22:36)
[2025-01-07] VITALS (20 sets, daily range): BP systolic 119–142; BP diastolic 57–70; PULSE 64–82; RESP 16–20; TEMP 97.3–99; O2SAT 91–100
[2025-01-07 06:42] LABS: INR 2.53 (0.9-1.15); Prothrombin Time 24.5 sec (9.3-11.8)
[2025-01-07 06:44] LABS: Anion Gap 9 (5-15); Calcium 9.0 mg/dL (8.7-10.4); Chloride 99 mmol/L (98-107); Potassium 4.1 mmol/L (3.5-5.1); Sodium 143 mmol/L (136-145)
[2025-01-07 06:50] LABS: BUN/Creatinine Ratio 31.2 (10.0-20.0)
[2025-01-07 06:51] LABS: Blood Urea Nitrogen 24 mg/dL (9-23); Carbon Dioxide 35 mmol/L (20-31); Glucose 186 mg/dL (74-106); Magnesium 2.3 mg/dL (1.6-2.6)
[2025-01-07] MEDS: FUROSEMIDE 40 MG TAB PO SCH (11:24)
[2025-01-07] MEDS: POTASSIUM CHL 20 Meq TABLET PO SCH (11:25)
--- NOTE | 2025-01-07 11:42 | DVHPN2 ---
Progress Note Date Seen: Jan 07, 2025 Medical Necessity Reason Pt with a Central, PICC or Fol: No Subjective Patient reports: No new complaints Review of Systems: HEENT:Normal, CVS:Normal, RESPIRATORY:Normal, GI:Normal, :Normal, MSK:Normal, NEURO:Normal Objective vital signs Vital Sign Date Time Temp Pulse Resp B/P (MAP) Pulse Ox O2 Delivery O2 Flow Rate FiO2 01/07/25 11:24 138/52 01/07/25 09:54 75 16 98 01/07/25 09:49 Nasal Cannula* 4 36 01/07/25 09:00 98.7 98.7 Total Intake and Output 01/06/25 01/06/25 01/07/25 15:00 23:00 07:00 Intake Total 840 ml 100 ml Output Total 850 ml 500 ml Balance -10 ml -400 ml medications Current Medications Medications Dose Ordered Sig/Lesly Route Start Time Stop Time Status Last Admin Dose Admin Sodium Chloride 10 ml Q8HR IV 12/28/24 22:00 01/07/25 05:35 10 ML Clopidogrel Bisulfate 75 mg DAILY PO 12/29/24 10:00 01/07/25 11:25 75 MG Warfarin Sodium RX PROTOCOL PER PHARMACY PO 12/28/24 21:00 Pyridostigmine [place] 60 mg Q6HR PO 12/29/24 06:00 01/07/25 05:35 60 MG Flecainide Acetate 50 mg Q12HR PO 12/29/24 22:00 01/07/25 11:25 50 MG Mirtazapine 15 mg HS PO 12/29/24 22:00 01/06/25 22:07 15 MG Throat Lozenges 1 yuli Q2HP PRN MT 12/29/24 16:30 01/04/25 09:39 1 YULI Azithromycin 500 mg DAILY PO 12/31/24 10:00 UNV Ipratropium [place] 0.5 mg Q4HR NEB 12/30/24 18:00 01/07/25 09:48 0.5 MG Levalbuterol HCl 1.25 mg Q4HR NEB 12/30/24 18:00 01/07/25 09:49 1.25 MG Piperacillin Sod/ Tazobactam Sod 100 ml @ 25 mls/hr Q8H IV 12/31/24 18:00 01/07/25 11:27 25 MLS/HR Guaifenesin 200 mg Q4HP PRN PO 12/31/24 11:45 01/06/25 22:07 200 MG Acetylcysteine 200 mg Q8HR NEB 12/31/24 14:00 01/07/25 06:11 200 MG Acetaminophen 650 mg Q4HP PRN PO 12/31/24 12:30 01/07/25 00:50 650 MG Enteral Nutritional Formula 240 ml TIDWM PO 01/02/25 18:00 01/07/25 08:00 240 ML Methylprednisolone Sodium Succinate 40 mg BID IV 01/04/25 22:00 01/07/25 11:26 40 MG Pantoprazole Sodium 40 mg DAILY@0600 PO 01/06/25 06:00 01/07/25 05:35 40 MG Furosemide 40 mg DAILY PO 01/07/25 10:00 01/07/25 11:24 40 MG Potassium Chloride 20 meq DAILY PO 01/07/25 10:00 01/07/25 11:25 20 MEQ Nystatin 5 ml QID MT 01/07/25 12:00 Examination: GENERAL:Normal, HEENT:Normal, NECK:Normal, LUNGS:Normal, LUNGS:Abnormal (on oxygen), CVS:Normal, ABDOMEN:Normal, MSK:Normal, SKIN:Normal, NEURO:Normal, :Normal laboratory and microbiology Laboratory Tests 01/07/25 05:01 01/05/25 06:24 Test 01/07/25 05:01 Range/Units Serum Glucose 186 H 74-106 mg/dL Microbiology Date/Time Source Procedure Growth Status 01/03/25 11:30 Nose MRSA Screen - Final Complete 01/02/25 10:45 Sputum Gram Stain - Final Resulted 01/02/25 10:45 Sputum Respiratory Culture - Preliminary Resulted 12/30/24 01:36 Stool Clostridium difficile Toxin Assay - Final Complete 12/28/24 16:44 Blood Blood Culture - Final NO GROWTH AFTER 5 DAYS OF INCUBATION. Complete Problem List/Assessment/Plan Problem List/Assessment/Plan #1 acute resp failure: cont oxygen #2 right pneumonia- gram positive/neg with sepsis: iv antibiotics, #3 myasthenia gravis s/p thymectomy: cont meds #4 a fib with secondary hypercoagulable state: cont meds, coumadin #5 copd with exacerbation: cont meds, bronchodilators #6 s/p pacer #7 acute diastolic heart failure: echo, lasix #8 transaminitis #9 htn #10 cad s/p stent advance care planning- full code- time spent 18 mins Plan discussed with: Patient My Orders My Orders Orders - JENNIFER DANIELSON MD Procedure Category Date Status Time Nystatin PHA 01/07/25 In Process (Mouth-Throat) 12:00 Methylprednisolone PHA 01/07/25 Verified Sod Succ (Solu Medrol 22:00 Stool Occult Blood LAB 01/07/25 Uncollected 11:38 Complete Blood Count LAB 01/08/25 Verified 06:00 Basic Metabolic Panel LAB 01/08/25 Verified 06:00 Magnesium LAB 01/08/25 Verified 05:00 Dietary Evaluation Review Comments: Follow Cardiac diet, Check A1C Encourage high protein food, Monitor PO intake to meet at least 75% of her needs Wt management upon d/C Expected Outcomes/Goals: Recover from PNA, and sepsis, gradual wt loss Date of Service: Jan 07, 2025 Billing Provider: JENNIFER DANIELSON MD Common Visit Codes: [id number] INP/OBS CARE(HIGH) JENNIFER DANIELSON MD Jan 07, 2025 11:42
[2025-01-07] MEDS: NYSTATIN (MOUTH-THROAT) 500,000 UNITS/5 ML SUSP MT SCH (13:02)
[2025-01-07] MEDS: WARFARIN SODIUM 2.5 MG TAB PO ONE (17:32)
[2025-01-07] MEDS: methylPREDNISolone SOD SUCC 40 MG/ML VL IV SCH (21:42)
[2025-01-08] VITALS (25 sets, daily range): BP systolic 127–154; BP diastolic 55–85; PULSE 64–93; RESP 14–19; TEMP 97.1–98.1; O2SAT 68–100
[2025-01-08 06:56] LABS: Hematocrit 34.3 % (36.0-46.0); Hemoglobin 11.4 g/dL (12.2-16.2); Mean Corpuscular Hemoglobin 30.7 pg (28.0-32.0); Mean Corpuscular Volume 92.3 fL (80.0-100.0); Nucleated Red Blood Cells % 0.0 %
[2025-01-08 07:08] LABS: Potassium 3.8 mmol/L (3.5-5.1); Sodium 141 mmol/L (136-145)
[2025-01-08 07:09] LABS: Anion Gap 7 (5-15)
[2025-01-08 07:10] LABS: Calcium 8.9 mg/dL (8.7-10.4)
[2025-01-08 07:14] LABS: BUN/Creatinine Ratio 32.1 (10.0-20.0)
[2025-01-08 07:15] LABS: Blood Urea Nitrogen 25 mg/dL (9-23); Carbon Dioxide 38 mmol/L (20-31); Chloride 96 mmol/L (98-107); Glucose 175 mg/dL (74-106); Magnesium 2.2 mg/dL (1.6-2.6)
[2025-01-08 07:18] LABS: INR 3.06 (0.9-1.15); Prothrombin Time 29.0 sec (9.3-11.8)
--- NOTE | 2025-01-08 14:27 | DVHPN2 ---
Progress Note Date Seen: Jan 08, 2025 Medical Necessity Reason Pt with a Central, PICC or Fol: No Subjective Patient reports: No new complaints Review of Systems: HEENT:Normal, CVS:Normal, RESPIRATORY:Normal, GI:Normal, :Normal, MSK:Normal, NEURO:Normal Objective vital signs Vital Sign Date Time Temp Pulse Resp B/P (MAP) Pulse Ox O2 Delivery O2 Flow Rate FiO2 01/08/25 13:00 97.3 71 18 148/73 (98) 99 97.3 01/08/25 10:05 Nasal Cannula 4.0 01/08/25 09:31 36 Total Intake and Output 01/07/25 01/07/25 01/08/25 15:00 23:00 07:00 Intake Total 480 ml 380 ml Output Total 900 ml 450 ml Balance -420 ml -70 ml medications Current Medications Medications Dose Ordered Sig/Lesly Route Start Time Stop Time Status Last Admin Dose Admin Sodium Chloride 10 ml Q8HR IV 12/28/24 22:00 01/08/25 13:15 10 ML Clopidogrel Bisulfate 75 mg DAILY PO 12/29/24 10:00 01/08/25 09:55 75 MG Warfarin Sodium RX PROTOCOL PER PHARMACY PO 12/28/24 21:00 Pyridostigmine [place] 60 mg Q6HR PO 12/29/24 06:00 01/08/25 13:14 60 MG Flecainide Acetate 50 mg Q12HR PO 12/29/24 22:00 01/08/25 09:55 50 MG Mirtazapine 15 mg HS PO 12/29/24 22:00 01/07/25 21:42 15 MG Throat Lozenges 1 yuli Q2HP PRN MT 12/29/24 16:30 01/07/25 13:02 1 YULI Azithromycin 500 mg DAILY PO 12/31/24 10:00 UNV Ipratropium [place] 0.5 mg Q4HR NEB 12/30/24 18:00 01/08/25 09:28 0.5 MG Levalbuterol HCl 1.25 mg Q4HR NEB 12/30/24 18:00 01/08/25 09:28 1.25 MG Piperacillin Sod/ Tazobactam Sod 100 ml @ 25 mls/hr Q8H IV 12/31/24 18:00 01/08/25 11:45 25 MLS/HR Guaifenesin 200 mg Q4HP PRN PO 12/31/24 11:45 01/08/25 06:42 200 MG Acetylcysteine 200 mg Q8HR NEB 12/31/24 14:00 01/08/25 06:08 200 MG Acetaminophen 650 mg Q4HP PRN PO 12/31/24 12:30 01/08/25 01:29 650 MG Enteral Nutritional Formula 240 ml TIDWM PO 01/02/25 18:00 01/08/25 11:45 240 ML Pantoprazole Sodium 40 mg DAILY@0600 PO 01/06/25 06:00 01/08/25 05:06 40 MG Furosemide 40 mg DAILY PO 01/07/25 10:00 01/08/25 09:56 40 MG Potassium Chloride 20 meq DAILY PO 01/07/25 10:00 01/08/25 09:55 20 MEQ Nystatin 5 ml QID MT 01/07/25 12:00 01/08/25 13:14 5 ML Methylprednisolone Sodium Succinate 20 mg BID IV 01/07/25 22:00 01/08/25 09:54 20 MG Examination: GENERAL:Normal, HEENT:Normal, NECK:Normal, LUNGS:Normal, LUNGS:Abnormal (on oxygen), CVS:Normal, ABDOMEN:Normal, MSK:Normal, SKIN:Normal, NEURO:Normal, :Normal laboratory and microbiology Laboratory Tests 01/08/25 05:53 Test 01/08/25 05:53 Range/Units Serum Glucose 175 H 74-106 mg/dL Microbiology Date/Time Source Procedure Growth Status 01/03/25 11:30 Nose MRSA Screen - Final Complete 01/02/25 10:45 Sputum Gram Stain - Final Complete 01/02/25 10:45 Sputum Respiratory Culture - Final Complete 12/30/24 01:36 Stool Clostridium difficile Toxin Assay - Final Complete 12/28/24 16:44 Blood Blood Culture - Final NO GROWTH AFTER 5 DAYS OF INCUBATION. Complete Problem List/Assessment/Plan Problem List/Assessment/Plan #1 acute resp failure: cont oxygen #2 right pneumonia- gram positive/neg with sepsis: iv antibiotics, #3 myasthenia gravis s/p thymectomy: cont meds #4 a fib with secondary hypercoagulable state: cont meds, coumadin #5 copd with exacerbation: cont meds, bronchodilators #6 s/p pacer #7 acute diastolic heart failure: echo, lasix #8 transaminitis #9 htn #10 cad s/p stent advance care planning- full code- time spent 18 mins Plan discussed with: Patient Dietary Evaluation Review Comments: Follow Cardiac diet, Check A1C Encourage high protein food, Monitor PO intake to meet at least 75% of her needs Wt management upon d/C Expected Outcomes/Goals: Recover from PNA, and sepsis, gradual wt loss Date of Service: Jan 08, 2025 Billing Provider: JENNIFER DANIELSON MD Common Visit Codes: [id number] INP/OBS CARE(HIGH) JENNIFER DANIELSON MD Jan 08, 2025 14:27
[2025-01-09] VITALS (19 sets, daily range): BP systolic 119–167; BP diastolic 44–65; PULSE 53–81; RESP 14–18; TEMP 97.6–98; O2SAT 88–100
--- NOTE | 2025-01-09 06:06 | DVH ---
CHEST RADIOGRAPH Indication: PNEUMONIA Technique: Single frontal view of the chest was obtained COMPARISON: XY CHEST PORTABLE on DOS: 01/06/25, CT CHEST WITHOUT CONTRAST on DOS: 01/01/25, XY CHEST PORTABLE on DOS: 01/01/25, XY CHEST PORTABLE on DOS: 12/30/24, XY CHEST PORTABLE on DOS: 12/28/24 FINDINGS: Lines and Tubes: Left chest pacemaker. Lungs: Multifocal airspace disease. Slightly improved aeration. Pleura: No effusion.No pneumothorax. Cardiomediastinal contours: Cardiomegaly. Bones: Unremarkable IMPRESSION: Multifocal airspace disease, slightly improved.
[2025-01-09 06:26] LABS: INR 3.09 (0.9-1.15); Partial Thromboplastin Time 45.7 SEC (24.5-34.5); Prothrombin Time 29.3 sec (9.3-11.8)
[2025-01-09 06:28] LABS: Potassium 3.5 mmol/L (3.5-5.1); Sodium 141 mmol/L (136-145)
[2025-01-09 06:29] LABS: Anion Gap 7 (5-15)
[2025-01-09 06:34] LABS: BUN/Creatinine Ratio 21.1 (10.0-20.0); Blood Urea Nitrogen 16 mg/dL (9-23); Glucose 95 mg/dL (74-106)
[2025-01-09 06:36] LABS: Calcium 8.7 mg/dL (8.7-10.4); Carbon Dioxide 36 mmol/L (20-31); Chloride 98 mmol/L (98-107)
[2025-01-09] MEDS: FUROSEMIDE 40 MG TAB PO SCH (09:17)
[2025-01-09] MEDS: predniSONE 20 MG TAB PO SCH (09:24)
[2025-01-09] MEDS: POTASSIUM CHL 10 Meq TABLET PO SCH (09:25)
--- NOTE | 2025-01-09 14:21 | DVHPN2 ---
Subjective Patient continues to report having severe generalized weakness and shortness of breaths Reviewed: H&P Changes from previous H/P or p: No Changes General: Per HPI Objective Vitals Vital Signs Date Time Temp Pulse Resp B/P (MAP) Pulse Ox O2 Delivery O2 Flow Rate FiO2 01/09/25 13:00 97.7 65 16 128/59 (82) 96 97.7 01/09/25 10:18 Nasal Cannula 4.0 01/09/25 10:18 36 Intake/Output Intake and Output 01/09/25 07:00 Intake Total 950 ml Output Total 1950 ml Balance -1000 ml Intake Oral 850 ml IV Total 100 ml Output Urine Total 1950 ml # Bowel Movements 2 General Appearance: Alert, Oriented X3, Cooperative, mild distress HEENT: Atraumatic, PERRLA Cardiovascular: Normal S1, Normal S2 Abdomen: Soft, No tenderness, No hepatospenomegaly Musculoskeletal: Normal sensory function, Normal motor function, Other (Deconditioned) Skin: Dry, Intact Psych/Mental Status: Mental status NL, Mood NL Medications Current Medications Medications Dose Ordered Sig/Lesly Route Start Time Stop Time Status Last Admin Dose Admin Sodium Chloride 10 ml Q8HR IV 12/28/24 22:00 01/09/25 05:31 10 ML Clopidogrel Bisulfate 75 mg DAILY PO 12/29/24 10:00 01/09/25 09:18 75 MG Warfarin Sodium RX PROTOCOL PER PHARMACY PO 12/28/24 21:00 Pyridostigmine [place] 60 mg Q6HR PO 12/29/24 06:00 01/09/25 11:00 60 MG Flecainide Acetate 50 mg Q12HR PO 12/29/24 22:00 01/09/25 09:18 50 MG Mirtazapine 15 mg HS PO 12/29/24 22:00 01/08/25 21:23 15 MG Throat Lozenges 1 yuli Q2HP PRN MT 12/29/24 16:30 01/07/25 13:02 1 YULI Azithromycin 500 mg DAILY PO 12/31/24 10:00 UNV Ipratropium [place] 0.5 mg Q4HR NEB 12/30/24 18:00 01/09/25 13:49 0.5 MG Levalbuterol HCl 1.25 mg Q4HR NEB 12/30/24 18:00 01/09/25 13:49 1.25 MG Piperacillin Sod/ Tazobactam Sod 100 ml @ 25 mls/hr Q8H IV 12/31/24 18:00 01/09/25 09:24 25 MLS/HR Guaifenesin 200 mg Q4HP PRN PO 12/31/24 11:45 01/08/25 06:42 200 MG Acetylcysteine 200 mg Q8HR NEB 12/31/24 14:00 01/09/25 13:50 200 MG Acetaminophen 650 mg Q4HP PRN PO 12/31/24 12:30 01/08/25 23:43 650 MG Enteral Nutritional Formula 240 ml TIDWM PO 01/02/25 18:00 01/09/25 11:33 240 ML Pantoprazole Sodium 40 mg DAILY@0600 PO 01/06/25 06:00 01/09/25 05:31 40 MG Nystatin 5 ml QID MT 01/07/25 12:00 01/09/25 11:01 5 ML Furosemide 20 mg DAILY PO 01/09/25 10:00 01/09/25 09:17 20 MG Potassium Chloride 10 meq DAILY PO 01/09/25 10:00 01/09/25 09:25 10 MEQ Prednisone 40 mg DAILY PO 01/09/25 10:00 01/09/25 09:24 40 MG Laboratory Results Laboratory Tests 01/08/25 05:53 01/09/25 05:18 Chemistry Test 01/09/25 05:18 Calcium Level 8.7 mg/dL (8.7-10.4) Coagulation Test 01/09/25 05:18 Prothrombin Time 29.3 sec (9.3-11.8) H Prothrombin Time INR 3.09 (0.9-1.15) H Activated Partial Thromboplast Time 45.7 SEC (24.5-34.5) H Urinalysis Test 12/29/24 11:10 Urine Color Light-yellow (Yellow) Urine Clarity Clear (Clear) Urine pH 5.0 (5.0-9.0) Urine Specific [place] 1.011 (1.001-1.035) Urine Protein Negative (Negative) Urine Ketones Negative (Negative) Urine Blood 2+ /uL (Negative) H Urine Nitrite Negative (Negative) Urine Bilirubin Negative (Negative) Urine Urobilinogen Normal mg/dL (Negative) Urine Leukocyte Esterase Negative /uL (Negative) Urine RBC 56 /hpf (0 - 4) Urine Microscopic WBC 3 /HPF (0-5) Urine Squamous Epithelial Cells None seen /hpf (<5) Urine Bacteria None seen /hpf (None Seen) Urine Mucus Few (None Seen) Urine Glucose Normal mg/dL (Normal) Microbiology Microbiology Date/Time Source Procedure Growth Status 01/03/25 11:30 Nose MRSA Screen - Final Complete 01/02/25 10:45 Sputum Gram Stain - Final Complete 01/02/25 10:45 Sputum Respiratory Culture - Final Complete 12/30/24 01:36 Stool Clostridium difficile Toxin Assay - Final Complete 12/28/24 16:44 Blood Blood Culture - Final NO GROWTH AFTER 5 DAYS OF INCUBATION. Complete Labs and/or images reviewed: Labs reviewed by me, Image(s) reviewed by me Assessment/Plan Assessment/Plan Impression: -acute respiratory failure -multifocal pneumonia, probable Gram-positive/Gram-negative etiology -myasthenia gravis -AFib with controlled rate -COPD with exacerbation -history of PPI -acute diastolic heart failure -elevated LFTs -primary hypertension -coronary artery disease with previous stent placement Plan: -continue bronchodilators, mucolytics -continue IV steroids -O2 supplementation to keep saturation greater than 91% -continue anticoagulation with Coumadin -consider repeat CT scan -consider bronchoscopy -repeat labs in a.m. Total time spent with patient discussing and formulating plan of care: 35 minutes. This medical document was created using an electronic medical record system with [employer] dictation system. Although this document has been carefully reviewed, there may still be some phonetic and typographical errors. These areas are purely typographical due to imperfections of the software programs, and do not reflect any compromise in the patient's medical care. Plan discussed with: Patient, Other (RN) Date of Service: Jan 09, 2025 Billing Provider: VIRAJ VELASQUEZ NP Common Visit Codes: [id number] INP/OBS CARE(HIGH) VIRAJ VELASQUEZ NP Jan 09, 2025 14:21
[2025-01-10] VITALS (19 sets, daily range): BP systolic 115–169; BP diastolic 59–79; PULSE 65–110; RESP 16–18; TEMP 97.3–98; O2SAT 68–100
[2025-01-10 07:44] LABS: Hematocrit 38.0 % (36.0-46.0); Hemoglobin 12.4 g/dL (12.2-16.2); Mean Corpuscular Hemoglobin 29.8 pg (28.0-32.0); Mean Corpuscular Volume 91.4 fL (80.0-100.0); Nucleated Red Blood Cells % 0.1 %
[2025-01-10 07:50] LABS: Anion Gap 8 (5-15); Chloride 98 mmol/L (98-107); Sodium 142 mmol/L (136-145)
[2025-01-10 07:51] LABS: Calcium 9.1 mg/dL (8.7-10.4); Carbon Dioxide 36 mmol/L (20-31); Potassium 3.4 mmol/L (3.5-5.1)
[2025-01-10 07:56] LABS: BUN/Creatinine Ratio 20.6 (10.0-20.0); Blood Urea Nitrogen 14 mg/dL (9-23); Glucose 94 mg/dL (74-106)
[2025-01-10 11:52] LABS: INR 2.23 (0.9-1.15); Partial Thromboplastin Time 42.8 SEC (24.5-34.5); Prothrombin Time 21.8 sec (9.3-11.8)
--- NOTE | 2025-01-10 12:09 | DVHPN2 ---
Reviewed: Care Plan, H&P Changes from previous H/P or p: No Changes General: Per HPI Objective Vitals Vital Signs Date Time Temp Pulse Resp B/P (MAP) Pulse Ox O2 Delivery O2 Flow Rate FiO2 01/10/25 10:25 146/69 01/10/25 10:11 69 16 100 01/10/25 10:05 Nasal Cannula* 2 28 01/10/25 09:00 97.6 97.6 Intake/Output Intake and Output 01/10/25 07:00 Intake Total 1340 ml Output Total 1075 ml Balance 265 ml Intake Oral 1140 ml IV Total 200 ml Output Urine Total 1075 ml # Bowel Movements 1 General Appearance: Alert, Oriented X3, Cooperative, mild distress HEENT: Atraumatic, PERRLA Cardiovascular: Normal S1, Normal S2 Abdomen: Soft, No tenderness, No hepatospenomegaly Musculoskeletal: Normal sensory function, Normal motor function, Other (Deconditioned) Skin: Dry, Intact Psych/Mental Status: Mental status NL, Mood NL Medications Current Medications Medications Dose Ordered Sig/Lesly Route Start Time Stop Time Status Last Admin Dose Admin Sodium Chloride 10 ml Q8HR IV 12/28/24 22:00 01/10/25 05:11 10 ML Clopidogrel Bisulfate 75 mg DAILY PO 12/29/24 10:00 01/10/25 10:25 75 MG Warfarin Sodium RX PROTOCOL PER PHARMACY PO 12/28/24 21:00 Pyridostigmine [place] 60 mg Q6HR PO 12/29/24 06:00 01/10/25 11:40 60 MG Flecainide Acetate 50 mg Q12HR PO 12/29/24 22:00 01/10/25 10:24 50 MG Mirtazapine 15 mg HS PO 12/29/24 22:00 01/09/25 21:18 15 MG Throat Lozenges 1 yuli Q2HP PRN MT 12/29/24 16:30 01/07/25 13:02 1 YULI Azithromycin 500 mg DAILY PO 12/31/24 10:00 UNV Ipratropium [place] 0.5 mg Q4HR NEB 12/30/24 18:00 01/10/25 10:05 0.5 MG Levalbuterol HCl 1.25 mg Q4HR NEB 12/30/24 18:00 01/10/25 10:05 1.25 MG Piperacillin Sod/ Tazobactam Sod 100 ml @ 25 mls/hr Q8H IV 12/31/24 18:00 01/10/25 10:24 25 MLS/HR Guaifenesin 200 mg Q4HP PRN PO 12/31/24 11:45 01/08/25 06:42 200 MG Acetylcysteine 200 mg Q8HR NEB 12/31/24 14:00 01/10/25 06:09 200 MG Acetaminophen 650 mg Q4HP PRN PO 12/31/24 12:30 01/10/25 01:42 650 MG Enteral Nutritional Formula 240 ml TIDWM PO 01/02/25 18:00 01/10/25 08:00 240 ML Pantoprazole Sodium 40 mg DAILY@0600 PO 01/06/25 06:00 01/10/25 05:33 40 MG Nystatin 5 ml QID MT 01/07/25 12:00 01/10/25 11:40 5 ML Furosemide 20 mg DAILY PO 01/09/25 10:00 01/10/25 10:25 20 MG Potassium Chloride 10 meq DAILY PO 01/09/25 10:00 01/10/25 10:24 10 MEQ Prednisone 40 mg DAILY PO 01/09/25 10:00 01/10/25 10:25 40 MG Laboratory Results Laboratory Tests 01/10/25 05:56 Chemistry Test 01/10/25 05:56 Calcium Level 9.1 mg/dL (8.7-10.4) Coagulation Test 01/10/25 11:02 Prothrombin Time 21.8 sec (9.3-11.8) H Prothrombin Time INR 2.23 (0.9-1.15) H Activated Partial Thromboplast Time 42.8 SEC (24.5-34.5) H Urinalysis Test 12/29/24 11:10 Urine Color Light-yellow (Yellow) Urine Clarity Clear (Clear) Urine pH 5.0 (5.0-9.0) Urine Specific [place] 1.011 (1.001-1.035) Urine Protein Negative (Negative) Urine Ketones Negative (Negative) Urine Blood 2+ /uL (Negative) H Urine Nitrite Negative (Negative) Urine Bilirubin Negative (Negative) Urine Urobilinogen Normal mg/dL (Negative) Urine Leukocyte Esterase Negative /uL (Negative) Urine RBC 56 /hpf (0 - 4) Urine Microscopic WBC 3 /HPF (0-5) Urine Squamous Epithelial Cells None seen /hpf (<5) Urine Bacteria None seen /hpf (None Seen) Urine Mucus Few (None Seen) Urine Glucose Normal mg/dL (Normal) Microbiology Microbiology Date/Time Source Procedure Growth Status 01/03/25 11:30 Nose MRSA Screen - Final Complete 01/02/25 10:45 Sputum Gram Stain - Final Complete 01/02/25 10:45 Sputum Respiratory Culture - Final Complete 12/30/24 01:36 Stool Clostridium difficile Toxin Assay - Final Complete 12/28/24 16:44 Blood Blood Culture - Final NO GROWTH AFTER 5 DAYS OF INCUBATION. Complete Labs and/or images reviewed: Labs reviewed by me, Image(s) reviewed by me Assessment/Plan Assessment/Plan Covering for Dr Dos Santos acute respiratory failure -multifocal pneumonia, probable Gram-positive/Gram-negative etiology -myasthenia gravis -AFib with controlled rate -COPD with exacerbation -history of PPI -acute diastolic heart failure -elevated LFTs -primary hypertension -coronary artery disease with previous stent placement Awaiting possible bronchoscopy Plan discussed with: Patient Date of Service: Jan 10, 2025 Billing Provider: PENG BELLO MD Common Visit Codes: [id number] INP/OBS CARE(HIGH) PENG BELLO MD Jan 10, 2025 12:09
--- NOTE | 2025-01-10 12:37 | DVHINCON2 ---
Date of service: Jan 09, 2025 Referring Physician Francisco Saucedo NP Reason for Consultation Acute respiratory failure History of Present Illness History Source: Patient Exam Limitations: No limitations HPI Patient is an 84-year old lady with a history of myasthenia gravis and pacemaker who presented with failure to thrive and generalized weakness. Was seen in the emergency room where chest x-ray demonstrated multifocal airspace opacities consistent with pneumonia and she was started on IV antibiotics. Pulmonology was consulted to assist in management. Home Meds Active Scripts Pantoprazole Sodium Sesquihydr (Protonix) 40 Mg Tab, 40 MG PO BID, #60 TAB Prov:USMAN UNDERWOOD MD 09/17/19 Reported Medications Warfarin Sodium (Warfarin Sodium) 2.5 Mg Tab, 2.5 MG PO DAILY for 30 Days, MG 05/10/20 Mirtazapine (REMERON) 30 Mg Tab, 15 MG PO HS, TAB 05/10/20 Clopidogrel Bisulfate (Plavix) 75 Mg Tab, 75 MG PO DAILY, TAB 05/10/20 Famotidine (PEPCID TABLET) 20 Mg Tb, 20 MG PO BID, TAB 05/10/20 Past Medical History Cardiac: No pertinent Hx Pulmonary: No pertinent Hx Central Nervous System: Other (Myasthenia gravis ) GI: No pertinent Hx Hemotology/Oncology: No pertinent Hx Hepatobiliary: No pertinent Hx Psychiatric: No pertinent Hx Musculoskeletal: No pertinent Hx Rheumotologic: No pertinent Hx Infectious Disease: No peritnent Hx ENT: No pertinent Hx Renal/: No pertinent Hx Endocrine: No pertinent Hx Dermatology: No pertinent Hx Past Surgical History: Pacemaker Family History: Cancer, CAD, Hypertension Patient Family History: FH: NH (myocardial infarction) G8 FATHER, Onset:60 years & older FH: liver cancer G8 BROTHER, Onset:Unknown FH: pancreatic cancer G8 BROTHER, Onset:Unknown Hypertension G8 MOTHER, Onset:Unknown Unknown family medical history G8 MOTHER Smoker: No Hx (Negative) Alocohol: None Drugs: None Lives with: With family Domestic Violence: Neg Review of Systems Constitutional: Weakness Ears, Nose, & Throat: No symptom reported Eyes: No symptom reported Pulmonary/Respiratory: No symptom reported Cardiovascular: No symptom reported Gastrointestinal: No symptom reported Genitourinary: No symptom reported Musculoskeletal: No symptom reported Skin: No symptom reported Psychiatric: No symptom reported Endocrine: No symptom reported Hemotologic/Lymphatic: No symptom reported H&P Exam Vital Signs Vital Signs Date Time Temp Pulse Resp B/P (MAP) Pulse Ox O2 Delivery O2 Flow Rate FiO2 01/10/25 10:25 146/69 01/10/25 10:11 69 16 100 01/10/25 10:05 Nasal Cannula* 2 28 01/10/25 09:00 97.6 97.6 General Appeara: Well developed, Well nourished, Normal Appearance Head Exam: Normal inspection Neck Exam: Normal inspection, Non-tender, Normal alignment Eye Exam: bilateral eye Normal inspection, bilateral eye PERRL, bilateral eye EOMI Ear Exam: bilateral ear Auricle normal, bilateral ear Canal normal, bilateral ear TM normal Nasal Exam: Normal inspection Mouth: Normal Inspection Pulmonary/Respiratory: Decreased breath sounds Cardiovascular/Chest: Normal inspection, Regular rate, Normal Rhythm Peripheral Pulses: 4+ Radial (R), 4+ Radial (L), 4+ Brachial (R), 4+ Brachial (L) Abdominal Exam: Normal bowel sounds Labs/Xrays Labs Test 01/10/25 11:02 01/10/25 05:56 01/08/25 05:53 01/07/25 11:30 Range/Units Prothrombin Time 21.8 H 9.3-11.8 sec Prothrombin Time INR 2.23 H 0.9-1.15 Activated Partial Thromboplast Time 42.8 H 24.5-34.5 SEC White Blood Count 10.0 # 4.4-10.8 10^3/uL Red Blood Count 4.16 4.0-5.20 10^6/uL Hemoglobin 12.4 12.2-16.2 g/dL Hematocrit 38.0 # 36.0-46.0 % Mean Corpuscular Volume 91.4 80.0-100.0 fL Mean Corpuscular Hemoglobin 29.8 28.0-32.0 pg Mean Corpuscular Hemoglobin Concent 32.7 32.0-36.0 g/dL Red Cell Distribution Width 14.9 H 11.8-14.3 % Platelet Count 403 140-450 10^3/uL Mean Platelet Volume 7.8 6.9-10.8 fL Neutrophils (%) (Auto) 76.4 37.0-80.0 % Lymphocytes (%) (Auto) 13.9 10.0-50.0 % Monocytes (%) (Auto) 8.6 0.0-12.0 % Eosinophils (%) (Auto) 0.8 0.0-7.0 % Basophils (%) (Auto) 0.3 0.0-2.0 % Neutrophils # (Auto) 7.7 1.6-8.6 10 ^3/uL Lymphocytes # (Auto) 1.4 0.4-5.4 10 ^3/uL Monocytes # (Auto) 0.9 0-1.3 10 ^3/uL Eosinophils # (Auto) 0.1 0-0.8 10 ^3/uL Basophils # (Auto) 0 0-0.2 10 ^3/uL Nucleated Red Blood Cells 0.1 % Erythrocyte Sedimentation Rate 27 H 0-20 mm/hr Sodium Level 142 136-145 mmol/L Potassium Level 3.4 L 3.5-5.1 mmol/L Chloride Level 98 98-107 mmol/L Carbon Dioxide Level 36 H 20-31 mmol/L Anion Gap 8 5-15 Blood Urea Nitrogen 14 9-23 mg/dL Creatinine 0.68 0.550-1.02 mg/dL Glomerular Filtration Rate Calc 85 >90 mL/min BUN/Creatinine Ratio 20.6 H 10.0-20.0 Serum Glucose 94 74-106 mg/dL Calcium Level 9.1 8.7-10.4 mg/dL C-Reactive Protein High Sensitivity 0.85 <1.0 mg/dL Magnesium Level 2.2 1.6-2.6 mg/dL Stool Occult Blood Negative Negative Stool Occult Blood Sample #3 Negative Test 01/05/25 06:24 01/03/25 03:00 12/31/24 05:00 12/29/24 11:10 Range/Units Total Bilirubin 1.3 H 0.2-1.0 mg/dL Aspartate Amino Transferase (AST) 41 H 13-40 U/L Alanine Aminotransferase (ALT) 37 7-40 U/L Alkaline Phosphatase 72 46-116 U/L Total Protein 6.5 5.7-8.2 g/dL Albumin 3.3 3.2-4.8 g/dL Vancomycin Level Trough 6.5 5-10 ug/mL Lactic Acid Level 1.0 0.4-2.0 mmol/L Urine Color Light-yellow Yellow Urine Clarity Clear Clear Urine pH 5.0 5.0-9.0 Urine Specific [place] 1.011 1.001-1.035 Urine Protein Negative Negative Urine Ketones Negative Negative Urine Blood 2+ H Negative /uL Urine Nitrite Negative Negative Urine Bilirubin Negative Negative Urine Urobilinogen Normal Negative mg/dL Urine Leukocyte Esterase Negative Negative /uL Urine RBC 56 0 - 4 /hpf Urine Microscopic WBC 3 0-5 /HPF Urine Squamous Epithelial Cells None seen <5 /hpf Urine Bacteria None seen None Seen /hpf Urine Mucus Few None Seen Urine Glucose Normal Normal mg/dL Test 12/29/24 09:28 12/28/24 21:38 12/28/24 19:26 12/28/24 18:50 Range/Units Random Vancomycin Level 5.5 5-10 ug/mL Influenza Type A Antigen Negative Negative Influenza Type B Antigen Negative Negative SARS-CoV-2 Antigen (Rapid) Negative NEGATIVE Blood Gas Specimen Type Arterial Blood Gas Sample Site Left radial Blood Gas Patient Temperature 37.0 Arterial Blood Date Drawn [id number] Arterial Blood pH 7.460 H 7.350-7.450 Arterial Blood Partial Pressure CO2 30.7 L 32.0-45.0 mmHg Arterial Blood Partial Pressure O2 87.6 83.0-108.0 mmHg Arterial Blood HCO3 21.3 21.0-28.0 mmol/L Arterial Blood Oxygen Saturation 96.1 94.0-98.0 % Arterial Blood Base Excess -1.5 -2.0-3.0 mmol/L Arterial Blood Oxyhemoglobin 94.8 94.0-98.0 % Arterial Blood Carboxyhemoglobin 1.1 0.5-1.5 % Arterial Blood Methemoglobin 0.3 0.0-1.5 % Kevin Test Modified Blood Gas Total Hemoglobin 13.30 12.0-16.0 g/dL Blood Gas Modality Nasal cannula FiO2 % 36.0 Troponin I High Sensitivity 8 </=34 ng/L Test 12/28/24 15:40 Range/Units Direct Bilirubin 0.6 H <0.3 mg/dL B-Type Natriuretic Peptide 313.50 0-100 pg/mL Thyroid Stimulating Hormone (TSH) 0.68 0.55-4.78 uIU/mL Microbiology Date/Time Source Procedure Growth Status 01/03/25 11:30 Nose MRSA Screen - Final Complete 01/02/25 10:45 Sputum Gram Stain - Final Complete 01/02/25 10:45 Sputum Respiratory Culture - Final Complete 12/30/24 01:36 Stool Clostridium difficile Toxin Assay - Final Complete 12/28/24 16:44 Blood Blood Culture - Final NO GROWTH AFTER 5 DAYS OF INCUBATION. Complete Assessment/Plan Plan Impression Acute hypoxemic respiratory failure Multifocal pneumonia Hx of myasthenia gravis Sepsis Patient seen and examined Events Low oxygen requirements On 2 liters nasal cannula Vital signs stable Labs and imaging reviewed Chest x-ray shows multifocal airspace opacities CT of the chest shows ground glass opacities and small right pleural effusions Vital panel negative Management Supplemental oxygen Titrate to maintain sats 90% or above Incentive spirometry Antibiotics Obtain cultures Bronchodilators Mucomyst Chest PT Monitor renal function Monitor electrolytes Supplement as needed DVT prophylaxis Plan discussed with: Patient NICK GREENE MD Jan 10, 2025 12:37
--- NOTE | 2025-01-10 12:39 | DVHPN2 ---
Progress Note - Dictate Date Seen: Jan 10, 2025 Medical Necessity Reason Pt with a Central, PICC or Fol: No vital signs Vital Sign Date Time Temp Pulse Resp B/P (MAP) Pulse Ox O2 Delivery O2 Flow Rate FiO2 01/10/25 10:25 146/69 01/10/25 10:11 69 16 100 01/10/25 10:05 Nasal Cannula* 2 28 01/10/25 09:00 97.6 97.6 Total Intake and Output 01/09/25 01/09/25 01/10/25 15:00 23:00 07:00 Intake Total 100 ml 900 ml 340 ml Output Total 725 ml 350 ml Balance 100 ml 175 ml -10 ml medications Current Medications Medications Dose Ordered Sig/Lesly Route Start Time Stop Time Status Last Admin Dose Admin Sodium Chloride 10 ml Q8HR IV 12/28/24 22:00 01/10/25 05:11 10 ML Clopidogrel Bisulfate 75 mg DAILY PO 12/29/24 10:00 01/10/25 10:25 75 MG Warfarin Sodium RX PROTOCOL PER PHARMACY PO 12/28/24 21:00 Pyridostigmine [place] 60 mg Q6HR PO 12/29/24 06:00 01/10/25 11:40 60 MG Flecainide Acetate 50 mg Q12HR PO 12/29/24 22:00 01/10/25 10:24 50 MG Mirtazapine 15 mg HS PO 12/29/24 22:00 01/09/25 21:18 15 MG Throat Lozenges 1 yuli Q2HP PRN MT 12/29/24 16:30 01/07/25 13:02 1 YULI Azithromycin 500 mg DAILY PO 12/31/24 10:00 UNV Ipratropium [place] 0.5 mg Q4HR NEB 12/30/24 18:00 01/10/25 10:05 0.5 MG Levalbuterol HCl 1.25 mg Q4HR NEB 12/30/24 18:00 01/10/25 10:05 1.25 MG Piperacillin Sod/ Tazobactam Sod 100 ml @ 25 mls/hr Q8H IV 12/31/24 18:00 01/10/25 10:24 25 MLS/HR Guaifenesin 200 mg Q4HP PRN PO 12/31/24 11:45 01/08/25 06:42 200 MG Acetylcysteine 200 mg Q8HR NEB 12/31/24 14:00 01/10/25 06:09 200 MG Acetaminophen 650 mg Q4HP PRN PO 12/31/24 12:30 01/10/25 01:42 650 MG Enteral Nutritional Formula 240 ml TIDWM PO 01/02/25 18:00 01/10/25 08:00 240 ML Pantoprazole Sodium 40 mg DAILY@0600 PO 01/06/25 06:00 01/10/25 05:33 40 MG Nystatin 5 ml QID MT 01/07/25 12:00 01/10/25 11:40 5 ML Furosemide 20 mg DAILY PO 01/09/25 10:00 01/10/25 10:25 20 MG Potassium Chloride 10 meq DAILY PO 01/09/25 10:00 01/10/25 10:24 10 MEQ Prednisone 40 mg DAILY PO 01/09/25 10:00 01/10/25 10:25 40 MG laboratory and microbiology Laboratory Tests 01/10/25 05:56 Test 01/10/25 05:56 Range/Units Serum Glucose 94 74-106 mg/dL Assessment/Plan Impression Acute hypoxemic respiratory failure Multifocal pneumonia Hx of myasthenia gravis Sepsis Patient seen and examined Events Low oxygen requirements On 2 liters nasal cannula No acute events Labs and imaging reviewed Chest x-ray shows multifocal airspace opacities CT of the chest shows ground glass opacities and small right pleural effusions Vital panel negative Management Supplemental oxygen Titrate to maintain sats 90% or above Incentive spirometry Continue antibiotics F/u cultures Bronchodilators Mucomyst Chest PT Monitor renal function Monitor electrolytes Supplement as needed DVT prophylaxis Dietary Evaluation Review Comments: Follow Cardiac diet, Check A1C Encourage high protein food, Monitor PO intake to meet at least 75% of her needs Wt management upon d/C Expected Outcomes/Goals: Recover from PNA, and sepsis, gradual wt loss Plan discussed with: Patient NICK GREENE MD Jan 10, 2025 12:39
[2025-01-10] MEDS: WARFARIN SODIUM 2.5 MG TAB PO ONE (17:08)
[2025-01-11] VITALS (18 sets, daily range): BP systolic 128–133; BP diastolic 56–80; PULSE 63–105; RESP 14–19; TEMP 96.6–98; O2SAT 94–100
[2025-01-11 06:23] LABS: Hematocrit 36.3 % (36.0-46.0); Hemoglobin 12.1 g/dL (12.2-16.2); Mean Corpuscular Hemoglobin 29.5 pg (28.0-32.0); Mean Corpuscular Volume 88.3 fL (80.0-100.0); Nucleated Red Blood Cells % 0.0 %
[2025-01-11 06:39] LABS: INR 1.98 (0.9-1.15); Partial Thromboplastin Time 39.9 SEC (24.5-34.5); Prothrombin Time 19.6 sec (9.3-11.8)
--- NOTE | 2025-01-11 10:51 | DVHPN2 ---
Reviewed: Care Plan, H&P Changes from previous H/P or p: No Changes General: Per HPI Objective Vitals Vital Signs Date Time Temp Pulse Resp B/P (MAP) Pulse Ox O2 Delivery O2 Flow Rate FiO2 01/11/25 10:14 134/62 01/11/25 09:53 71 16 99 01/11/25 09:47 Nasal Cannula 2.0 01/11/25 09:47 28 01/11/25 09:00 97.2 97.2 Intake/Output Intake and Output 01/11/25 07:00 Intake Total 1240 ml Output Total 500 ml Balance 740 ml Intake Oral 1140 ml IV Total 100 ml Output Urine Total 500 ml # Voids 4 General Appearance: Alert, Oriented X3, Cooperative, mild distress HEENT: Atraumatic, PERRLA Cardiovascular: Normal S1, Normal S2 Abdomen: Soft, No tenderness, No hepatospenomegaly Musculoskeletal: Normal sensory function, Normal motor function, Other (Deconditioned) Skin: Dry, Intact Psych/Mental Status: Mental status NL, Mood NL Medications Current Medications Medications Dose Ordered Sig/Lesly Route Start Time Stop Time Status Last Admin Dose Admin Sodium Chloride 10 ml Q8HR IV 12/28/24 22:00 01/11/25 05:08 10 ML Clopidogrel Bisulfate 75 mg DAILY PO 12/29/24 10:00 01/11/25 10:15 75 MG Warfarin Sodium RX PROTOCOL PER PHARMACY PO 12/28/24 21:00 Pyridostigmine [place] 60 mg Q6HR PO 12/29/24 06:00 01/11/25 05:13 60 MG Flecainide Acetate 50 mg Q12HR PO 12/29/24 22:00 01/11/25 10:15 50 MG Mirtazapine 15 mg HS PO 12/29/24 22:00 01/10/25 22:52 15 MG Throat Lozenges 1 yuli Q2HP PRN MT 12/29/24 16:30 01/07/25 13:02 1 YULI Azithromycin 500 mg DAILY PO 12/31/24 10:00 UNV Ipratropium [place] 0.5 mg Q4HR NEB 12/30/24 18:00 01/11/25 09:47 0.5 MG Levalbuterol HCl 1.25 mg Q4HR NEB 12/30/24 18:00 01/11/25 09:47 1.25 MG Piperacillin Sod/ Tazobactam Sod 100 ml @ 25 mls/hr Q8H IV 12/31/24 18:00 01/11/25 10:13 25 MLS/HR Guaifenesin 200 mg Q4HP PRN PO 12/31/24 11:45 01/08/25 06:42 200 MG Acetylcysteine 200 mg Q8HR NEB 12/31/24 14:00 01/11/25 06:13 200 MG Acetaminophen 650 mg Q4HP PRN PO 12/31/24 12:30 01/11/25 00:43 650 MG Enteral Nutritional Formula 240 ml TIDWM PO 01/02/25 18:00 01/11/25 08:00 240 ML Pantoprazole Sodium 40 mg DAILY@0600 PO 01/06/25 06:00 01/11/25 05:13 40 MG Nystatin 5 ml QID MT 01/07/25 12:00 01/11/25 05:13 5 ML Furosemide 20 mg DAILY PO 01/09/25 10:00 01/11/25 10:14 20 MG Potassium Chloride 10 meq DAILY PO 01/09/25 10:00 01/11/25 10:14 10 MEQ Prednisone 40 mg DAILY PO 01/09/25 10:00 01/11/25 10:14 40 MG Laboratory Results Laboratory Tests 01/10/25 05:56 01/11/25 05:12 Coagulation Test 01/10/25 11:02 01/11/25 05:12 Prothrombin Time 21.8 sec (9.3-11.8) H 19.6 sec (9.3-11.8) H Prothrombin Time INR 2.23 (0.9-1.15) H 1.98 (0.9-1.15) H Activated Partial Thromboplast Time 42.8 SEC (24.5-34.5) H 39.9 SEC (24.5-34.5) H Urinalysis Test 12/29/24 11:10 Urine Color Light-yellow (Yellow) Urine Clarity Clear (Clear) Urine pH 5.0 (5.0-9.0) Urine Specific [place] 1.011 (1.001-1.035) Urine Protein Negative (Negative) Urine Ketones Negative (Negative) Urine Blood 2+ /uL (Negative) H Urine Nitrite Negative (Negative) Urine Bilirubin Negative (Negative) Urine Urobilinogen Normal mg/dL (Negative) Urine Leukocyte Esterase Negative /uL (Negative) Urine RBC 56 /hpf (0 - 4) Urine Microscopic WBC 3 /HPF (0-5) Urine Squamous Epithelial Cells None seen /hpf (<5) Urine Bacteria None seen /hpf (None Seen) Urine Mucus Few (None Seen) Urine Glucose Normal mg/dL (Normal) Microbiology Microbiology Date/Time Source Procedure Growth Status 01/03/25 11:30 Nose MRSA Screen - Final Complete 01/02/25 10:45 Sputum Gram Stain - Final Complete 01/02/25 10:45 Sputum Respiratory Culture - Final Complete 12/30/24 01:36 Stool Clostridium difficile Toxin Assay - Final Complete 12/28/24 16:44 Blood Blood Culture - Final NO GROWTH AFTER 5 DAYS OF INCUBATION. Complete Labs and/or images reviewed: Labs reviewed by me, Image(s) reviewed by me Assessment/Plan Assessment/Plan Covering for Dr Dos Santos acute respiratory failure -multifocal pneumonia, probable Gram-positive/Gram-negative etiology -myasthenia gravis -AFib with controlled rate -COPD with exacerbation -history of PPI -acute diastolic heart failure -elevated LFTs -primary hypertension -coronary artery disease with previous stent placement Time Spent 50 minutes Awaiting possible bronchoscopy Plan discussed with: Patient Date of Service: Jan 11, 2025 Billing Provider: PENG BELLO MD Common Visit Codes: [id number] INP/OBS CARE(HIGH) PENG BELLO MD Jan 11, 2025 10:51
[2025-01-11] MEDS: POTASSIUM CHL 20 Meq TABLET PO ONE (12:12)
[2025-01-11] MEDS: WARFARIN SODIUM 2.5 MG TAB PO ONE (17:29)
--- NOTE | 2025-01-11 17:49 | DVHPN2 ---
Progress Note - Dictate Date Seen: Jan 11, 2025 Medical Necessity Reason Pt with a Central, PICC or Fol: No vital signs Vital Sign Date Time Temp Pulse Resp B/P (MAP) Pulse Ox O2 Delivery O2 Flow Rate FiO2 01/11/25 16:51 98.0 66 19 128/57 (80) 98 98.0 01/11/25 13:44 Nasal Cannula* 2 28 Total Intake and Output 01/10/25 01/10/25 01/11/25 15:00 23:00 07:00 Intake Total 100 ml 800 ml 340 ml Output Total 500 ml Balance 100 ml 800 ml -160 ml medications Current Medications Medications Dose Ordered Sig/Lesly Route Start Time Stop Time Status Last Admin Dose Admin Sodium Chloride 10 ml Q8HR IV 12/28/24 22:00 01/11/25 14:00 10 ML Clopidogrel Bisulfate 75 mg DAILY PO 12/29/24 10:00 01/11/25 10:15 75 MG Warfarin Sodium RX PROTOCOL PER PHARMACY PO 12/28/24 21:00 Pyridostigmine [place] 60 mg Q6HR PO 12/29/24 06:00 01/11/25 17:29 60 MG Flecainide Acetate 50 mg Q12HR PO 12/29/24 22:00 01/11/25 10:15 50 MG Mirtazapine 15 mg HS PO 12/29/24 22:00 01/10/25 22:52 15 MG Throat Lozenges 1 yuli Q2HP PRN MT 12/29/24 16:30 01/07/25 13:02 1 YULI Azithromycin 500 mg DAILY PO 12/31/24 10:00 UNV Ipratropium [place] 0.5 mg Q4HR NEB 12/30/24 18:00 01/11/25 13:44 0.5 MG Levalbuterol HCl 1.25 mg Q4HR NEB 12/30/24 18:00 01/11/25 13:44 1.25 MG Piperacillin Sod/ Tazobactam Sod 100 ml @ 25 mls/hr Q8H IV 12/31/24 18:00 01/11/25 17:29 25 MLS/HR Guaifenesin 200 mg Q4HP PRN PO 12/31/24 11:45 01/08/25 06:42 200 MG Acetylcysteine 200 mg Q8HR NEB 12/31/24 14:00 01/11/25 13:44 200 MG Acetaminophen 650 mg Q4HP PRN PO 12/31/24 12:30 01/11/25 00:43 650 MG Enteral Nutritional Formula 240 ml TIDWM PO 01/02/25 18:00 01/11/25 12:13 240 ML Pantoprazole Sodium 40 mg DAILY@0600 PO 01/06/25 06:00 01/11/25 05:13 40 MG Nystatin 5 ml QID MT 01/07/25 12:00 01/11/25 17:29 5 ML Furosemide 20 mg DAILY PO 01/09/25 10:00 01/11/25 10:14 20 MG Potassium Chloride 10 meq DAILY PO 01/09/25 10:00 01/11/25 10:14 10 MEQ Prednisone 40 mg DAILY PO 01/09/25 10:00 01/11/25 10:14 40 MG laboratory and microbiology Laboratory Tests 01/11/25 05:12 01/10/25 05:56 Test 01/10/25 05:56 Range/Units Serum Glucose 94 74-106 mg/dL Assessment/Plan Impression Acute hypoxemic respiratory failure Multifocal pneumonia Hx of myasthenia gravis Sepsis Patient seen and examined Events Low oxygen requirements On 2 liters nasal cannula No acute events Labs and imaging reviewed Management Supplemental oxygen Titrate to maintain sats 90% or above Incentive spirometry Continue antibiotics F/u cultures Bronchodilators Mucomyst Chest PT Monitor renal function Monitor electrolytes Supplement as needed DVT prophylaxis Dietary Evaluation Review Comments: Follow Cardiac diet, Check A1C Encourage high protein food, Monitor PO intake to meet at least 75% of her needs Wt management upon d/C Expected Outcomes/Goals: Recover from PNA, and sepsis, gradual wt loss Plan discussed with: Patient NICK GREENE MD Jan 11, 2025 17:49
[2025-01-12] VITALS (22 sets, daily range): BP systolic 116–147; BP diastolic 55–64; PULSE 65–79; RESP 14–18; TEMP 96.7–99.2; O2SAT 88–100
[2025-01-12 07:31] LABS: Hematocrit 36.4 % (36.0-46.0); Hemoglobin 12.5 g/dL (12.2-16.2); Mean Corpuscular Hemoglobin 32.0 pg (28.0-32.0); Mean Corpuscular Volume 93.5 fL (80.0-100.0); Nucleated Red Blood Cells % 0.2 %
[2025-01-12 07:34] LABS: INR 2.31 (0.9-1.15); Partial Thromboplastin Time 41.1 SEC (24.5-34.5); Prothrombin Time 22.5 sec (9.3-11.8)
[2025-01-12 07:43] LABS: Alanine Aminotransferase 25 U/L (7-40); Alkaline Phosphatase 67 U/L (46-116); Anion Gap 7 (5-15); BUN/Creatinine Ratio 29.6 (10.0-20.0); Blood Urea Nitrogen 21 mg/dL (9-23); Calcium 9.0 mg/dL (8.7-10.4); Chloride 101 mmol/L (98-107); Glucose 88 mg/dL (74-106); Potassium 3.8 mmol/L (3.5-5.1); Sodium 142 mmol/L (136-145); Total Protein 5.7 g/dL (5.7-8.2)
[2025-01-12 07:44] LABS: Bilirubin, Total 1.0 mg/dL (0.2-1.0)
[2025-01-12 07:46] LABS: Albumin 3.1 g/dL (3.2-4.8); Carbon Dioxide 34 mmol/L (20-31)
--- NOTE | 2025-01-12 11:29 | DVHPN2 ---
Progress Note Date Seen: Jan 12, 2025 Medical Necessity Reason Pt with a Central, PICC or Fol: No Subjective Patient reports: No new complaints Review of Systems: HEENT:Normal, CVS:Normal, RESPIRATORY:Normal, GI:Normal, :Normal, MSK:Normal, NEURO:Normal Objective vital signs Vital Sign Date Time Temp Pulse Resp B/P (MAP) Pulse Ox O2 Delivery O2 Flow Rate FiO2 01/12/25 10:21 66 14 100 01/12/25 10:03 147/64 01/12/25 09:00 98.0 98.0 01/12/25 06:09 Nasal Cannula* 2 28 Total Intake and Output 01/11/25 01/11/25 01/12/25 15:00 23:00 07:00 Intake Total 100 ml 1300 ml 240 ml Output Total 700 ml 200 ml Balance 100 ml 600 ml 40 ml medications Current Medications Medications Dose Ordered Sig/Lesly Route Start Time Stop Time Status Last Admin Dose Admin Sodium Chloride 10 ml Q8HR IV 12/28/24 22:00 01/12/25 05:03 10 ML Clopidogrel Bisulfate 75 mg DAILY PO 12/29/24 10:00 01/12/25 10:04 75 MG Warfarin Sodium RX PROTOCOL PER PHARMACY PO 12/28/24 21:00 Pyridostigmine [place] 60 mg Q6HR PO 12/29/24 06:00 01/12/25 05:05 60 MG Flecainide Acetate 50 mg Q12HR PO 12/29/24 22:00 01/12/25 10:02 50 MG Mirtazapine 15 mg HS PO 12/29/24 22:00 01/11/25 21:30 15 MG Throat Lozenges 1 yuli Q2HP PRN MT 12/29/24 16:30 01/07/25 13:02 1 YULI Azithromycin 500 mg DAILY PO 12/31/24 10:00 UNV Ipratropium [place] 0.5 mg Q4HR NEB 12/30/24 18:00 01/12/25 10:09 0.5 MG Levalbuterol HCl 1.25 mg Q4HR NEB 12/30/24 18:00 01/12/25 10:09 1.25 MG Guaifenesin 200 mg Q4HP PRN PO 12/31/24 11:45 01/08/25 06:42 200 MG Acetylcysteine 200 mg Q8HR NEB 12/31/24 14:00 01/12/25 06:06 200 MG Acetaminophen 650 mg Q4HP PRN PO 12/31/24 12:30 01/12/25 00:23 650 MG Enteral Nutritional Formula 240 ml TIDWM PO 01/02/25 18:00 01/12/25 10:04 240 ML Pantoprazole Sodium 40 mg DAILY@0600 PO 01/06/25 06:00 01/12/25 05:06 40 MG Nystatin 5 ml QID MT 01/07/25 12:00 01/12/25 05:05 5 ML Furosemide 20 mg DAILY PO 01/09/25 10:00 01/12/25 10:03 20 MG Potassium Chloride 10 meq DAILY PO 01/09/25 10:00 01/12/25 10:04 10 MEQ Prednisone 40 mg DAILY PO 01/09/25 10:00 01/12/25 10:04 40 MG Examination: GENERAL:Normal, HEENT:Normal, NECK:Normal, LUNGS:Normal, LUNGS:Abnormal (on oxygen), CVS:Normal, ABDOMEN:Normal, MSK:Normal, SKIN:Normal, NEURO:Normal, :Normal laboratory and microbiology Laboratory Tests 01/12/25 05:14 Test 01/12/25 05:14 Range/Units Serum Glucose 88 74-106 mg/dL Microbiology Date/Time Source Procedure Growth Status 01/03/25 11:30 Nose MRSA Screen - Final Complete 01/02/25 10:45 Sputum Gram Stain - Final Complete 01/02/25 10:45 Sputum Respiratory Culture - Final Complete 12/30/24 01:36 Stool Clostridium difficile Toxin Assay - Final Complete 12/28/24 16:44 Blood Blood Culture - Final NO GROWTH AFTER 5 DAYS OF INCUBATION. Complete Problem List/Assessment/Plan Problem List/Assessment/Plan #1 acute resp failure: cont oxygen #2 right pneumonia- gram positive/neg with sepsis: dc iv antibiotics, xray in am #3 myasthenia gravis s/p thymectomy: cont meds #4 a fib with secondary hypercoagulable state: cont meds, coumadin #5 copd with exacerbation: cont meds, bronchodilators #6 s/p pacer #7 acute diastolic heart failure: echo, lasix #8 transaminitis #9 htn #10 cad s/p stent advance care planning- full code- time spent 18 mins Plan discussed with: Patient Dietary Evaluation Review Comments: Follow Cardiac diet, Check A1C Encourage high protein food, Monitor PO intake to meet at least 75% of her needs Wt management upon d/C Expected Outcomes/Goals: Recover from PNA, and sepsis, gradual wt loss Date of Service: Jan 12, 2025 Billing Provider: JENNIFER DANIELSON MD Common Visit Codes: [id number] INP/OBS CARE(HIGH) JENNIFER DANIELSON MD Jan 12, 2025 11:29
[2025-01-12] MEDS: WARFARIN SODIUM 2.5 MG TAB PO ONE (17:22)
--- NOTE | 2025-01-12 17:54 | DVHPN2 ---
Progress Note - Dictate Date Seen: Jan 12, 2025 Medical Necessity Reason Pt with a Central, PICC or Fol: No vital signs Vital Sign Date Time Temp Pulse Resp B/P (MAP) Pulse Ox O2 Delivery O2 Flow Rate FiO2 01/12/25 17:00 99.2 70 16 120/62 (81) 96 99.2 01/12/25 13:52 2.0 28 01/12/25 10:00 Nasal Cannula Total Intake and Output 01/11/25 01/11/25 01/12/25 15:00 23:00 07:00 Intake Total 100 ml 1300 ml 240 ml Output Total 700 ml 200 ml Balance 100 ml 600 ml 40 ml medications Current Medications Medications Dose Ordered Sig/Lesly Route Start Time Stop Time Status Last Admin Dose Admin Sodium Chloride 10 ml Q8HR IV 12/28/24 22:00 01/12/25 13:33 10 ML Clopidogrel Bisulfate 75 mg DAILY PO 12/29/24 10:00 01/12/25 10:04 75 MG Warfarin Sodium RX PROTOCOL PER PHARMACY PO 12/28/24 21:00 Pyridostigmine [place] 60 mg Q6HR PO 12/29/24 06:00 01/12/25 17:25 60 MG Flecainide Acetate 50 mg Q12HR PO 12/29/24 22:00 01/12/25 10:02 50 MG Mirtazapine 15 mg HS PO 12/29/24 22:00 01/11/25 21:30 15 MG Throat Lozenges 1 yuli Q2HP PRN MT 12/29/24 16:30 01/07/25 13:02 1 YULI Azithromycin 500 mg DAILY PO 12/31/24 10:00 UNV Ipratropium [place] 0.5 mg Q4HR NEB 12/30/24 18:00 01/12/25 14:17 0.5 MG Levalbuterol HCl 1.25 mg Q4HR NEB 12/30/24 18:00 01/12/25 14:17 1.25 MG Guaifenesin 200 mg Q4HP PRN PO 12/31/24 11:45 01/08/25 06:42 200 MG Acetylcysteine 200 mg Q8HR NEB 12/31/24 14:00 01/12/25 14:17 200 MG Acetaminophen 650 mg Q4HP PRN PO 12/31/24 12:30 01/12/25 00:23 650 MG Enteral Nutritional Formula 240 ml TIDWM PO 01/02/25 18:00 01/12/25 17:26 240 ML Pantoprazole Sodium 40 mg DAILY@0600 PO 01/06/25 06:00 01/12/25 05:06 40 MG Nystatin 5 ml QID MT 01/07/25 12:00 01/12/25 17:23 5 ML Furosemide 20 mg DAILY PO 01/09/25 10:00 01/12/25 10:03 20 MG Potassium Chloride 10 meq DAILY PO 01/09/25 10:00 01/12/25 10:04 10 MEQ Prednisone 40 mg DAILY PO 01/09/25 10:00 01/12/25 10:04 40 MG laboratory and microbiology Laboratory Tests 01/12/25 05:14 Test 01/12/25 05:14 Range/Units Serum Glucose 88 74-106 mg/dL Assessment/Plan Impression Acute hypoxemic respiratory failure Multifocal pneumonia Hx of myasthenia gravis Sepsis Patient seen and examined Events Low oxygen requirements On 2 liters nasal cannula Continues to improve Labs and imaging reviewed Management Supplemental oxygen Titrate to maintain sats 90% or above Incentive spirometry Continue antibiotics F/u cultures Bronchodilators Mucomyst Chest PT Monitor renal function Monitor electrolytes Supplement as needed May require placement DVT prophylaxis Dietary Evaluation Review Comments: Follow Cardiac diet, Check A1C Encourage high protein food, Monitor PO intake to meet at least 75% of her needs Wt management upon d/C Expected Outcomes/Goals: Recover from PNA, and sepsis, gradual wt loss Plan discussed with: Patient NICK GREENE MD Jan 12, 2025 17:54
[2025-01-13] VITALS (17 sets, daily range): BP systolic 117–144; BP diastolic 52–65; PULSE 68–80; RESP 14–18; TEMP 97.8–98.6; O2SAT 95–100
--- NOTE | 2025-01-13 06:21 | DVH ---
MEDICAL RECORDS NUMBER: [id number] PROCEDURE: XY CHEST PORTABLE DATE: 01/13/2025 05:45 AM HISTORY: chf Views:1 COMPARISON: XY CHEST PORTABLE on DOS: 01/09/25, XY CHEST PORTABLE on DOS: 01/06/25, CT CHEST WITHOUT CONTRAST on DOS: 01/01/25, XY CHEST PORTABLE on DOS: 01/01/25, XY CHEST PORTABLE on DOS: 12/30/24 FINDINGS/IMPRESSION: Lungs: Mild bilateral infiltrates are suspected of the lungs. No consolidation or effusion is seen. Underlying chronic lung changes are suspected. Mediastinum: Mediastinal structures appear unremarkable.A LEFT-sided pacing device is noted. No pneumothorax is seen. Skeletal: The skeletal structures appear unremarkable.
[2025-01-13 06:38] LABS: Hematocrit 36.2 % (36.0-46.0); Hemoglobin 12.3 g/dL (12.2-16.2); Mean Corpuscular Hemoglobin 31.9 pg (28.0-32.0); Mean Corpuscular Volume 93.8 fL (80.0-100.0); Nucleated Red Blood Cells % 0.1 %
[2025-01-13 06:48] LABS: INR 2.5 (0.9-1.15); Partial Thromboplastin Time 36.8 SEC (24.5-34.5); Prothrombin Time 24.2 sec (9.3-11.8)
[2025-01-13] MEDS: FUROSEMIDE 20 MG TAB PO ONE (10:45)
--- NOTE | 2025-01-13 10:51 | DVHPN2 ---
Progress Note Date Seen: Jan 13, 2025 Medical Necessity Reason Pt with a Central, PICC or Fol: No Subjective Patient reports: No new complaints Review of Systems: HEENT:Normal, CVS:Normal, RESPIRATORY:Normal, GI:Normal, :Normal, MSK:Normal, NEURO:Normal Objective vital signs Vital Sign Date Time Temp Pulse Resp B/P (MAP) Pulse Ox O2 Delivery O2 Flow Rate FiO2 01/13/25 10:24 71 14 100 01/13/25 10:02 128/65 01/13/25 10:00 Nasal Cannula 4.0 01/13/25 10:00 36 01/13/25 08:44 97.8 97.8 Total Intake and Output 01/12/25 01/12/25 01/13/25 15:00 23:00 07:00 Intake Total 498 ml 1100 ml 375 ml Output Total 550 ml 1100 ml Balance 498 ml 550 ml -725 ml medications Current Medications Medications Dose Ordered Sig/Lesly Route Start Time Stop Time Status Last Admin Dose Admin Sodium Chloride 10 ml Q8HR IV 12/28/24 22:00 01/13/25 05:30 10 ML Clopidogrel Bisulfate 75 mg DAILY PO 12/29/24 10:00 01/13/25 10:02 75 MG Warfarin Sodium RX PROTOCOL PER PHARMACY PO 12/28/24 21:00 Pyridostigmine [place] 60 mg Q6HR PO 12/29/24 06:00 01/13/25 05:26 60 MG Flecainide Acetate 50 mg Q12HR PO 12/29/24 22:00 01/13/25 10:02 50 MG Mirtazapine 15 mg HS PO 12/29/24 22:00 01/12/25 21:51 15 MG Throat Lozenges 1 yuli Q2HP PRN MT 12/29/24 16:30 01/07/25 13:02 1 YULI Azithromycin 500 mg DAILY PO 12/31/24 10:00 UNV Ipratropium [place] 0.5 mg Q4HR NEB 12/30/24 18:00 01/13/25 10:13 0.5 MG Levalbuterol HCl 1.25 mg Q4HR NEB 12/30/24 18:00 01/13/25 10:13 1.25 MG Guaifenesin 200 mg Q4HP PRN PO 12/31/24 11:45 01/08/25 06:42 200 MG Acetylcysteine 200 mg Q8HR NEB 12/31/24 14:00 01/13/25 06:22 200 MG Acetaminophen 650 mg Q4HP PRN PO 12/31/24 12:30 01/13/25 00:17 650 MG Enteral Nutritional Formula 240 ml TIDWM PO 01/02/25 18:00 01/12/25 17:26 240 ML Pantoprazole Sodium 40 mg DAILY@0600 PO 01/06/25 06:00 01/13/25 05:26 40 MG Nystatin 5 ml QID MT 01/07/25 12:00 01/13/25 05:26 5 ML Furosemide 20 mg DAILY PO 01/09/25 10:00 01/13/25 10:02 20 MG Potassium Chloride 10 meq DAILY PO 01/09/25 10:00 01/13/25 10:02 10 MEQ Prednisone 40 mg DAILY PO 01/09/25 10:00 01/13/25 10:01 40 MG Examination: GENERAL:Normal, HEENT:Normal, NECK:Normal, LUNGS:Normal, LUNGS:Abnormal (ON OXYGEN), CVS:Normal, ABDOMEN:Normal, MSK:Normal, SKIN:Normal, NEURO:Normal, :Normal laboratory and microbiology Laboratory Tests 01/13/25 05:50 01/12/25 05:14 Test 01/12/25 05:14 Range/Units Serum Glucose 88 74-106 mg/dL Microbiology Date/Time Source Procedure Growth Status 01/03/25 11:30 Nose MRSA Screen - Final Complete 01/02/25 10:45 Sputum Gram Stain - Final Complete 01/02/25 10:45 Sputum Respiratory Culture - Final Complete 12/30/24 01:36 Stool Clostridium difficile Toxin Assay - Final Complete 12/28/24 16:44 Blood Blood Culture - Final NO GROWTH AFTER 5 DAYS OF INCUBATION. Complete Problem List/Assessment/Plan Problem List/Assessment/Plan #1 acute resp failure: cont oxygen #2 right pneumonia- gram positive/neg with sepsis: dc iv antibiotics, xray in am #3 myasthenia gravis s/p thymectomy: cont meds #4 a fib with secondary hypercoagulable state: cont meds, coumadin #5 copd with exacerbation: cont meds, bronchodilators #6 s/p pacer #7 acute diastolic heart failure: echo, lasix #8 transaminitis #9 htn #10 cad s/p stent advance care planning- full code- time spent 18 mins Plan discussed with: Patient My Orders My Orders Orders - JENNIFER DANIELSON MD Procedure Category Date Status Time * [employer] CONS 01/12/25 Transmitted Consult Chest Portable XY 01/13/25 Resulted 06:00 Dietary Evaluation Review Comments: Follow Cardiac diet, Check A1C Encourage high protein food, Monitor PO intake to meet at least 75% of her needs Wt management upon d/C Expected Outcomes/Goals: Recover from PNA, and sepsis, gradual wt loss Date of Service: Jan 13, 2025 Billing Provider: JENNIFER DANIELSON MD Common Visit Codes: [id number] INP/OBS CARE(HIGH) JENNIFER DANIELSON MD Jan 13, 2025 10:51
--- NOTE | 2025-01-13 15:03 | DVHPN2 ---
Progress Note - Dictate Date Seen: Jan 13, 2025 Medical Necessity Reason Pt with a Central, PICC or Fol: No vital signs Vital Sign Date Time Temp Pulse Resp B/P (MAP) Pulse Ox O2 Delivery O2 Flow Rate FiO2 01/13/25 14:17 75 14 100 01/13/25 13:00 98.1 140/64 (89) 98.1 01/13/25 10:00 Nasal Cannula 4.0 01/13/25 10:00 36 Total Intake and Output 01/12/25 01/12/25 01/13/25 15:00 23:00 07:00 Intake Total 498 ml 1100 ml 375 ml Output Total 550 ml 1100 ml Balance 498 ml 550 ml -725 ml medications Current Medications Medications Dose Ordered Sig/Lesly Route Start Time Stop Time Status Last Admin Dose Admin Sodium Chloride 10 ml Q8HR IV 12/28/24 22:00 01/13/25 13:49 10 ML Clopidogrel Bisulfate 75 mg DAILY PO 12/29/24 10:00 01/13/25 10:02 75 MG Warfarin Sodium RX PROTOCOL PER PHARMACY PO 12/28/24 21:00 Pyridostigmine [place] 60 mg Q6HR PO 12/29/24 06:00 01/13/25 12:05 60 MG Flecainide Acetate 50 mg Q12HR PO 12/29/24 22:00 01/13/25 10:02 50 MG Mirtazapine 15 mg HS PO 12/29/24 22:00 01/12/25 21:51 15 MG Throat Lozenges 1 yuli Q2HP PRN MT 12/29/24 16:30 01/07/25 13:02 1 YLUI Azithromycin 500 mg DAILY PO 12/31/24 10:00 UNV Ipratropium [place] 0.5 mg Q4HR NEB 12/30/24 18:00 01/13/25 14:02 0.5 MG Levalbuterol HCl 1.25 mg Q4HR NEB 12/30/24 18:00 01/13/25 14:02 1.25 MG Guaifenesin 200 mg Q4HP PRN PO 12/31/24 11:45 01/08/25 06:42 200 MG Acetylcysteine 200 mg Q8HR NEB 12/31/24 14:00 01/13/25 14:02 200 MG Acetaminophen 650 mg Q4HP PRN PO 12/31/24 12:30 01/13/25 00:17 650 MG Enteral Nutritional Formula 240 ml TIDWM PO 01/02/25 18:00 01/13/25 12:05 240 ML Pantoprazole Sodium 40 mg DAILY@0600 PO 01/06/25 06:00 01/13/25 05:26 40 MG Nystatin 5 ml QID MT 01/07/25 12:00 01/13/25 12:05 5 ML Furosemide 20 mg DAILY PO 01/09/25 10:00 01/13/25 10:02 20 MG Potassium Chloride 10 meq DAILY PO 01/09/25 10:00 01/13/25 10:02 10 MEQ Prednisone 30 mg DAILY PO 01/14/25 10:00 laboratory and microbiology Laboratory Tests 01/13/25 05:50 01/12/25 05:14 Test 01/12/25 05:14 Range/Units Serum Glucose 88 74-106 mg/dL Assessment/Plan Impression Acute hypoxemic respiratory failure Multifocal pneumonia Hx of myasthenia gravis Sepsis Patient seen and examined Events Low oxygen requirements On 2 liters nasal cannula No distress Labs and imaging reviewed Management Supplemental oxygen Titrate to maintain sats 90% or above Incentive spirometry Continue antibiotics F/u cultures Bronchodilators Mucomyst Chest PT Monitor renal function Monitor electrolytes Supplement as needed Okay to discharge from pulmonary standpoint DVT prophylaxis Dietary Evaluation Review Comments: Follow Cardiac diet, Check A1C Encourage high protein food, Monitor PO intake to meet at least 75% of her needs Wt management upon d/C Expected Outcomes/Goals: Recover from PNA, and sepsis, gradual wt loss Plan discussed with: Patient NICK GREENE MD Jan 13, 2025 15:03
--- NOTE | 2025-01-13 15:58 | DVHDS2 ---
Discharge Summary Date of Admission Dec 28, 2024 at 20:51 Date of Discharge: Jan 13, 2025 Labs/Diagnostic Data: Laboratory Results Test 01/13/25 05:50 01/12/25 05:14 01/10/25 05:56 01/08/25 05:53 White Blood Count 9.5 10^3/uL (4.4-10.8) Red Blood Count 3.85 10^6/uL (4.0-5.20) Hemoglobin 12.3 g/dL (12.2-16.2) Hematocrit 36.2 % (36.0-46.0) Mean Corpuscular Volume 93.8 fL (80.0-100.0) Mean Corpuscular Hemoglobin 31.9 pg (28.0-32.0) Mean Corpuscular Hemoglobin Concent 34.0 g/dL (32.0-36.0) Red Cell Distribution Width 15.2 % (11.8-14.3) Platelet Count 390 10^3/uL (140-450) Mean Platelet Volume 8.0 fL (6.9-10.8) Neutrophils (%) (Auto) 73.1 % (37.0-80.0) Lymphocytes (%) (Auto) 16.2 % (10.0-50.0) Monocytes (%) (Auto) 10.0 % (0.0-12.0) Eosinophils (%) (Auto) 0.6 % (0.0-7.0) Basophils (%) (Auto) 0.1 % (0.0-2.0) Neutrophils # (Auto) 7.0 10 ^3/uL (1.6-8.6) Lymphocytes # (Auto) 1.5 10 ^3/uL (0.4-5.4) Monocytes # (Auto) 0.9 10 ^3/uL (0-1.3) Eosinophils # (Auto) 0.1 10 ^3/uL (0-0.8) Basophils # (Auto) 0 10 ^3/uL (0-0.2) Nucleated Red Blood Cells 0.1 % Prothrombin Time 24.2 sec (9.3-11.8) Prothrombin Time INR 2.50 (0.9-1.15) Activated Partial Thromboplast Time 36.8 SEC (24.5-34.5) Creatinine 0.75 mg/dL (0.550-1.02) Glomerular Filtration Rate Calc 77 mL/min (>90) Sodium Level 142 mmol/L (136-145) Potassium Level 3.8 mmol/L (3.5-5.1) Chloride Level 101 mmol/L (98-107) Carbon Dioxide Level 34 mmol/L (20-31) Anion Gap 7 (5-15) Blood Urea Nitrogen 21 mg/dL (9-23) BUN/Creatinine Ratio 29.6 (10.0-20.0) Serum Glucose 88 mg/dL (74-106) Calcium Level 9.0 mg/dL (8.7-10.4) Total Bilirubin 1.0 mg/dL (0.2-1.0) Aspartate Amino Transferase (AST) 18 U/L (13-40) Alanine Aminotransferase (ALT) 25 U/L (7-40) Alkaline Phosphatase 67 U/L (46-116) Total Protein 5.7 g/dL (5.7-8.2) Albumin 3.1 g/dL (3.2-4.8) Erythrocyte Sedimentation Rate 27 mm/hr (0-20) C-Reactive Protein High Sensitivity 0.85 mg/dL (<1.0) Magnesium Level 2.2 mg/dL (1.6-2.6) Test 01/07/25 11:30 01/03/25 03:00 12/31/24 05:00 12/29/24 11:10 Stool Occult Blood Negative (Negative) Stool Occult Blood Sample #3 (Negative) Vancomycin Level Trough 6.5 ug/mL (5-10) Lactic Acid Level 1.0 mmol/L (0.4-2.0) Urine Color Light-yellow (Yellow) Urine Clarity Clear (Clear) Urine pH 5.0 (5.0-9.0) Urine Specific [place] 1.011 (1.001-1.035) Urine Protein Negative (Negative) Urine Ketones Negative (Negative) Urine Blood 2+ /uL (Negative) Urine Nitrite Negative (Negative) Urine Bilirubin Negative (Negative) Urine Urobilinogen Normal mg/dL (Negative) Urine Leukocyte Esterase Negative /uL (Negative) Urine RBC 56 /hpf (0 - 4) Urine Microscopic WBC 3 /HPF (0-5) Urine Squamous Epithelial Cells None seen /hpf (<5) Urine Bacteria None seen /hpf (None Seen) Urine Mucus Few (None Seen) Urine Glucose Normal mg/dL (Normal) Test 12/29/24 09:28 12/28/24 21:38 12/28/24 19:26 12/28/24 18:50 Random Vancomycin Level 5.5 ug/mL (5-10) Influenza Type A Antigen Negative (Negative) Influenza Type B Antigen Negative (Negative) SARS-CoV-2 Antigen (Rapid) Negative (NEGATIVE) Blood Gas Specimen Type Arterial Blood Gas Sample Site Left radial Blood Gas Patient Temperature 37.0 Arterial Blood Date Drawn [id number] Arterial Blood pH 7.460 (7.350-7.450) Arterial Blood Partial Pressure CO2 30.7 mmHg (32.0-45.0) Arterial Blood Partial Pressure O2 87.6 mmHg (83.0-108.0) Arterial Blood HCO3 21.3 mmol/L (21.0-28.0) Arterial Blood Oxygen Saturation 96.1 % (94.0-98.0) Arterial Blood Base Excess -1.5 mmol/L (-2.0-3.0) Arterial Blood Oxyhemoglobin 94.8 % (94.0-98.0) Arterial Blood Carboxyhemoglobin 1.1 % (0.5-1.5) Arterial Blood Methemoglobin 0.3 % (0.0-1.5) Kevin Test Modified Blood Gas Total Hemoglobin 13.30 g/dL (12.0-16.0) Blood Gas Modality Nasal cannula FiO2 % 36.0 Troponin I High Sensitivity 8 ng/L (</=34) Test 12/28/24 15:40 Direct Bilirubin 0.6 mg/dL (<0.3) B-Type Natriuretic Peptide 313.50 pg/mL (0-100) Thyroid Stimulating Hormone (TSH) 0.68 uIU/mL (0.55-4.78) Other Laboratory Tests 01/13/25 05:50 01/12/25 05:14 Brief Hx & Hospital Course: SEE DICTATED NOTE Condition at Discharge: Fair Final Diagnosis/Problems List CHF Discharge Disposition: [facility] Facility Discharge Instruct/Medications Diet: Cardiac 2g Na,low cholest Activity: No Restrictions, As Tolerated Follow Up/Referral: FU WITH [facility] Medications: PER LINDSAY DC WITH BALWINDER Ahumada Clopidogrel Bisulfate (Plavix), 75 MG PO DAILY, (Reported) Famotidine (Pepcid Tablet), 20 MG PO BID, (Reported) Mirtazapine (Remeron), 15 MG PO HS, (Reported) Pantoprazole Sodium Sesquihydr (Protonix), 40 MG PO BID Warfarin Sodium (Warfarin Sodium), 2.5 MG PO DAILY, (Reported) Discharge Statement: "Patient was advised to return to the ER or call 911 if any headaches, dizziness, shortness of breath, chest pain, abdominal pain, bleeding, fevers, or worsening of medical condition. Patient was counseled about treatment plan, medications, possible side effects, patientverbalized understanding. All questions were answered to the best of my ability. This discharge took greater then 30 minutes in planning, reviewing documentation, counseling the patient, and discussing with other team members." ASSESSMENT ASSESSMENT Assessment CHF Date of Service: Jan 13, 2025 Billing Provider: JENNIFER DANIELSON MD Common Visit Codes: [id number] DISCH DAY >30min JENNIFER DANIELSON MD Jan 13, 2025 15:58
--- NOTE | 2025-01-13 16:16 | DVHDS ---
DATE OF DISCHARGE: 01/13/2025 DATE OF DISCHARGE TO SNF: 01/13/2025. HISTORY OF PRESENT ILLNESS: The patient is an 84-year-old lady who is admitted with complaints of severe cough with green expectoration and shortness of breath. The patient has history of atrial fibrillation, CVA, hypertension, UTIs, uterine cancer, myasthenia gravis, and pacemaker as well as thymus surgery. HOSPITAL COURSE: The patient had chest x-ray that showed bilateral infiltrates more so on the right side. A CT of chest showed patchy appearance in the right lower lobe, left lower lobe. The patient had an echocardiogram done that showed an ejection fraction of 70% with very heavily calcified mitral reflux. The patient was placed on antibiotics along with diuretics. She was seen in pulmonary consult by Dr. Ndiaye. The patient's stool for C. diff is negative. Blood cultures and sputum cultures are also negative. The patient is now improved in the symptoms and will be discharged to a [facility] facility as for med reconciliation. She was negative for influenza and COVID. FINAL DIAGNOSES: * Acute respiratory failure. * Right-sided pneumonia, gram positive, gram negative with sepsis. * Myasthenia gravis with previous thymectomy. * Atrial fibrillation, secondary hypocoagulable state. * COPD exacerbation. * History of pacemaker. * Acute diastolic heart failure. * Transaminitis. * Hypertension. * History of coronary artery disease with stent. Time spent in discharge planning and review of plan with the patient and nursing and paperwork was 41 minutes. MD ELIZABETH Remy/LINDSAY TID: [id number] RECEIPT: [id number]
[2025-01-13] MEDS ORDERED: WARFARIN SODIUM 1 MG TAB PO ONE (17:00)
[2025-01-14] MEDS ORDERED: predniSONE 20 MG TAB PO SCH (10:00)
== END 2025-01-13 17:40 | DRG 871 ==
LOC: ER 15:07 → EDBD 15:07 → OVERFLOW 20:51 → TELE-WESTW 23:59
PROVIDERS: ADMIT Internal Medicine; ATTEND Internal Medicine
DX: A41.59 Other Gram-negative sepsis (principal); I50.33 Acute on chronic diastolic (congestive) heart failure; J15.69 Pneumonia due to other Gram-negative bacteria; J15.9 Unspecified bacterial pneumonia; J96.01 Acute respiratory failure with hypoxia; E87.3 Alkalosis; I11.0 Hypertensive heart disease with heart failure; D68.69 Other thrombophilia; E11.9 Type 2 diabetes mellitus without complications; J44.0 Chronic obstructive pulmonary disease with (acute) lower respiratory infection; G70.00 Myasthenia gravis without (acute) exacerbation; Z79.02 Long term (current) use of antithrombotics/antiplatelets; J44.1 Chronic obstructive pulmonary disease with (acute) exacerbation; Z20.822 Contact with and (suspected) exposure to COVID-19; K21.9 Gastro-esophageal reflux disease without esophagitis; I48.91 Unspecified atrial fibrillation; R74.01 Elevation of levels of liver transaminase levels; I25.10 Atherosclerotic heart disease of native coronary artery without angina pectoris; Z95.5 Presence of coronary angioplasty implant and graft; Z95.0 Presence of cardiac pacemaker; Z95.1 Presence of aortocoronary bypass graft; Z86.73 Personal history of transient ischemic attack (TIA), and cerebral infarction without residual deficits; Z90.49 Acquired absence of other specified parts of digestive tract; Z90.710 Acquired absence of both cervix and uterus; Z85.42 Personal history of malignant neoplasm of other parts of uterus; Z82.49 Family history of ischemic heart disease and other diseases of the circulatory system; Z80.0 Family history of malignant neoplasm of digestive organs; I25.2 Old myocardial infarction; Z79.899 Other long term (current) drug therapy
CPT/HCPCS: 36415; 36600; 71045; 71250; 80048; 80053; 80076; 80202; 81001; 82270; 82565; 82805; 83605; 83735; 83880; 84443; 84484; 85025; 85610; 85652; 85730; 86141; 87040; 87070; 87081; 87205; 87426; 87493; 87804; 93005; 93306; 94640; 96365; 96368; 96375; 97110; 97116; 97163; 97530; 99291; G0378; J2543